=== PATIENT | female | born 1940 | race Caucasian/White ===

== ENCOUNTER → 2024-12-05 | Outpatient (CLI) | payer MEDICARE, OTHER, SELFPAY ==
[2024-12-05 12:41] LABS: Hematocrit 33.8 % (37-47); Hemoglobin 11.4 g/dL (12.0-15.0); Immature Granulocytes Count 0.010 X10^3/uL (0.0-0.0); Mean Corp Hgb Conc 33.7 g/dL (32-36); Mean Corpuscular Volume 90.1 fL (81-99); Mean Platelet Vol. 10.9 fl (6.2-12.0); NRBC Flagged by Analyzer 0 % (0-5); POSITIVE COUNT YES; POSITIVE DIFFERENTIAL YES; RBC Distribution Width CV 14.7 % (11.6-14.6); RBC Distribution Width SD 49.1 fl (35.1-43.9); Red Blood Count 3.75 M/mm3 (4.2-5.4); White Blood Count 2.5 K/mm3 (4.4-11.0)
[2024-12-05 13:31] LABS: Differential Indicated SCAN CRITERIA MET
[2024-12-05 13:45] LABS: Platelet Count 49 K/mm3 (150-450)
[2024-12-05 14:01] LABS: AST(SGOT) 44 U/L (<=31); Alanine Aminotransfer ALT/SGPT 33 U/L (<=34); Albumin, Serum 3.6 g/dL (3.4-4.8); Alkaline Phosphatase 78 U/L (35-104); Chloride 107 mmol/L (98-108); Potassium 4.3 mmol/L (3.3-5.1)
[2024-12-05 15:44] LABS: Anion Gap 12 (5-15); BUN 20 mg/dL (4-19); BUN/Creat Ratio 30.3 RATIO (10-20); Calcium,Total 9.8 mg/dL (7.6-11.0); Carbon Dioxide 19.5 mmol/L (21.0-32.0); Cholesterol 192 mg/dL (<=200); Globulin 3.6 g/dL (2.2-4.2); Glucose 136 mg/dL (70-99); Low Density Lipoprotein Calc. 102 mg/dL; Triglycerides 119 mg/dL; Very Low Density Lipoprotein 24 mg/dL (5-40); cholesterol:hdl ratio screen 2.92
== END | disposition home or self-care (01) ==
LOC: MTLAB 11:16
PROVIDERS: PCP Nurse Practitioner Family; Referring Provider Nurse Practitioner Family; Visit Provider Nurse Practitioner Family
DX: E78.5 Hyperlipidemia, unspecified (principal); I10 Essential (primary) hypertension
CPT/HCPCS: 36415; 80053; 80061; 85025

== ENCOUNTER 2025-01-15 06:36 | Day surgery (SDC) | payer MEDICARE, OTHER, SELFPAY ==
--- NOTE | 2025-01-14 16:22 | PAT.ANESEVAL ---
Pre-Assessment Diagnosis/Proposed Procedure Planned Operative Procedure(s): COLONOSCOPY Anesthesia History Anesthesia History - optimization consultant: Anesthesia History - optimization consultant Hx Hospitalization No 01/14/25 08:29 Any Problems With Anesthesia No 01/14/25 08:29 Cholinesterase deficiency No 01/14/25 08:29 You/Your Family Experience No 01/14/25 08:29 fever (hyperthermia) with Relationship Recent Exposure to Contagious Disease Does patient have nerve No 01/14/25 08:29 stimulator Patient instructed to have device shut off --Does patient have Pacemaker or ICD? When Was Last Pacemaker Check QUESTION #4 FULL TEXT: You/Your Family Experience fever (hyperthermia) with Anesthesia Last Oral Intake Last Oral intake: Last Oral Intake NPO since Meds taken in AM with sips of water? Meds patient instructed to take am of surgery PONV PONV - optimization consultant: PONV - optimization consultant Female Yes 01/14/25 08:29 HX of Motion Sickness No 01/14/25 08:29 HX of N/V After Surgery No 01/14/25 08:29 Non-Smoker Yes 01/14/25 08:29 Duration of Surgery greater No 01/14/25 08:29 than 60 minutes Number of Risk Factors 2 01/14/25 08:29 PONV Score Moderate Risk 01/14/25 08:29 Height & Weight Height & Weight: Anesthesia: Height & Weight Height 5 ft 6 in 01/09/25 09:13 Respiratory Assessment Respiratory Assessment - optimization consultant: Respiratory Tract Infection Hx - optimization consultant Hx Respiratory Tract Infection No 01/14/25 08:29 STOP Sleep Apnea STOP Sleep Apnea - optimization consultant: STOP Sleep Apnea - optimization consultant Hx Hypertension No 01/14/25 08:29 Hx Sleep Apnea No 01/14/25 08:29 CPAP BIPAP Do you snore loudly (louder No 01/14/25 08:29 than talking or can be heard Do you often feel tired/ No 01/14/25 08:29 fatigued/ sleepy during daytime? Has anyone observed you stop No 01/14/25 08:29 breathing during sleep? STOP Results Negative 01/14/25 08:29 QUESTION #5 FULL TEXT : Do you snore loudly (louder than talking or can be heard through closed doors)? 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 Specify any problems Hx of Preganancy in last 3 No 01/14/25 08:29 Months Nurse Filling Out Transfusion VLEHREYDON 01/14/25 08:29 & Questions: Date: 01/14/25 01/14/25 08:29 Time: 08:37 01/14/25 08:29 Patient unable to answer at this time (ie. confused, unrespo /Reproduction History /Reproductive History - optimization consultant: /Reproductive Hx- optimization consultant Hx Now No 01/14/25 08:29 Gestational Age (in weeks): EDC: Hx Hx Para Hx Section SAB No 01/14/25 08:29 Does the father of the baby or his family experience fever w Father of the baby Malignant Hypertension history comment [facility], [facility] Medical History (Updated 01/14/25 @ 08:36 by Kathie Alberto) Wears dentures Wears glasses Post-menopausal Cancer Diabetes Bladder disease Former smoker History of echocardiogram Abdominal pain Positive colorectal cancer screening using Cologuard test Home Medications ?Medication ?Instructions ?Recorded ?Last Taken ?Type cholecalciferol (vitamin D3) 25 25 mcg PO QDAY 01/09/25 Unknown History mcg (1,000 unit) capsule cinnamon bark 500 mg capsule 500 mg PO QDAY 01/09/25 Unknown History (Cinnamon) glipizide 5 mg tablet 5 mg PO QDAY 01/09/25 Unknown History potassium chloride 10 mEq 10 meq PO QDAY 01/09/25 Unknown History capsule,extended release Allergy/AdvReac Type Severity Reaction Status Date / Time metformin Allergy Mild Nausea Verified 01/14/25 08:27 Family History (Updated 01/09/25 @ 09:13 by Deb Wan LPN) Aunt Breast cancer Surgical History (Updated 01/14/25 @ 08:36 by Kathie Alberto) History of bilateral cataract extraction Hx of right mastectomy H/O: hysterectomy Social History (Updated 01/09/25 @ 09:13 by Deb Wan LPN) Smoking Status: Former smoker alcohol intake: never substance use type: does not use Audit: Pertinent Findings Pertinent Findings Additional pertinent findings: December 05, 2024. Platelet count is 49,000. Recommendation Anesthesia Recommendation Anesthesia recommendation: OPTIMIZED for anesthesia (Patient will get a repeat platelet count on day of surgery. Extent of procedure will depend on final results.)
[2025-01-15] VITALS (8 sets, daily range): BP systolic 99–130; BP diastolic 54–92; PULSE 66–88; RESP 16; TEMP 35.9–36.5; O2SAT 98; BMI 30.2
--- OUTSIDE RECORDS SUMMARY | 2025-01-15 06:40 | XMS RPT_ITS | CCD ---
Author Organization [facility] Inform ion Partnership [employer] [facility] Care Team Providers Care It Quality Assurance Analyst Name Role Phone Osiel Tejeda MD Primary Care Provider Murphy ARCHITECTURAL SUPERINTENDENT-C, Nicole Primary Care Physician Murphy ARCHITECTURAL SUPERINTENDENT-C, Nicole Attending Physician Murphy ARCHITECTURAL SUPERINTENDENT-C, Nicole Referring Provider Murphy, Nicole Primary Care Unavailable Murphy, Nicole Referring Unavailable Rome Gibson Attending Unavailable Nicole Arrington Primary Care Unavailable Murpyh, Nicole Attending Unavailable Murphy, Nicole Referring Unavailable Murphy Nicole Primary Care Unavailable Rome Gibson Attending Unavailable Allergies Allergy Classification Reported Allergen(s) Allergy Type Date of Onset Reaction(s) Facility (3 sources) metFORMIN Drug Allergy 10-16-2015 Other: See Comments [facility] Medications Completed/Discontinued Medications Medication Drug Class(es) Dates Sig (Normalized) Sig (Original) [id number] 200 actuat albuterol 0.09 mg/actuat metered dose inhaler (6 sources) beta2-Adrenergic Agonist Start: 05-31-2017 take 2 puff(s) by inhalation every four hours as needed albuterol HFA (PROAIR HFA) 90 mcg/actuation inhaler Inhale 2 Puffs as instructed every 4 hours as needed. 3 Inhaler 1 05/31/2017 Active Start: 10-05-2016 take 2.5 mg by inhal ation every six hours as needed albuterol (PROVENTIL) 2.5 mg /3 mL (0.083 %) nebulizer solution Use 3 mL via nebulizer every 6 hours as needed. Daily as needed 1 Package 1 10/05/2016 Active Comment on above: Use 3 mL via nebuliz er every 6 hours as needed. Daily as needed Inhale 2 Puffs as in structed every 4 hours as needed. Blood-Glucose Meter (FREESTYLE LITE METER) monitoring kit (3 sources) Start: Blood-Glucose Meter (FREESTYLE LITE METER) monitoring kit Patient tests 3 times daily DX E11.65 1 Each 0 01/27/2017 Active Comment on above: Patient tests 3 time s daily DX E11.65 canagliflozin 300 mg oral tablet (3 sources) Sodium-Glucose Cotransporter 2 Inhibitor Start: take 1 tablet by mouth once daily at breakfast canagliflozin (INVOKANA) 300 mg tablet Take 1 tablet by mouth daily with breakfast. 90 tablet 3 06/05/2020 Active Comment on above: Take 1 tablet by bridger th daily with breakfast. glipiZIDE 5 mg oral tablet (3 sources) Sulfonylurea Start: glipiZIDE (GLUCOTROL) 5 mg tablet Indications: Uncontrolled type 2 diabetes mellitus with complication, with long-term current use of insulin TAKE 1 TABLET TWICE A DAY WITH BREAKFAST AND DINNER 180 tablet 0 01/26/2021 Active Comment on above: TAKE 1 TABLET TWICE A DAY WITH BREAKFAST AND DINNER 3 ml insulin glargine 100 unt/ml pen injector (3 sources) Insulin Analog Start: insulin glargine (LANTUS SOLOSTAR U-100 INSULIN) 100 unit/mL (3 mL) INJECT 38 UNITS UNDER THE SKIN EVERY EVENING 15 Pen 3 12/06/2019 Active Comment on above: INJECT 38 UNITS UNDE R THE SKIN EVERY EVENING isopropyl alcohol 0.7 ml/ml medicated pad (3 sources) Start: ALCOHOL PREP PADS Use 3 pads per day 300 Each 3 12/06/2019 Active Comment on above: Use 3 pads per day Miscellaneous Medical Supply (BLOOD PRESSURE CUFF) misc (3 sources) Start: Miscellaneous Medical Supply (BLOOD PRESSURE CUFF) misc Indications: Essential hypertension 1 Units as directed. 1 Each 0 08/04/2017 Active Comment on above: 1 Units as directed. omeprazole 20 mg delayed release oral capsule (3 sources) Proton Pump Inhibitor Start: omeprazole (PRILOSEC) 20 mg capsule TAKE 1 CAPSULE EVERY MORNING 90 capsule 1 12/26/2017 Active Comment on above: TAKE 1 CAPSULE EVERY MORNING PARoxetine hydrochloride 20 mg oral tablet (3 sources) Serotonin Reuptake Inhibitor Start: PARoxetine (PAXIL) 20 mg tablet TAKE 1 TABLET DAILY BEFORE NOON 90 tablet 0 03/16/2021 Active Comment on above: TAKE 1 TABLET DAILY BEFORE NOON rosuvastatin calcium 10 mg oral tablet (3 sources) HMG-CoA Reductase Inhibitor Start: rosuvastatin (CRESTOR) 10 mg tablet TAKE 1 TABLET DAILY 90 tablet 1 11/12/2020 Active Comment on above: TAKE 1 TABLET DAILY sAXagliptin 5 mg oral tablet (3 sources) Dipeptidyl Peptidase 4 Inhibitor Start: take 1 tablet by mouth once daily sAXagliptin (ONGLYZA) 5 mg tab Take 1 tablet by mouth once daily. 90 tablet 3 12/06/2019 Active Comment on above: Take 1 tablet by bridger th once daily. valsartan 40 mg oral tablet (3 sources) Angiotensin 2 Receptor Poornima Start: valsartan (DIOVAN) 40 mg tablet Indications: Essential hypertension TAKE 1 TABLET DAILY 90 tablet 0 03/13/2021 Active Comment on above: TAKE 1 TABLET DAILY zafirlukast 20 mg oral tablet (3 sources) Leukotriene Receptor Antagonist Start: zafirlukast (ACCOLATE) 20 mg tablet TAKE 1 TABLET TWICE A DAY 60 tablet 0 04/28/2021 Active Comment on above: TAKE 1 TABLET TWICE A DAY Problems Active Problems Problem Classification Problem Date Documented Da te Episodic/Chronic Diabetes mellitus with complications (3 sources) Type 2 diabetes mellitus; Translations: [Type 2 diabetes mellitus with diabetic polyneuropathy] Onset: 12-06-2019 12-06-2019 Chronic Disorders of lipid metabolism (4 sources) Mixed hyperlipidemia; Translations: [Mixed hyperlipidemia] Onset: 05-20-2016 05-20-2016 Chronic Essential hypertension (4 sources) Essential hypertension; Translations: [Essential (primary) hypertension] Onset: 02-03-2017 02-03-2017 Chronic Nutritional deficiencies (3 sources) Vitamin D deficiency; Translations: [Vitamin D deficiency, unspecified] Onset: 05-20-2016 05-20-2016 Chronic Other gastrointestinal disorders (1 source) Other fecal abnormalities; Translations: [Other fecal abnormalities] Onset: 01-09-2025 Episodic Other nutritional; endocrine; and metabolic disorders (3 sources) Obese class II; Translations: [Obesity, unspecified] Onset: 08-04-2017 08-04-2017 Chronic Other nutritional; endocrine; and metabolic disorders (3 sources) Severe obesity; Translations: [Morbid (severe) obesity due to excess calories] Onset: 02-05-2019 02-05-2019 Chronic Past or Other Problems Problem Classification Problem Date Documented Da te Episodic/Chronic Other screening for suspected conditions (not mental disorders or infectious disease) (3 sources) Patient encounter status; Translations: [Encounter for screening for malignant neoplasm of colon] Onset: 02-03-2017 02-03-2017 Episodic Results Test Name Value Interpretation Reference Range Facility Surgery Visit Reporton 01-09 Surgery Visit Report [facility] [address] [place] [address] OFFICE VISIT Date of Service: 01/09/25 MR#: [id number] Acct: [id number] Name: ELIZA TOMAS Rep #: [id number] : 1940 Provider: Dr. Rome chatman MD Age/Sex: 84/F Location: [facility] Status: Signed Intake Vital Signs 01/09/25 09:13 Height 5 ft 6 in Weight: 189 lb 4 oz BMI 30.5 BP 143/78 H Blood Pressure Location Lt brachial Position Sitting Respiration 18 Pulse 69 Pulse Source Monitor Temp 97.6 F L Temp Source Temporal Pulse Oximetry (%) 97 Oxygen Delivery Method room air Intake Visit Reasons: POSITIVE COLOGUARD Chief Complaint: positive cologuard Accompanied by: Sister Is patient in pain?: Yes (abdominal cramping) Allergies No Known Allergies Allergy (Unverified 01/09/25 09:14) Medications ???Medication ???Instructions ???Recorded ???Confirmed ???Type cholecalciferol (vitamin D3) 25 25 mcg PO QDAY 01/09/25 01/09/25 H istory mcg (1,000 unit) capsule cinnamon bark 500 mg capsule 500 mg PO QDAY 01/09/25 01/09/25 H istory (Cinnamon) glipizide 5 mg tablet 5 mg PO QDAY 01/09/25 01/09/25 His tory potassium chloride 10 mEq 10 meq PO QDAY 01/09/25 01/09/25 H istory capsule,extended release Have you fallen in the past year?: No PFSH Medical History (Updated 01/09/25 @ 09:12 by Deb Wan LPN) Abdominal pain Positive colorectal cancer screening using Cologuard test Surgical History (Updated 01/09/25 @ 09:12 by Deb Wan LPN) H/O: hysterectomy Family History (Updated 01/09/25 @ 09:13 by Deb Wna LPN) Aunt Breast cancer Social History (Updated 01/09/25 @ 09:13 by Deb Wan LPN) Smoking Status: Never smoker alcohol intake: never substance use type: does not use HPI HPI HPI: The patient is a 84-year-old female who underwent recent Cologuard testing. She was found to be positive. She has never had a colonoscopy previously performed. Her primary care physician has recommended colonoscopy as a follow-up to the positive Cologuard test. Patient denies any significant family history of colon polyps or colon cancer. She denies any significant blood in the stool or black or tarry stools. She does state that she periodically will notice a little bit of blood on toilet tissue after bowel movements. ROS General General: Yes fatigue and breast cancer; No weight change, appetite, colon cancer or weakness HEENT HEENT: Yes difficulty swallowing and eye surgery; No eye injury, swollen glands or hoarseness Endo Endocrine: Yes diabetes mellitus; No thyroid disease, thyroid cancer, Hair loss, heat intolerance or cold intolerance Skin Skin: No rash or changing moles Musc Musculoskeletal: Yes back problems; No arthritis, rheumatoid arthritis, gout or joint pain Cardio Cardiovascular: No murmur, pacemaker, heart disease, atrial fibrillation, high blood pressure, heart attack, heart stent, palpitations, shortness of breath with exertion or chest pain Psych Psychiatric: No depression, anxiety or hearing voices Resp Respiratory: No shortness of breath, No sleep apnea, No cough, No COPD, No asthma, No emphysema and No wheezing Gastro Gastrointestinal: Yes abdominal pain, No nausea or vomiting, No diarrhea, No constipation, No blood in stool, No acid reflux, No hemorrhoids, No ulcers, No gallbladder problem and No black,tarry stools Dsehaun Hematologic: No blood thinners, No blood disorders, No bleeding, No anemia and No blood clots Neuro Neurologic: No numbness, No tingling and No weakness Exam Const General: cooperative, healthy appearing, comfortable and no acute distress HENMT Head: normal to inspection Eyes General: appearance normal, both eyes and all related structures Neck Neck: normal visual inspection Resp Effort Inspection: normal respiratory effort and able to speak in complete sentences GI Inspection: normal to inspection Assessment and Plan Assessment and Plan (1) Positive colorectal cancer screening using Cologuard test: Status: Acute Plan: The patient is a 84-year-old female with a positive Cologuard test recently. I have offered her a colonoscopy. We discussed the details of the planned procedure including the risks benefits and alternatives. She wishes to proceed. This will be scheduled in a timely manner. Coding Level of Care Code Off vis,new,level 3 Diagnoses Positive colorectal cancer screening using Cologuard test R19.5 Clinical Quality Measures Falls Risk Screening/Assistive Devices Have you fallen in the past year?: No 01/09/25 1012 Date Rome Jean Signature: Date (more content not included)... Normal [facility] Absolute lymphocyte countOrd ered By: Nicole Arrington on 12-05-2024 Lymphocytes Auto (Unsp spec) [#/Vol] 0.39 10*3/uL Low 0.83-4.51 [facility] Absolute neutrophil countOrd ered By: Nicole Arrington on 12-05-2024 Neutrophils (Bld) [#/Vol] 1.7 10*3/uL Low 2.0-7.7 [facility] Anion gap in Serum or Plasma Ordered By: Nicole Arrington on 12-05-2024 Anion gap [Moles/Vol] 12 mmol/L 5-15 [facility] Comment on above: Previous reported re sult: 10 Edited by: LYNDA on 12/05/24:1544 AMENDED REPORT 12/05/24 1544 GAP previously reported as: 10 Automated lymphocyte count a s percentage of total leukocytesOrdered By: Nicole Arrington on 12-05-2024 Lymphocytes/100 WBC Auto (Unsp spec) 15.7 % Low 19-41 [facility] BUN/creatinine ratioOrdered By: Nicole Arrington on 12-05-2024 Urea nitrogen/Creatinine [Mass ratio] 30.3 mg/mg High 10-20 [facility] Comment on above: Previous reported re sult: 30.1 RATIOEdited by: AUTOINS on 12/05/24:1544 AMENDED REPORT 12/05/24 1544 BUN/CRE previously reported as: 30.1 H RATIO Basophil percentageOrdered B y: Nicole Arrington on 12-05-2024 Basophils/100 WBC (Bld) 0.8 % 0-1 [facility] Bilirubin, totalOrdered By: Nicole Arrington on 12-05-2024 Bilirubin [Mass/Vol] 0.87 mg/dL 0.00-1.30 [facility] CBC W/Diff, Automatedon 10- Platelets (Bld) [#/Vol] 49 10*3/uL Invalid Interpretation Code 150450 [facility] Comment on above: Result Comment: CRIT ICAL VALUE CALLED TO YONI PANTOJA 12/05/24 1345 Priyanka Miller. RESULTS READ BACK BY REED. AMENDED REPORT 12/05/24 1345 PLT previously reported as: 49 *L K/mm3 Performed By: #### L 500.4100, L100.0100, L500.4050 #### [facility] [address] [place], [place], [id number] Calculated very low density lipoprotein (VLDL) cholesterol measurementOrdered By: Nicole Arrington on 12-05-2024 Calculated very low density lipoprotein (VLDL) cholesterol measurement 24 mg/dL - [facility] Carbon dioxide, total [Moles /volume] in Central venous bloodOrdered By: Nicole Arrington on 12-05-2024 CO2 [Moles/Vol] 19.5 mmol/L Low 21.0-32.0 [facility] Comment on above: Previous reported re sult: 21.4 mmol/LEdited by: AUTOINS on 12/05/24:1544 AMENDED REPORT 12/05/241543 CO2 previously reported as: 21.4 mmol/L Chloride assayOrdered By: Ra sridevi Arrington on 12-05-2024 Chloride [Moles/Vol] 107 mmol/L 98-108 [facility] Comprehensive Metabolic Prof ilon 12-05-2024 Albumin/Globulin [Mass ratio] 1.0 {ratio} Normal 0.9-2.4 [facility] Comment on above: Result Comment: AMENDED REPORT 12/05/241543 A/G previously reported as: 1.1 RATIO Performed By: #### L 500.4100, L100.0100, L500.4050 #### [facility] [address] [place], [address] BUN/CRE 30.3 RATIO High 10-20 [facility] Comment on above: Result Comment: AMENDED REPORT 12/05/241543 BUN/CRE previously reported as: 30.1 H RATIO Performed By: #### L 500.4100, L100.0100, L500.4050 #### [facility] [address] [place], [address] Calcium [Mass/Vol] 9.8 mg/dL Normal 7.6-11.0 [facility] Comment on above: Result Comment: AMENDED REPORT 12/05/241543 CA previously reported as: 9.6 mg/dL Performed By: #### L 500.4100, L100.0100, L500.4050 #### [facility] [address] [place], [address] CO2 [Moles/Vol] 19.5 mmol/L Low 21.0-32.0 [facility] Comment on above: Result Comment: AMENDED REPORT 12/05/241543 CO2 previously reported as: 21.4 mmol/L Performed By: #### L 500.4100, L100.0100, L500.4050 #### [facility] [address] [place], [address] Creatinine [Mass/Vol] 0.67 mg/dL Low 0.70-1.20 [facility] Comment on above: Result Comment: AMENDED REPORT 12/05/24 1544 CREAT,SERUM previously reported as: 0.65 L mg/dL Performed By: #### L 500.4100, L100.0100, L500.4050 #### [facility] [address] [place], [address] GAP 12 Normal 5-15 [facility] Comment on above: Result Comment: AMENDED REPORT 12/05/24 154 GAP previously reported as: 10 Performed By: #### L 500.4100, L100.0100, L500.4050 #### [facility] [address] [place], [address] Globulin (S) [Mass/Vol] 3.6 g/dL Normal 2.2-4.2 [facility] Comment on above: Result Comment: AMENDED REPORT 12/05/24 154 GLOB previously reported as: 3.3 g/dL Performed By: #### L 500.4100, L100.0100, L500.4050 #### [facility] [address] [place], [address] Glucose [Mass/Vol] 136 mg/dL High 70-99 [facility] Comment on above: Result Comment: AMENDED REPORT 12/05/24 154 GLU previously reported as: 133 H mg/dL Performed By: #### L 500.4100, L100.0100, L500.4050 #### [facility] [address] [place], [address] T PROT 7.2 g/dL Normal 5.9-8.4 [facility] Comment on above: Result Comment: AMENDED REPORT 12/05/24 1544 T PROT previously reported as: 7.0 g/dL Performed By: #### L 500.4100, L100.0100, L500.4050 #### [facility] [address] [place], [address] Urea nitrogen [Mass/Vol] 20 mg/dL High 4-19 [facility] Comment on above: Performed By: #### L 500.4100, L100.0100, L500.4050 #### [facility] [address] [place], [address] Eosinophil percentageOrdered By: Nicolechapo Arrington on 12-05-2024 Eosinophils/100 WBC (Bld) 2.4 % 0-5 [facility] Erythrocyte distribution wid th ratioOrdered By: [place] Murphy on 12-05-2024 Erythrocyte distribution width (RBC) [Ratio] 14.7 % High 11.6-14.6 [facility] Erythrocyte distribution wid th standard deviationOrdered By: [place] Murphy on 12-05-2024 Erythrocyte distribution width (RBC) [Ratio] 49.1 fl High 35.1-43.9 [facility] Glomerular filtration rate ( GFR) estimation/1.73 sq m using serum, plasma, or whole bOrdered By: Nicolechapo Arrington on 12-05-2024 GFR/1.73 sq M.predicted among non-blacks MDRD (S/P/Bld) [Vol rate/Area] 88 mL/min/{1.73_m2} >60 [facility] Comment on above: mL/min/1.73m2 CKD-EP I Creatinine Equation (2020) Hematocrit Auto (Bld) [Volum e fraction]Ordered By: Nicole Arrington on 12-05-2024 Hematocrit (Bld) [Volume fraction] 33.8 % Low 37-47 [facility] Hemoglobin measurementOrdere d By: Nicole Arrington on 12-05-2024 Hemoglobin (Bld) [Mass/Vol] 11.4 g/dL Low 12.0-15.0 [facility] Immature granulocytes/100 WB C Auto (Bld)Ordered By: Nicole Arrington on 12-05-2024 Immature granulocytes/100 WBC (Bld) 0.400 % 0.0-0.9 [facility] Comment on above: IG% - Immature Granu locytes (promyelocytes, myelocytes and metamyelocytes) > 1% indicates that a LEFT SHIFT is Present. LDL calc ser/plasOrdered By: Nicole Arrington on 12-05-2024 Cholesterol in LDL [Mass/Vol] 102 mg/dL [facility] Comment on above: Rxhrvllogl=391-877 m g/dL & Higher Fwiw=988 mg/dL or greaterFriedwald Equation for LDL-C Laboratory - Chemistry and C hemistry - challengeOrdered By: Nicole Arrington on 12-05-2024 AST [Catalytic activity/Vol] 44 U/L High <32 [facility] Lipid Profileon 12-05-2024 CHOL:HDL 2.92 Normal [facility] Comment on above: Performed By: #### L 500.4100, L100.0100, L500.4050 #### [facility] [address] [place], [place], [id number] Cholesterol [Mass/Vol] 192 mg/dL Normal <=200 [facility] Comment on above: Result Comment: Chol esterol level, Desirable <200 mg/dL Borderline high cholesterol 200-239 mg/dL High cholesterol >=240 mg/dL Recommendations of the NCEP Adult Treatment Panel for the following risk-cutoff thresholds for the [place] population. Performed By: #### L 500.4100, L100.0100, L500.4050 #### [facility] [address] [place], [place], [address] Cholesterol in HDL [Mass/Vol] 66 mg/dL Normal [facility] Comment on above: Result Comment: Jana onal Cholesterol Education Program (NCEP) guidelines: <40 mg/dL: Low HDL-cholesterol (major risk factor for CHD) >= 60 mg/dL: High HDL-cholesterol (negative risk factor for CHD) HDL-cholesterol is affected by a number of factors, e.g. smoking, exercise, hormones, sex and age. Performed By: #### L 500.4100, L100.0100, L500.4050 #### [facility] [address] [place], [address] Cholesterol in LDL [Mass/Vol] 102 mg/dL Normal [facility] Comment on above: Result Comment: Bord bfjwbw=503-599 mg/dL Higher Ikie=993 mg/dL or greater Friedwald Equation for LDL-C Performed By: #### L 500.4100, L100.0100, L500.4050 #### [facility] [address] [place], [address] Cholesterol in VLDL [Mass/Vol] 24 mg/dL Normal 5-40 [facility] Comment on above: Performed By: #### L 500.4100, L100.0100, L500.4050 #### [facility] [address] [place], [address] Triglyceride [Mass/Vol] 119 mg/dL Normal [facility] Comment on above: Result Comment: The drugs N-Acetylcysteine and Metamizole may falsely depress this assay. Normal range: <150 mg/dL Borderline High: 150-199 mg/dL High: 200-499 mg/dL Very High: >500 mg/dL Performed By: #### L 500.4100, L100.0100, L500.4050 #### [facility] [address] [place], [address] MCV (mean corpuscular volume ) determinationOrdered By: Nicole Arrington on 12-05-2024 MCV (RBC) [Entitic vol] 90.1 fL 81-99 [facility] Mean corpuscular hemoglobin (MCH) determinationOrdered By: Nicole Arrington on 12-05-2024 MCH (RBC) [Entitic mass] 30.4 pg 27.0-32.0 [facility] Mean corpuscular hemoglobin concentration (MCHC) determinationOrdered By: Nicole Arrington on 12-05-2024 MCHC (RBC) [Mass/Vol] 33.7 g/dL 32-36 [facility] Mean platelet volume determi nationOrdered By: Nicole Arrington on 12-05-2024 Platelet mean volume (Bld) [Entitic vol] 10.9 fL 6.2-12.0 [facility] Monocyte percentageOrdered B y: Nicole Arrington on 12-05-2024 Monocytes/100 WBC (Bld) 11.3 % High 0-10 [facility] Neutrophil percentageOrdered By: Nicole Arrington on 12-05-2024 Neutrophils/100 WBC (Bld) 69.4 % 47-70 [facility] Nucleated red blood cell per centageOrdered By: Nicole Arrington on 12-05-2024 Nucleated RBC/100 WBC (Bld) [Ratio] 0 % 0-5 [facility] Platelet countOrdered By: Ra sridevi Arrington on 12-05-2024 Platelets (Bld) [#/Vol] 49 10*3/uL Critically low 150-450 [facility] Comment on above: CRITICAL VALUE PALOMO D TO YONI PANTOJA12/05/24 1345 Priyanka Miller.RESULTS READ BACK BY REED. Previous reported result: 49 K/lb4Ceioie by: DEEPA on 12/05/24:1345 AMENDED REPORT 12/05/24 1345 PLT previously reported as: 49 *L K/mm3 Platelet estimateOrdered By: Nicole Arrington on 12-05-2024 Platelets LM Ql (Bld) MKD DEC ADEQ [facility] Potassium measurement (mass/ volume)Ordered By: Nicole Arrington on 12-05-2024 Potassium (Unsp spec) [Mass/Vol] 4.3 mmol/L 3.3-5.1 [facility] RBC Auto (Bld) [#/Vol]Ordere d By: Nicole Arrington on 12-05-2024 RBC (Bld) [#/Vol] 3.75 10*6/uL Low 4.2-5.4 [facility] Screening total cholesterol/ high density lipoprotein (HDL) cholesterol ratioOrdered By: Nicole Arrington on 12-05-2024 Cholesterol.total/Choles terol in HDL [Mass ratio] 2.92 {ratio} [facility] Serum creatinine measurement (mass/volume)Ordered By: Nicole Arrington on 12-05-2024 Creatinine [Mass/Vol] 0.67 mg/dL Low 0.70-1.20 [facility] Comment on above: Previous reported re sult: 0.65 mg/dLEdited by: LYNDA on 12/05/24:1544 AMENDED REPORT 12/05/24 1544 CREAT,SERUM previously reported as: 0.65 L mg/dL Serum globulin measurementOr dered By: Nicole Arrington on 12-05-2024 Globulin (S) [Mass/Vol] 3.6 g/dL 2.2-4.2 [facility] Comment on above: Previous reported re sult: 3.3 g/dLEdited by: LYNDA on 12/05/24:1544 AMENDED REPORT 12/05/241543 GLOB previously reported as: 3.3 g/dL Serum glucose measurement (m ass/volume)Ordered By: Nicole Arrington on 12-05-2024 Glucose [Mass/Vol] 136 mg/dL High 70-99 [facility] Comment on above: Previous reported re sult: 133 mg/dLEdited by: LYNDA on 12/05/24:1544 AMENDED REPORT 12/05/24 154 GLU previously reported as: 133 H mg/dL Serum or plasma alanine jefferson otransferase (ALT) measurementOrdered By: Nicole Arrington on 12-05-2024 ALT [Catalytic activity/Vol] 33 U/L <35 [facility] Serum or plasma albumin vikki urement (mass/volume)Ordered By: Nicole Arrington on 12-05-2024 Albumin [Mass/Vol] 3.6 g/dL 3.4-4.8 [facility] Serum or plasma albumin/glob ulin mass ratioOrdered By: Nicole Arrington on 12-05-2024 Albumin/Globulin [Mass ratio] 1.0 {ratio} 0.9-2.4 [facility] Comment on above: Previous reported re sult: 1.1 RATIOEdited by: LYNDA on 12/05/24:1544 AMENDED REPORT 12/05/241543 A/G previously reported as: 1.1 RATIO Serum or plasma alkaline sade sphatase measurementOrdered By: Nicole Arrington on 12-05-2024 ALP [Catalytic activity/Vol] 78 U/L 35-104 [facility] Serum or plasma calcium vikki urement (mass/volume)Ordered By: Nicole Arrington on 12-05-2024 Calcium [Mass/Vol] 9.8 mg/dL 7.6-11.0 [facility] Comment on above: Previous reported re sult: 9.6 mg/dLEdited by: AUTOINS on 12/05/24:1544 AMENDED REPORT 12/05/24 1544 CA previously reported as: 9.6 mg/dL Serum or plasma cholesterol in HDL measurement (mass/volume)Ordered By: Nicole Arrington on 12-05-2024 Cholesterol in HDL [Mass/Vol] 66 mg/dL >40 [facility] Comment on above: National Cholesterol Education Program (NCEP) guidelines:<40 mg/dL: Low HDL-cholesterol (major risk factor for CHD)>= 60 mg/dL: High HDL-cholesterol (negative risk factor for CHD)HDL-cholesterol is affected by a number of factors, e.g. smoking, exercise, hormones, sex and age. Serum or plasma cholesterol measurement (mass/volume)Ordered By: Nicole Arrington on 12-05-2024 Cholesterol [Mass/Vol] 192 mg/dL <201 [facility] Comment on above: Cholesterol level, D esirable <200 mg/dLBorderline high cholesterol 200-239 mg/dLHigh cholesterol >=240 mg/dLRecommendations of the NCEP Adult Treatment Panel for the following risk-cutoff thresholds for the [place] population. Serum or plasma urea nitroge n measurement (mass/volume)Ordered By: Nicole Arrington on 12-05-2024 Urea nitrogen [Mass/Vol] 20 mg/dL High 4-19 [facility] Sodium levelOrdered By: Melissa Arrington on 12-05-2024 Sodium [Moles/Vol] 139 mmol/L 133-145 [facility] Total proteinOrdered By: Josh Arrington on 12-05-2024 Protein [Mass/Vol] 7.2 g/dL 5.9-8.4 [facility] Comment on above: Previous reported re sult: 7.0 g/dLEdited by: AUTOINS on 12/05/24:1544 AMENDED REPORT 12/05/24 1544 T PROT previously reported as: 7.0 g/dL Triglycerides measurementOrd ered By: Nicole Arrington on 12-05-2024 Triglyceride [Mass/Vol] 119 mg/dL <199 [facility] Comment on above: The drugs N-Acetylcy steine and Metamizole may falsely depress this assay. Normal range: <150 mg/dLBorderline High: 150-199 mg/dLHigh: 200-499 mg/dLVery High: >500 mg/dL White blood cell (WBC) count Ordered By: Nicole Arrington on 12-05-2024 WBC (Bld) [#/Vol] 2.5 10*3/uL Low 4.4-11.0 [facility] 06-17-2021 ELIS Telephone (AGINTMLW) THOMELIZA I ([id number]) 1940 F Date Time Provider Department 06/17/21 OSIEL TEJEDA AGINTMLW During your visit today, we recorded the following information about you: Keyla Tate LPN 06/17/2021 10:48 AM Signed Attempted to reach pt via telephone to assist with establishment of a new PCP in our office. Also attempting to reach out for an ACO- A1C. Unable to reach patient via telephone, left voicemail requesting patient to call the office for the above. Keyla Tate LPN Allergies As of Date: 06/17/2021 Noted Allergy Reaction METFORMIN 10/16/2015 14 - Other: See Comments Comments: Abdominal pain Date Reviewed: 06/18/2020 Reviewed by: Osiel Tejeda - Fully Assessed Reason for Visit: ACO- A1C outreach [Other] Cmt: First attempt Prescriptions as of 06/17/2021 - zafirlukast (ACCOLATE) 20 mg tablet TAKE 1 TABLET TWICE A DAY - PARoxetine (PAXIL) 20 mg tablet TAKE 1 TABLET DAILY BEFORE NOON - valsartan (DIOVAN) 40 mg tablet TAKE 1 TABLET DAILY - glipiZIDE (GLUCOTROL) 5 mg tablet TAKE 1 TABLET TWICE A DAY WITH BREAKFAST AND DINNER - rosuvastatin (CRESTOR) 10 mg tablet TAKE 1 TABLET DAILY - canagliflozin (INVOKANA) 300 mg tablet Take 1 tablet by mouth daily with breakfast. - ALCOHOL PREP PADS Use 3 pads per day - blood sugar diagnostic (FREESTYLE LITE STRIPS) test strip USE TO TEST THREE TIMES A DAY (E11.8, E11.65, Z79.4); IDDM - Lancing Device (LANCING DEVICE WITH LANCETS) misc Use as instructed; IDDM, E 11.65 - insulin glargine (LANTUS SOLOSTAR U-100 INSULIN) 100 unit/mL (3 mL) INJECT 38 UNITS UNDER THE SKIN EVERY EVENING - sAXagliptin (ONGLYZA) 5 mg tab Take 1 tablet by mouth once daily. - Insulin [place], Disposable, (BD ULTRA-FINE MICRO PEN NEEDLE) 32 gauge x 1/4 USE 1 PEN NEEDLE TO INJECT UNDER THE SKIN ONCE DAILY - EASY COMFORT LANCETS 30 gauge misc 1 Each twice daily. E11.8, E11.65, Z79.4 - omeprazole (PRILOSEC) 20 mg capsule TAKE 1 CAPSULE EVERY MORNING - Miscellaneous Medical Supply (BLOOD PRESSURE CUFF) misc 1 Units as directed. - albuterol HFA (PROAIR HFA) 90 mcg/actuation inhaler Inhale 2 Puffs as instructed every 4 hours as needed. - Blood-Glucose Meter (FREESTYLE LITE METER) monitoring kit Patient tests 3 times daily DX E11.65 - albuterol (PROVENTIL) 2.5 mg /3 mL (0.083 %) nebulizer solution Use 3 mL via nebulizer every 6 hours as needed. 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 She is past due for a follow up with me. If she needs this complete, I need to see her. Otherwise, we have faxed the request to her electric hoist operator and she can call and follow up with them. Thanks. Dr. Nikhil Dale MA 02/12/2021 7:51 AM Signed Both phone VM box are full. REGGIE Bravo MA 02/13/2021 8:47 AM Signed Left message informing patient if she would like Dr. Tejeda to fill out form she will need to call and schedule appointment, also that form has been forwarded to electric hoist operator. REGGIE Melo MA 02/16/2021 5:11 PM Signed Left message informing patient that she needs to schedule appointment with Dr. Tejeda. Her Nuclear Medicine Technologist faxed us saying that she has cancelled appointments, so I told id she would like them to fill it out she would need to schedule with them. Order is placed in my fax folder Letty Dale MA Allergies As of Date: 02/12/2021 Noted Allergy Reaction METFORMIN 10/16/2015 14 - Other: See Comments Comments: Abdominal pain Date Reviewed: 06/18/2020 Reviewed by: Osiel Tejeda - Fully Assessed Reason for Visit: Orders [681] Prescriptions as of 02/16/2021 - glipiZIDE (GLUCOTROL) 5 mg tablet TAKE 1 TABLET TWICE A DAY WITH BREAKFAST AND DINNER - zafirlukast (ACCOLATE) 20 mg tablet TAKE 1 TABLET TWICE A DAY - valsartan (DIOVAN) 40 mg tablet TAKE 1 TABLET DAILY - rosuvastatin (CRESTOR) 10 mg tablet TAKE 1 TABLET DAILY - PARoxetine (PAXIL) 20 mg tablet TAKE 1 TABLET DAILY BEFORE NOON - canagliflozin (INVOKANA) 300 mg tablet Take 1 tablet by mouth daily with breakfast. - ALCOHOL PREP PADS Use 3 pads per day - blood sugar diagnostic (FREESTYLE LITE STRIPS) test strip USE TO TEST THREE TIMES A DAY (E11.8, E11.65, Z79.4); IDDM - Lancing Device (LANCING DEVICE WITH LANCETS) misc Use as instructed; IDDM, E 11.65 - insulin glargine (LANTUS SOLOSTAR U-100 INSULIN) 100 unit/mL (3 mL) INJECT 38 UNITS UNDER THE SKIN EVERY EVENING - sAXagliptin (ONGLYZA) 5 mg tab Take 1 tablet by mouth once daily. - Insulin [place], Disposable, (BD ULTRA-FINE MICRO PEN NEEDLE) 32 gauge x 1/4 USE 1 PEN NEEDLE TO INJECT UNDER THE SKIN ONCE DAILY - EASY COMFORT LANCETS 30 gauge misc 1 Each twice daily. E11.8, E11.65, Z79.4 - omeprazole (PRILOSEC) 20 mg capsule TAKE 1 CAPSULE EVERY MORNING - Miscellaneous Medical Supply (BLOOD PRESSURE CUFF) misc 1 Units as directed. - albuterol HFA (PROAIR HFA) 90 mcg/actuation inhaler Inhale 2 Puffs as instructed every 4 hours as needed. - Blood-Glucose Meter (FREESTYLE LITE METER) monitoring kit Patient tests 3 times daily DX E11.65 - albuterol (PROVENTIL) 2.5 mg /3 mL (0.083 %) nebulizer solution Use 3 mL via nebulizer every 6 hours as needed. Daily as needed Problem List As Of Date 02/12/2021 Noted Resolved Mixed hyperlipidemia [E78.2] 05/20/2016 Vitamin D deficiency [E55.9] 05/20/2016 Essential hypertension [I10] 02/03/2017 Abdominal pain [R10.9] 02/03/2017 08/04/2017 Nausea [R11.0] 02/03/2017 08/04/2017 Encounter for screening colonoscopy [Z12.11] 02/03/2017 Obesity, Class II, BMI 35-39.9 [E66.9] 08/04/2017 Class 2 severe obesity due to excess calories w*02/05/2019 Type 2 diabetes mellitus with diabetic polyneur*12/06/2019 Encounter Status:Closed by ANNETTE XAVIER on 02/13/21 [facility] OBSOLETEon 01-26-2021 OBSOLETE Refill (AGINTMLW) THOMELIZA Radha ([id number]) 1940 F Date Time Provider Department 01/26/21 OSIEL TEJEDA AGINTMLW During your visit today, we recorded the following information about you: Letty Dale MA 01/26/2021 8:44 AM Signed Pharmacy requesting refills as follows: Last Office Visit 06/18/20. Last Refill 07/29/20. Pending Prescriptions Disp Refills ZAFIRLUKAST 20 MG TABLET 180 tablet 3 Sig: TAKE 1 TABLET TWICE A DAY BILL: Yes Please review and advise. REGGIE Bravo MD 01/26/2021 9:48 AM Signed Patient is past due for a follow up. No further refills until seen. Thanks. Letty Dale MA 01/26/2021 2:34 PM Signed VM box was full. REGGIE Bravo MA 01/28/2021 11:02 AM Signed Left message informing her that she is due for follow up appointment. Letty Dale MA Allergies As of Date: 01/26/2021 Noted Allergy Reaction METFORMIN 10/16/2015 14 - Other: See Comments Comments: Abdominal pain Date Reviewed: 06/18/2020 Reviewed by: Osiel Tejeda - Fully Assessed Reason for Visit: Refill Request [94] Order(s):zafirlukast (ACCOLATE) 20 mg tabletTAKE 1 TABLET TWICE A DAYDisp: 180 tabletRfl: 0 Prescriptions as of 01/28/2021 - glipiZIDE (GLUCOTROL) 5 mg tablet TAKE 1 TABLET TWICE A DAY WITH BREAKFAST AND DINNER - zafirlukast (ACCOLATE) 20 mg tablet TAKE 1 TABLET TWICE A DAY - valsartan (DIOVAN) 40 mg tablet TAKE 1 TABLET DAILY - rosuvastatin (CRESTOR) 10 mg tablet TAKE 1 TABLET DAILY - PARoxetine (PAXIL) 20 mg tablet TAKE 1 TABLET DAILY BEFORE NOON - canagliflozin (INVOKANA) 300 mg tablet Take 1 tablet by mouth daily with breakfast. - ALCOHOL PREP PADS Use 3 pads per day - blood sugar diagnostic (FREESTYLE LITE STRIPS) test strip USE TO TEST THREE TIMES A DAY (E11.8, E11.65, Z79.4); IDDM - Lancing Device (LANCING DEVICE WITH LANCETS) misc Use as instructed; IDDM, E 11.65 - insulin glargine (LANTUS SOLOSTAR U-100 INSULIN) 100 unit/mL (3 mL) INJECT 38 UNITS UNDER THE SKIN EVERY EVENING - sAXagliptin (ONGLYZA) 5 mg tab Take 1 tablet by mouth once daily. - Insulin [place], Disposable, (BD ULTRA-FINE MICRO PEN NEEDLE) 32 gauge x 1/4 USE 1 PEN NEEDLE TO INJECT UNDER THE SKIN ONCE DAILY - EASY COMFORT LANCETS 30 gauge misc 1 Each twice daily. E11.8, E11.65, Z79.4 - omeprazole (PRILOSEC) 20 mg capsule TAKE 1 CAPSULE EVERY MORNING - Miscellaneous Medical Supply (BLOOD PRESSURE CUFF) misc 1 Units as directed. - albuterol HFA (PROAIR HFA) 90 mcg/actuation inhaler Inhale 2 Puffs as instructed every 4 hours as needed. - Blood-Glucose Meter (FREESTYLE LITE METER) monitoring kit Patient tests 3 times daily DX E11.65 - albuterol (PROVENTIL) 2.5 mg /3 mL (0.083 %) nebulizer solution Use 3 mL via nebulizer every 6 hours as needed. Daily as needed Problem List As Of Date 01/26/2021 Noted Resolved Mixed hyperlipidemia [E78.2] 05/20/2016 Vitamin D deficiency [E55.9] 05/20/2016 Essential hypertension [I10] 02/03/2017 Abdominal pain [R10.9] 02/03/2017 08/04/2017 Nausea [R11.0] 02/03/2017 08/04/2017 Encounter for screening colonoscopy [Z12.11] 02/03/2017 Obesity, Class II, BMI 35-39.9 [E66.9] 08/04/2017 Class 2 severe obesity due to excess calories w*02/05/2019 Type 2 diabetes mellitus with diabetic polyneur*12/06/2019 Prescriptions ordered this encounter Disp Refills Start End ZAFIRLUKAST 20 MG TABLET 180 * 0 01/26/2021 Sig: TAKE 1 TABLET TWICE A DAY Medications Discontinued During This Encounter Prescriptions - zafirlukast (ACCOLATE) 20 mg tablet (Discontinued) TAKE 1 TABLET TWICE A DAY Encounter Status:Closed by OISEL TEJEDA on 01/26/21 [facility] OBSOLETE Refill (ENDMED) ELIZA TOMAS I ([id number]) 1940 F Date Time Provider Department 01/26/21 CHERELLE ROJAS During your visit today, we recorded the following information about you: Nataly Frost MA 01/26/2021 9:18 AM Signed Requester: Pharmacy Last Visit in Endocrinology: Provider name: Cherelle OlearyTOM crawford , Date 06/05/2020 Next Scheduled Appt in Endo: Visit date not found Last Refill: 02/18/2020 Number of Refills given: 3 Pending Prescriptions Disp Refills GLIPIZIDE 5 MG TABLET 180 tablet 3 Sig: TAKE 1 TABLET TWICE A DAY WITH BREAKFAST AND DINNER BILL: No Please review and advise. Nataly Frost MA Allergies As of Date: 01/26/2021 Noted Allergy Reaction METFORMIN 10/16/2015 14 - Other: See Comments Comments: Abdominal pain Date Reviewed: 06/18/2020 Reviewed by: Osiel Tejeda - Fully Assessed Reason for Visit: Refill Request [94] Visit Diagnosis:Uncontroll ed type 2 diabetes mellitus with complication, with long-term current use of insulin (HCC) [E11.8, E11.65, Z79.4] Order(s):glipiZIDE (GLUCOTROL) 5 mg tabletTAKE 1 TABLET TWICE A DAY WITH BREAKFAST AND DINNERDisp: 180 tabletRfl: 0 Prescriptions as of 01/26/2021 - glipiZIDE (GLUCOTROL) 5 mg tablet TAKE 1 TABLET TWICE A DAY WITH BREAKFAST AND DINNER - zafirlukast (ACCOLATE) 20 mg tablet TAKE 1 TABLET TWICE A DAY - valsartan (DIOVAN) 40 mg tablet TAKE 1 TABLET DAILY - rosuvastatin (CRESTOR) 10 mg tablet TAKE 1 TABLET DAILY - PARoxetine (PAXIL) 20 mg tablet TAKE 1 TABLET DAILY BEFORE NOON - canagliflozin (INVOKANA) 300 mg tablet Take 1 tablet by mouth daily with breakfast. - ALCOHOL PREP PADS Use 3 pads per day - blood sugar diagnostic (FREESTYLE LITE STRIPS) test strip USE TO TEST THREE TIMES A DAY (E11.8, E11.65, Z79.4); IDDM - Lancing Device (LANCING DEVICE WITH LANCETS) [facility] Use as instructed; IDDM, E 11.65 - insulin glargine (LANTUS SOLOSTAR U-100 INSULIN) 100 unit/mL (3 mL) INJECT 38 UNITS UNDER THE SKIN EVERY EVENING - sAXagliptin (ONGLYZA) 5 mg tab Take 1 tablet by mouth once daily. - Insulin [place], Disposable, (BD ULTRA-FINE MICRO PEN NEEDLE) 32 gauge x 1/4 USE 1 PEN NEEDLE TO INJECT UNDER THE SKIN ONCE DAILY - EASY COMFORT LANCETS 30 gauge misc 1 Each twice daily. E11.8, E11.65, Z79.4 - omeprazole (PRILOSEC) 20 mg capsule TAKE 1 CAPSULE EVERY MORNING - Miscellaneous Medical Supply (BLOOD PRESSURE CUFF) misc 1 Units as directed. - albuterol HFA (PROAIR HFA) 90 mcg/actuation inhaler Inhale 2 Puffs as instructed every 4 hours as needed. - Blood-Glucose Meter (FREESTYLE LITE METER) monitoring kit Patient tests 3 times daily DX E11.65 - albuterol (PROVENTIL) 2.5 mg /3 mL (0.083 %) nebulizer solution Use 3 mL via nebulizer every 6 hours as needed. Daily as needed Problem List As Of Date 01/26/2021 Noted Resolved Mixed hyperlipidemia [E78.2] 05/20/2016 Vitamin D deficiency [E55.9] 05/20/2016 Essential hypertension [I10] 02/03/2017 Abdominal pain [R10.9] 02/03/2017 08/04/2017 Nausea [R11.0] 02/03/2017 08/04/2017 Encounter for screening colonoscopy [Z12.11] 02/03/2017 Obesity, Class II, BMI 35-39.9 [E66.9] 08/04/2017 Class 2 severe obesity due to excess calories w*02/05/2019 Type 2 diabetes mellitus with diabetic polyneur*12/06/2019 Prescriptions ordered this encounter Disp Refills Start End GLIPIZIDE 5 MG TABLET 180 * 0 01/26/2021 Sig: TAKE 1 TABLET TWICE A DAY WITH BREAKFAST AND DINNER Medications Discontinued During This Encounter Prescriptions - glipiZIDE (GLUCOTROL) 5 mg tablet (Discontinued) 1 tablet twice daily with breakfast and dinner Encounter Status:Closed by CHERELLE ROJAS on 01/26/21 [facility] CNCOon 12-18-2020 CNCO Letter Text [facility] OBSOLETEon 12-15-2020 OBSOLETE Refill (AGINTMLW) ELIZA TOMAS I ([id number]) 1940 F Date Time Provider Department 12/15/20 OSIEL TEJEDA AGINTMLW During your visit today, we recorded the following information about you: Keyla Tate LPN 12/15/2020 6:45 AM Signed Last Office Visit 06/18/2020. Last Refill 06/18/2020. Last labs 08/19/2020. Pending Prescriptions Disp Refills VALSARTAN 40 MG TABLET 90 tablet 3 Sig: TAKE 1 TABLET DAILY BILL: Yes Please review and advise. Keyla Tate LPN Allergies As of Date: 12/15/2020 Noted Allergy Reaction METFORMIN 10/16/2015 14 - Other: See Comments Comments: Abdominal pain Date Reviewed: 06/18/2020 Reviewed by: Osiel Tejeda - Fully Assessed Reason for Visit: Refill Request [94] Visit Diagnosis:Essential hypertension [I10] Order(s):valsartan (DIOVAN) 40 mg tabletTAKE 1 TABLET DAILYDisp: 90 tabletRfl: 0 Prescriptions as of 12/15/2020 - valsartan (DIOVAN) 40 mg tablet TAKE 1 TABLET DAILY - rosuvastatin (CRESTOR) 10 mg tablet TAKE 1 TABLET DAILY - PARoxetine (PAXIL) 20 mg tablet TAKE 1 TABLET DAILY BEFORE NOON - zafirlukast (ACCOLATE) 20 mg tablet TAKE 1 TABLET TWICE A DAY - canagliflozin (INVOKANA) 300 mg tablet Take 1 tablet by mouth daily with breakfast. - glipiZIDE (GLUCOTROL) 5 mg tablet 1 tablet twice daily with breakfast and dinner - ALCOHOL PREP PADS Use 3 pads per day - blood sugar diagnostic (FREESTYLE LITE STRIPS) test strip USE TO TEST THREE TIMES A DAY (E11.8, E11.65, Z79.4); IDDM - Lancing Device (LANCING DEVICE WITH LANCETS) [facility] Use as instructed; IDDM, E 11.65 - insulin glargine (LANTUS SOLOSTAR U-100 INSULIN) 100 unit/mL (3 mL) INJECT 38 UNITS UNDER THE SKIN EVERY EVENING - sAXagliptin (ONGLYZA) 5 mg tab Take 1 tablet by mouth once daily. - Insulin [place], Disposable, (BD ULTRA-FINE MICRO PEN NEEDLE) 32 gauge x 1/4 USE 1 PEN NEEDLE TO INJECT UNDER THE SKIN ONCE DAILY - EASY COMFORT LANCETS 30 gauge misc 1 Each twice daily. E11.8, E11.65, Z79.4 - omeprazole (PRILOSEC) 20 mg capsule TAKE 1 CAPSULE EVERY MORNING - Miscellaneous Medical Supply (BLOOD PRESSURE CUFF) misc 1 Units as directed. - albuterol HFA (PROAIR HFA) 90 mcg/actuation inhaler Inhale 2 Puffs as instructed every 4 hours as needed. - Blood-Glucose Meter (FREESTYLE LITE METER) monitoring kit Patient tests 3 times daily DX E11.65 - albuterol (PROVENTIL) 2.5 mg /3 mL (0.083 %) nebulizer solution Use 3 mL via nebulizer every 6 hours as needed. Daily as needed Problem List As Of Date 12/15/2020 Noted Resolved Mixed hyperlipidemia [E78.2] 05/20/2016 Vitamin D deficiency [E55.9] 05/20/2016 Essential hypertension [I10] 02/03/2017 Abdominal pain [R10.9] 02/03/2017 08/04/2017 Nausea [R11.0] 02/03/2017 08/04/2017 Encounter for screening colonoscopy [Z12.11] 02/03/2017 Obesity, Class II, BMI 35-39.9 [E66.9] 08/04/2017 Class 2 severe obesity due to excess calories w*02/05/2019 Type 2 diabetes mellitus with diabetic polyneur*12/06/2019 Prescriptions ordered this encounter Disp Refills Start End VALSARTAN 40 MG TABLET 90 t* 0 12/15/2020 Sig: TAKE 1 TABLET DAILY Medications Discontinued During This Encounter Prescriptions - valsartan (DIOVAN) 40 mg tablet (Discontinued) Take 1 tablet by mouth once daily. Encounter Status:Closed by OSIEL TEJEDA on 12/15/20 [facility] OBSOLETEon 12-11-2020 OBSOLETE Refill (ENDMED) ELIZA TOMAS I ([id number]) 1940 F Date Time Provider Department 12/11/20 CHERELLE ROJAS During your visit today, we recorded the following information about you: Dianelys Doran RN 12/11/2020 8:17 AM Signed RX DENIED. FRANCHESKA: 06/05/2020 Francisco Javier BUNCH: None was supposed to follow up in 3 months. Patient needs an appt scheduled then a bridge RX can be sent. Encounter closed. Allergies As of Date: 12/11/2020 Noted Allergy Reaction METFORMIN 10/16/2015 14 - Other: See Comments Comments: Abdominal pain Date Reviewed: 06/18/2020 Reviewed by: Osiel Tejeda - Fully Assessed Reason for Visit: Refill Request [94] Prescriptions as of 12/11/2020 - rosuvastatin (CRESTOR) 10 mg tablet TAKE 1 TABLET DAILY - PARoxetine (PAXIL) 20 mg tablet TAKE 1 TABLET DAILY BEFORE NOON - zafirlukast (ACCOLATE) 20 mg tablet TAKE 1 TABLET TWICE A DAY - valsartan (DIOVAN) 40 mg tablet Take 1 tablet by mouth once daily. - canagliflozin (INVOKANA) 300 mg tablet Take 1 tablet by mouth daily with breakfast. - glipiZIDE (GLUCOTROL) 5 mg tablet 1 tablet twice daily with breakfast and dinner - ALCOHOL PREP PADS Use 3 pads per day - blood sugar diagnostic (FREESTYLE LITE STRIPS) test strip USE TO TEST THREE TIMES A DAY (E11.8, E11.65, Z79.4); IDDM - Lancing Device (LANCING DEVICE WITH LANCETS) [facility] Use as instructed; IDDM, E 11.65 - insulin glargine (LANTUS SOLOSTAR U-100 INSULIN) 100 unit/mL (3 mL) INJECT 38 UNITS UNDER THE SKIN EVERY EVENING - sAXagliptin (ONGLYZA) 5 mg tab Take 1 tablet by mouth once daily. - Insulin [place], Disposable, (BD ULTRA-FINE MICRO PEN NEEDLE) 32 gauge x 1/4 USE 1 PEN NEEDLE TO INJECT UNDER THE SKIN ONCE DAILY - EASY COMFORT LANCETS 30 gauge misc 1 Each twice daily. E11.8, E11.65, Z79.4 - omeprazole (PRILOSEC) 20 mg capsule TAKE 1 CAPSULE EVERY MORNING - Miscellaneous Medical Supply (BLOOD PRESSURE CUFF) misc 1 Units as directed. - albuterol HFA (PROAIR HFA) 90 mcg/actuation inhaler Inhale 2 Puffs as instructed every 4 hours as needed. - Blood-Glucose Meter (FREESTYLE LITE METER) monitoring kit Patient tests 3 times daily DX E11.65 - albuterol (PROVENTIL) 2.5 mg /3 mL (0.083 %) nebulizer solution Use 3 mL via nebulizer every 6 hours as needed. Daily as needed Problem List As Of Date 12/11/2020 Noted Resolved Mixed hyperlipidemia [E78.2] 05/20/2016 Vitamin D deficiency [E55.9] 05/20/2016 Essential hypertension [I10] 02/03/2017 Abdominal pain [R10.9] 02/03/2017 08/04/2017 Nausea [R11.0] 02/03/2017 08/04/2017 Encounter for screening colonoscopy [Z12.11] 02/03/2017 Obesity, Class II, BMI 35-39.9 [E66.9] 08/04/2017 Class 2 severe obesity due to excess calories w*02/05/2019 Type 2 diabetes mellitus with diabetic polyneur*12/06/2019 Encounter Status:Closed by DIANELYS DORAN RN on 12/11/20 [facility] OBSOLETEon 11-12-2020 OBSOLETE Refill (AGINTMLW) ELIZA TOMAS I ([id number]) 1940 F Date Time Provider Department 11/12/20 OSIEL TEJEDA AGINTMLW During your visit today, we recorded the following information about you: Keyla Tate LPN 11/12/2020 7:29 AM Signed Last Office Visit 06/18/2020. Last Refill 08/14/2020. Last labs 08/19/2020. Pending Prescriptions Disp Refills ROSUVASTATIN 10 MG TABLET 90 tablet 3 Sig: TAKE 1 TABLET DAILY BILL: Yes Please review and advise. Keyla Tate LPN Allergies As of Date: 11/12/2020 Noted Allergy Reaction METFORMIN 10/16/2015 14 - Other: See Comments Comments: Abdominal pain Date Reviewed: 06/18/2020 Reviewed by: Osiel Tejeda - Fully Assessed Reason for Visit: Refill Request [94] Order(s):rosuvastati n (CRESTOR) 10 mg tabletTAKE 1 TABLET DAILYDisp: 90 tabletRfl: 1 Prescriptions as of 11/12/2020 - rosuvastatin (CRESTOR) 10 mg tablet TAKE 1 TABLET DAILY - PARoxetine (PAXIL) 20 mg tablet TAKE 1 TABLET DAILY BEFORE NOON - zafirlukast (ACCOLATE) 20 mg tablet TAKE 1 TABLET TWICE A DAY - valsartan (DIOVAN) 40 mg tablet Take 1 tablet by mouth once daily. - canagliflozin (INVOKANA) 300 mg tablet Take 1 tablet by mouth daily with breakfast. - glipiZIDE (GLUCOTROL) 5 mg tablet 1 tablet twice daily with breakfast and dinner - ALCOHOL PREP PADS Use 3 pads per day - blood sugar diagnostic (FREESTYLE LITE STRIPS) test strip USE TO TEST THREE TIMES A DAY (E11.8, E11.65, Z79.4); IDDM - Lancing Device (LANCING DEVICE WITH LANCETS) misc Use as instructed; IDDM, E 11.65 - insulin glargine (LANTUS SOLOSTAR U-100 INSULIN) 100 unit/mL (3 mL) INJECT 38 UNITS UNDER THE SKIN EVERY EVENING - sAXagliptin (ONGLYZA) 5 mg tab Take 1 tablet by mouth once daily. - Insulin [place], Disposable, (BD ULTRA-FINE MICRO PEN NEEDLE) 32 gauge x 1/4 USE 1 PEN NEEDLE TO INJECT UNDER THE SKIN ONCE DAILY - EASY COMFORT LANCETS 30 gauge misc 1 Each twice daily. E11.8, E11.65, Z79.4 - omeprazole (PRILOSEC) 20 mg capsule TAKE 1 CAPSULE EVERY MORNING - Miscellaneous Medical Supply (BLOOD PRESSURE CUFF) misc 1 Units as directed. - albuterol HFA (PROAIR HFA) 90 mcg/actuation inhaler Inhale 2 Puffs as instructed every 4 hours as needed. - Blood-Glucose Meter (FREESTYLE LITE METER) monitoring kit Patient tests 3 times daily DX E11.65 - albuterol (PROVENTIL) 2.5 mg /3 mL (0.083 %) nebulizer solution Use 3 mL via nebulizer every 6 hours as needed. Daily as needed Problem List As Of Date 11/12/2020 Noted Resolved Mixed hyperlipidemia [E78.2] 05/20/2016 Vitamin D deficiency [E55.9] 05/20/2016 Essential hypertension [I10] 02/03/2017 Abdominal pain [R10.9] 02/03/2017 08/04/2017 Nausea [R11.0] 02/03/2017 08/04/2017 Encounter for screening colonoscopy [Z12.11] 02/03/2017 Obesity, Class II, BMI 35-39.9 [E66.9] 08/04/2017 Class 2 severe obesity due to excess calories w*02/05/2019 Type 2 diabetes mellitus with diabetic polyneur*12/06/2019 Prescriptions ordered this encounter Disp Refills Start End ROSUVASTATIN 10 MG TABLET 90 t* 1 11/12/2020 Sig: TAKE 1 TABLET DAILY Medications Discontinued During This Encounter Prescriptions - rosuvastatin (CRESTOR) 10 mg tablet (Discontinued) TAKE 1 TABLET DAILY Encounter Status:Closed by OSIEL TEJEDA on 11/12/20 [facility] OBSOLETE Refill (ENDMED) ELIZA TOMAS I ([id number]) 1940 F Date Time Provider Department 11/12/20 CHERELLE ROJAS During your visit today, we recorded the following information about you: Elina Metz 11/12/2020 8:24 AM Signed Requester: Pharmacy Last Visit in Endocrinology: Provider name: Cherelle Rojas CNP , Date 06/05/2020 Next Scheduled Appt in Endo: Visit date not found Last Refill: 12/06/19 Number of Refills given: 0 Please, change quantity if appropriate. PSS NOTE: Patient needs scheduled appointment , Pending Prescriptions Disp Refills ONGLYZA 5 MG TABLET 30 tablet 0 Sig: TAKE 1 TABLET DAILY BILL: Yes Please review and advise. Elina Metz Elizabeth Lorenzo 11/12/2020 3:37 PM Signed Left message for patient to return call and schedule. Dianelys Doran RN 11/18/2020 8:11 AM Signed Please reach out to patient again. Thanks. Katie Campo 11/18/2020 8:45 AM Signed 2nd voicemail left to schedule follow up. Kayrn Peralta Ma 11/19/2020 10:07 AM Signed Please reach out one more time and then close. Thank you Elizabeth Zazueta Pss 11/19/2020 3:27 PM Signed Left third message for patient. Dianelys Doran RN 11/21/2020 8:08 AM Signed Patient has not responded despite several calls made to her. RX DENIED. Needs appointment. Encounter closed. Allergies As of Date: 11/12/2020 Noted Allergy Reaction METFORMIN 10/16/2015 14 - Other: See Comments Comments: Abdominal pain Date Reviewed: 06/18/2020 Reviewed by: Osiel Tejeda - Fully Assessed Reason for Visit: Refill Request [94] Prescriptions as of 11/21/2020 - rosuvastatin (CRESTOR) 10 mg tablet TAKE 1 TABLET DAILY - PARoxetine (PAXIL) 20 mg tablet TAKE 1 TABLET DAILY BEFORE NOON - zafirlukast (ACCOLATE) 20 mg tablet TAKE 1 TABLET TWICE A DAY - valsartan (DIOVAN) 40 mg tablet Take 1 tablet by mouth once daily. - canagliflozin (INVOKANA) 300 mg tablet Take 1 tablet by mouth daily with breakfast. - glipiZIDE (GLUCOTROL) 5 mg tablet 1 tablet twice daily with breakfast and dinner - ALCOHOL PREP PADS Use 3 pads per day - blood sugar diagnostic (FREESTYLE LITE STRIPS) test strip USE TO TEST THREE TIMES A DAY (E11.8, E11.65, Z79.4); IDDM - Lancing Device (LANCING DEVICE WITH LANCETS) misc Use as instructed; IDDM, E 11.65 - insulin glargine (LANTUS SOLOSTAR U-100 INSULIN) 100 unit/mL (3 mL) INJECT 38 UNITS UNDER THE SKIN EVERY EVENING - sAXagliptin (ONGLYZA) 5 mg tab Take 1 tablet by mouth once daily. - Insulin [place], Disposable, (BD ULTRA-FINE MICRO PEN NEEDLE) 32 gauge x 1/4 USE 1 PEN NEEDLE TO INJECT UNDER THE SKIN ONCE DAILY - EASY COMFORT LANCETS 30 gauge misc 1 Each twice daily. E11.8, E11.65, Z79.4 - omeprazole (PRILOSEC) 20 mg capsule TAKE 1 CAPSULE EVERY MORNING - Miscellaneous Medical Supply (BLOOD PRESSURE CUFF) misc 1 Units as directed. - albuterol HFA (PROAIR HFA) 90 mcg/actuation inhaler Inhale 2 Puffs as instructed every 4 hours as needed. - Blood-Glucose Meter (FREESTYLE LITE METER) monitoring kit Patient tests 3 times daily DX E11.65 - albuterol (PROVENTIL) 2.5 mg /3 mL (0.083 %) nebulizer solution Use 3 mL via nebulizer every 6 hours as needed. 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 Last Refill 03/24/2020. Last labs 08/19/2020. Pending Prescriptions Disp Refills PAROXETINE 20 MG TABLET 90 tablet 3 Sig: TAKE 1 TABLET DAILY BEFORE NOON BILL: Yes Please review and advise. Keyla Tate LPN Allergies As of Date: 09/17/2020 Noted Allergy Reaction METFORMIN 10/16/2015 14 - Other: See Comments Comments: Abdominal pain Date Reviewed: 06/18/2020 Reviewed by: Osiel Tejeda - Fully Assessed Reason for Visit: Refill Request [94] Order(s):PARoxetine (PAXIL) 20 mg tabletTAKE 1 TABLET DAILY BEFORE NOONDisp: 90 tabletRfl: 1 Prescriptions as of 09/17/2020 - PARoxetine (PAXIL) 20 mg tablet TAKE 1 TABLET DAILY BEFORE NOON - rosuvastatin (CRESTOR) 10 mg tablet TAKE 1 TABLET DAILY - zafirlukast (ACCOLATE) 20 mg tablet TAKE 1 TABLET TWICE A DAY - valsartan (DIOVAN) 40 mg tablet Take 1 tablet by mouth once daily. - canagliflozin (INVOKANA) 300 mg tablet Take 1 tablet by mouth daily with breakfast. - glipiZIDE (GLUCOTROL) 5 mg tablet 1 tablet twice daily with breakfast and dinner - ALCOHOL PREP PADS Use 3 pads per day - blood sugar diagnostic (FREESTYLE LITE STRIPS) test strip USE TO TEST THREE TIMES A DAY (E11.8, E11.65, Z79.4); IDDM - Lancing Device (LANCING DEVICE WITH LANCETS) [facility] Use as instructed; IDDM, E 11.65 - insulin glargine (LANTUS SOLOSTAR U-100 INSULIN) 100 unit/mL (3 mL) INJECT 38 UNITS UNDER THE SKIN EVERY EVENING - sAXagliptin (ONGLYZA) 5 mg tab Take 1 tablet by mouth once daily. - Insulin [place], Disposable, (BD ULTRA-FINE MICRO PEN NEEDLE) 32 gauge x 1/4 USE 1 PEN NEEDLE TO INJECT UNDER THE SKIN ONCE DAILY - EASY COMFORT LANCETS 30 gauge misc 1 Each twice daily. E11.8, E11.65, Z79.4 - omeprazole (PRILOSEC) 20 mg capsule TAKE 1 CAPSULE EVERY MORNING - Miscellaneous Medical Supply (BLOOD PRESSURE CUFF) misc 1 Units as directed. - albuterol HFA (PROAIR HFA) 90 mcg/actuation inhaler Inhale 2 Puffs as instructed every 4 hours as needed. - Blood-Glucose Meter (FREESTYLE LITE METER) monitoring kit Patient tests 3 times daily DX E11.65 - albuterol (PROVENTIL) 2.5 mg /3 mL (0.083 %) nebulizer solution Use 3 mL via nebulizer every 6 hours as needed. 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 Prescriptions ordered this encounter Disp Refills Start End PAROXETINE 20 MG TABLET 90 t* 1 09/17/2020 Sig: TAKE 1 TABLET DAILY BEFORE NOON Medications Discontinued During This Encounter Prescriptions - PARoxetine (PAXIL) 20 mg tablet (Discontinued) TAKE 1 TABLET DAILY BEFORE NOON Encounter Status:Closed by OSIEL TEJEDA on 09/17/20 [facility] Rula 08-20-2020 CNPN Telephone (AGINTMLW) ELIZA TOMAS I ([id number]) 1940 F Date Time Provider Department 08/20/20 OSIEL TEJEDA AGINTMLW During your visit today, we recorded the following information about you: Kelya Tate LPN 08/20/2020 2:01 PM Signed ----- Message from Osiel Tejeda MD sent at 08/20/2020 1:34 PM EDT ----- Negative hepatitis c screen Keyla Tate LPN 08/20/2020 2:03 PM Signed Unable to leave message. SUSANA Hollingsworth MA 08/25/2020 12:01 PM Signed Patient notified hepatitis c screen negative. Maribel Valverde MA Allergies As of Date: 08/20/2020 Noted Allergy Reaction METFORMIN 10/16/2015 14 - Other: See Comments Comments: Abdominal pain Date Reviewed: 06/18/2020 Reviewed by: Osiel Tejeda - Fully Assessed Reason for Visit: Results [95] Prescriptions as of 08/20/2020 Sig: ROSUVASTATIN 10 MG TABLET TAKE 1 TABLET DAILY ZAFIRLUKAST 20 MG TABLET TAKE 1 TABLET TWICE A DAY VALSARTAN 40 MG TABLET Take 1 tablet by mouth once d* CANAGLIFLOZIN 300 MG TABLET Take 1 tablet by mouth daily * PAROXETINE 20 MG TABLET TAKE 1 TABLET DAILY BEFORE NO* GLIPIZIDE 5 MG TABLET 1 tablet twice daily with duran* ALCOHOL PREP PADS Use 3 pads per day FREESTYLE LITE STRIPS USE TO TEST THREE TIMES A DAY* LANCING DEVICE Use as instructed; IDDM, E 11* LANTUS SOLOSTAR U-100 INSULIN* INJECT 38 UNITS UNDER THE SKI* SAXAGLIPTIN 5 MG TABLET Take 1 tablet by mouth once d* PEN NEEDLE, DIABETIC 32 GAUGE* USE 1 PEN NEEDLE TO INJECT UN* EASY COMFORT LANCETS 30 GAUGE 1 Each twice daily. E11.8, E* OMEPRAZOLE 20 MG CAPSULE,FLY* TAKE 1 CAPSULE EVERY MORNING MISCELLANEOUS MEDICAL SUPPLY * 1 Units as directed. ALBUTEROL SULFATE HFA 90 MCG/* Inhale 2 Puffs as instructed * BLOOD-GLUCOSE METER KIT Patient tests 3 times daily D* ALBUTEROL SULFATE 2.5 MG/3 ML* Use 3 mL via nebulizer every * Problem List As Of Date 08/20/2020 Noted Resolved Mixed hyperlipidemia [E78.2] 05/20/2016 Vitamin D deficiency [E55.9] 05/20/2016 Essential hypertension [I10] 02/03/2017 Abdominal pain [R10.9] 02/03/2017 08/04/2017 Nausea [R11.0] 02/03/2017 08/04/2017 Encounter for screening colonoscopy [Z12.11] 02/03/2017 Obesity, Class II, BMI 35-39.9 [E66.9] 08/04/2017 Class 2 severe obesity due to excess calories w*02/05/2019 Type 2 diabetes mellitus with diabetic polyneur*12/06/2019 Encounter Status:Closed by KEYLA TATE on 08/20/20 Normal [facility] ALBUMIN/CREAT RATIO RND URon 08-19-2020 Albumin Unsp time DL <= 20 mg/L (U) [Mass/Time] <12.0 Normal [facility] Comment on above: Order Comment: Speci men Type: URINE SPECIMEN Performed By: #### U ACR #### [facility] CLIA [id number] [address] [place] [address] Albumin/Creatinine (U) [Mass ratio] <15 Normal <30 [facility] Comment on above: Order Comment: Speci men Type: URINE SPECIMEN Performed By: #### U ACR #### [facility] CLIA [id number] [address] [place] [address] Creatinine (U) [Mass/Vol] 80.8 mg/dL Normal 42.2-237.9 [facility] Comment on above: Order Comment: Speci men Type: URINE SPECIMEN Performed By: #### U ACR #### [facility] CLIA [id number] [address] [place] [address] Comprehensive metabolic 2000 panelon 08-19-2020 Albumin [Mass/Vol] 4.3 g/dL Normal 3.9-4.9 [facility] Comment on above: Order Comment: Speci men Type: BLOOD SPECIMEN Performed By: #### L IPB, 37835-2, 6-3 #### [facility] CLIA [id number] [address] [place] [address] [place] ALP [Catalytic activity/Vol] 60 U/L Normal 34-123 [facility] Comment on above: Order Comment: Speci men Type: BLOOD SPECIMEN Performed By: #### L IPB, 50296-9, 6-3 #### [facility] CLIA [id number] [address] [place] [address] [place] [facility] ALT With P-5'-P [Catalytic activity/Vol] 50 U/L High 7-38 [facility] Comment on above: Order Comment: Speci men Type: BLOOD SPECIMEN Performed By: #### L IPB, 46432-4, 6-3 #### [facility] CLIA [id number] [address] [place] [address] [place] Anion gap [Moles/Vol] 11 mmol/L Normal 9-18 [facility] Comment on above: Order Comment: Speci men Type: BLOOD SPECIMEN Performed By: #### L IPB, 53347-1, 6-3 #### [facility] CLIA [id number] [address] [place] [address] [place] AST With P-5'-P [Catalytic activity/Vol] 36 U/L High 13-35 [facility] Comment on above: Order Comment: Speci men Type: BLOOD SPECIMEN Performed By: #### L IPB, 53267-1, 6-3 #### [facility] CLIA [id number] [address] [place] [address] [place] Bilirubin [Mass/Vol] 0.5 mg/dL Normal 0.2-1.3 [facility] Comment on above: Order Comment: Speci men Type: BLOOD SPECIMEN Performed By: #### L IPB, 59760-1, 6-3 #### [facility] CLIA [id number] [address] [place] [address] [place] Calcium [Mass/Vol] 10.3 mg/dL High 8.5-10.2 [facility] Comment on above: Order Comment: Speci men Type: BLOOD SPECIMEN Performed By: #### L IPB, , 3 #### [facility] CLIA [id number] [address] [place] [address] [place] Chloride [Moles/Vol] 103 mmol/L Normal 97-105 [facility] Comment on above: Order Comment: Speci men Type: BLOOD SPECIMEN Performed By: #### L IPB, , 3 #### [facility] CLIA [id number] [address] [place] [address] [place] CO2 [Moles/Vol] 25 mmol/L Normal 22-30 [facility] Comment on above: Order Comment: Speci men Type: BLOOD SPECIMEN Performed By: #### L IPB, , 63 #### [facility] CLIA [id number] [address] [place] [address] [place] Creatinine [Mass/Vol] 0.78 mg/dL Normal 0.58-0.96 [facility] Comment on above: Order Comment: Speci men Type: BLOOD SPECIMEN Performed By: #### L IPB, , 63 #### [facility] CLIA [id number] [address] [place] [address] [place] GFR/1.73 sq M.predicted among blacks MDRD (S/P/Bld) [Vol rate/Area] mL/min/{1.73_m2} Normal [facility] Comment on above: Order Comment: Speci men Type: BLOOD SPECIMEN Performed By: #### L ROCKYB, , 3015-3 #### [facility] CLIA [id number] [address] [place] [address] [place] GFR/1.73 sq M.predicted among non-blacks MDRD (S/P/Bld) [Vol rate/Area] mL/min/{1.73_m2} Normal [facility] Comment on above: Order Comment: Speci men Type: BLOOD SPECIMEN Result Comment: eGFR (Estimated GFR) Units of measure: mL/min/1.73 meters squared eGFR is derived from the reexpressed MDRD Study equation using the following parameters: serum creatinine, age, gender and race. The creatinine assay has been calibrated to be traceable to IDMS. An eGFR <60 mL/min/1.73m2 for >3 months is consistent with chronic kidney disease. Refer to KDOQI guidelines for clinical interpretation. In patients with unstable renal function, e.g. those with acute kidney injury, the eGFR may not accurately reflect actual GFR. Performed By: #### L IPB, 57044-3, 3015-3 #### [facility] CLIA [id number] [address] [place] [address] [place] Glucose [Mass/Vol] 185 mg/dL High 74-99 [facility] Comment on above: Order Comment: Speci men Type: BLOOD SPECIMEN Result Comment: The [place] Diabetes Association (ADA) provides guidance for cutoff values for fasting glucose and random glucose. The ADA defines fasting as no caloric intake for at least 8 hours. Fasting plasma glucose results between 100 to 125 mg/dL indicate increased risk for diabetes (prediabetes). Fasting plasma glucose results greater than or equal to 126 mg/dL meet the criteria for diagnosis of diabetes. In the absence of unequivocal hyperglycemia, results should be confirmed by repeat testing. In a patient with classic symptoms of hyperglycemia or hyperglycemic crisis, random plasma glucose results greater than or equal to 200 mg/dL meet the criteria for diagnosis of diabetes. Reference: Standards of Medical Care in Diabetes 2016, [place] Diabetes Association. Diabetes Care. 2016.39(Suppl 1). Performed By: #### L IPB, 80419-3, 6-3 #### [facility] CLIA [id number] [address] [place] [address] [place] Potassium [Moles/Vol] 4.5 mmol/L Normal 3.7-5.1 [facility] Comment on above: Order Comment: Speci men Type: BLOOD SPECIMEN Performed By: #### L IPB, 41040-7, 3016-3 #### [facility] CLIA [id number] [address] [place] [address] [place] Protein [Mass/Vol] 7.1 g/dL Normal 6.3-8.0 [facility] Comment on above: Order Comment: Speci men Type: BLOOD SPECIMEN Performed By: #### L IPB, 38256-0, 3016-3 #### [facility] CLIA [id number] [address] [place] [address] [place] Sodium [Moles/Vol] 139 mmol/L Normal 136-144 [facility] Comment on above: Order Comment: Speci men Type: BLOOD SPECIMEN Performed By: #### L IPB, 87240-2, 3016-3 #### [facility] CLIA [id number] [address] [place] [address] [place] Urea nitrogen [Mass/Vol] 16 mg/dL Normal 7-21 [facility] Comment on above: Order Comment: Speci men Type: BLOOD SPECIMEN Performed By: #### L IPB, 00229-9, 3016-3 #### [facility] CLIA [id number] [address] [place] [address] [place] HCV Ab Ser Qlon 08-19-2020 HCV Ab Ql (S) Negative Normal Negative [facility] Comment on above: Order Comment: Speci men Type: BLOOD SPECIMEN Performed By: #### 1 6128-1 #### [facility] CLIA [id number] [address] [place] [address] LIPID PANEL BASICon 08-20-19 21 Cholesterol [Mass/Vol] 177 mg/dL Normal <200 [facility] Comment on above: Order Comment: Speci men Type: BLOOD SPECIMEN Result Comment: <200 mg/dL, Desirable 200-239 mg/dL, Borderline high >239 mg/dL, High Performed By: #### L SARITA, 00448-0, 3015-3 #### [facility] CLIA [id number] [address] [place] [address] [facility] Cholesterol in HDL [Mass/Vol] 47 mg/dL Normal >39 [facility] Comment on above: Order Comment: Speci men Type: BLOOD SPECIMEN Result Comment: 40-5 9 mg/dL, Acceptable >59 mg/dL, High: Negative risk factor for coronary heart disease <40 mg/dL, Low: Positive risk factor for coronary heart disease Performed By: #### L SARITA, 75123-5, 3 #### [facility] CLIA [id number] [address] [place] [address] [facility] Cholesterol in LDL [Mass/Vol] 92 mg/dL Normal <100 [facility] Comment on above: Order Comment: Speci men Type: BLOOD SPECIMEN Result Comment: <100 mg/dL, Optimal 100-129 mg/dL, Near optimal/above optimal 130-159 mg/dL, Borderline high 160-189 mg/dL, High >189 mg/dL, Very high Secondary prevention optimal LDL Cholesterol levels are recommended to be < 70 mg/dL Performed By: #### L SARITA, 82697-9, 3 #### [facility] CLIA [id number] [address] [place] [address] [facility] Cholesterol in LDL/Cholesterol in HDL [Mass ratio] 1.96 {ratio} Normal <2.54 [facility] Comment on above: Order Comment: Speci men Type: BLOOD SPECIMEN Result Comment: Refe rence: 1. National Cholesterol Education Program ATP III Guideline At-A-Glance Quick Desk Reference: National Heart, Lung, and Blood [place]. National Institutes of Health. 2001: NIH Publication No. 01-3305. 2. An International Atherosclerosis Society position paper: global recommendations for the management of dyslipidemia: executive summary, Atherosclerosis. 2014: 232(2):410-413. Performed By: #### L SARITA, 68956-2, 3016-3 #### [facility] CLIA [id number] [address] [place] [address] [facility] [place] Cholesterol in VLDL [Mass/Vol] 38 mg/dL High <30 [facility] Comment on above: Order Comment: Speci men Type: BLOOD SPECIMEN Performed By: #### L IPB, 08027-3, 3016-3 #### [facility] CLIA [id number] [address] [place] [address] [place] Cholesterol non HDL [Mass/Vol] 130 mg/dL High <130 [facility] Comment on above: Order Comment: Speci men Type: BLOOD SPECIMEN Result Comment: <130 mg/dL, Optimal 130-159 mg/dL, Near optimal/above optimal 160-189 mg/dL, Borderline high 190-219 mg/dL, High >219 mg/dL, Very high Secondary prevention optimal non HDL Cholesterol levels are recommended to be <100 mg/dL Performed By: #### L IPB, 42475-0, 3015-3 #### [facility] CLIA [id number] [address] [place] [address] [facility] Cholesterol.total/Choles terol in HDL [Mass ratio] 3.77 {ratio} Normal <5.10 [facility] Comment on above: Order Comment: Speci men Type: BLOOD SPECIMEN Performed By: #### L ROCKYB, 35395-1, 6-3 #### [facility] CLIA [id number] [address] [place] [address] [facility] FASTING TIME 12 hrs Normal [facility] Comment on above: Order Comment: Speci men Type: BLOOD SPECIMEN Performed By: #### L IPB, 06293-2, 6-3 #### [facility] CLIA [id number] [address] [place] [address] [facility] Triglyceride [Mass/Vol] 190 mg/dL High <150 [facility] Comment on above: Order Comment: Speci men Type: BLOOD SPECIMEN Result Comment: <150 mg/dL, Normal 150-199 mg/dL, Borderline high 200-499 mg/dL, High >499 mg/dL, Very high Performed By: #### L IPB, 93801-4, 3016-3 #### [facility] CLIA [id number] [address] [place] [address] [facility] TSH SerPl-aCncon 08-19-2020 TSH Qn 1.740 m[IU]/L Normal 0.270-4.200 [facility] Comment on above: Order Comment: Speci men Type: BLOOD SPECIMEN Performed By: #### L IPB, 90714-1, 3016-3 #### [facility] CLIA [id number] [address] [place] [address] [facility] OBSOLETEon 08-14-2020 OBSOLETE Refill (AGINTMLW) ELIZA TOMAS I ([id number]) 1940 F Date Time Provider Department 08/14/20 LORI SIMMONS AGINTMLW During your visit today, we recorded the following information about you: Annette Xavier MA 08/14/2020 7:17 AM Signed pharmacy electronically requesting refills as follows: Last seen 06/18/20 . Last refill 05/16/20 . Pending Prescriptions Disp Refills ROSUVASTATIN 10 MG TABLET 90 tablet 1 Sig: TAKE 1 TABLET DAILY BILL: Yes Please review and advise. REGGIE Melo MD 08/14/2020 7:46 AM Signed Please remind patient that she needs to complete her blood work. Thanks. Keyla Tate LPN 08/14/2020 3:38 PM Signed Both vm boxes are full, unable to leave message. SUSANA Hollingsworth LPN 08/18/2020 12:35 PM Signed Pt aware of lab work, states she will be in on 08/19/2020 for fasting blood work. Keyla Tate LPN Allergies As of Date: 08/14/2020 Noted Allergy Reaction METFORMIN 10/16/2015 14 - Other: See Comments Comments: Abdominal pain Date Reviewed: 06/18/2020 Reviewed by: Osiel Tejeda - Fully Assessed Reason for Visit: Orders [681] Order(s):rosuvastati n (CRESTOR) 10 mg tabletTAKE 1 TABLET DAILYDisp: 90 tabletRfl: 0 Prescriptions as of 08/14/2020 Sig: ROSUVASTATIN 10 MG TABLET TAKE 1 TABLET DAILY ZAFIRLUKAST 20 MG TABLET TAKE 1 TABLET TWICE A DAY VALSARTAN 40 MG TABLET Take 1 tablet by mouth once d* CANAGLIFLOZIN 300 MG TABLET Take 1 tablet by mouth daily * PAROXETINE 20 MG TABLET TAKE 1 TABLET DAILY BEFORE NO* GLIPIZIDE 5 MG TABLET 1 tablet twice daily with duran* ALCOHOL PREP PADS Use 3 pads per day FREESTYLE LITE STRIPS USE TO TEST THREE TIMES A DAY* LANCING DEVICE Use as instructed; IDDM, E 11* LANTUS SOLOSTAR U-100 INSULIN* INJECT 38 UNITS UNDER THE SKI* SAXAGLIPTIN 5 MG TABLET Take 1 tablet by mouth once d* PEN NEEDLE, DIABETIC 32 GAUGE* USE 1 PEN NEEDLE TO INJECT UN* EASY COMFORT LANCETS 30 GAUGE 1 Each twice daily. E11.8, E* OMEPRAZOLE 20 MG CAPSULE,FLY* TAKE 1 CAPSULE EVERY MORNING MISCELLANEOUS MEDICAL SUPPLY * 1 Units as directed. ALBUTEROL SULFATE HFA 90 MCG/* Inhale 2 Puffs as instructed * BLOOD-GLUCOSE METER KIT Patient tests 3 times daily D* ALBUTEROL SULFATE 2.5 MG/3 ML* Use 3 mL via nebulizer every * Problem List As Of Date 08/14/2020 Noted Resolved Mixed hyperlipidemia [E78.2] 05/20/2016 Vitamin D deficiency [E55.9] 05/20/2016 Essential hypertension [I10] 02/03/2017 Abdominal pain [R10.9] 02/03/2017 08/04/2017 Nausea [R11.0] 02/03/2017 08/04/2017 Encounter for screening colonoscopy [Z12.11] 02/03/2017 Obesity, Class II, BMI 35-39.9 [E66.9] 08/04/2017 Class 2 severe obesity due to excess calories w*02/05/2019 Type 2 diabetes mellitus with diabetic polyneur*12/06/2019 Prescriptions ordered this encounter Disp Refills Start End ROSUVASTATIN 10 MG TABLET 90 t* 0 08/14/2020 Cmt: YOUR PATIENT HAS REQUESTED A REFILL OF THIS MEDICATION, PREVIOUSLY AUTHORIZED BY ANOTHER PRESCRIBER. Sig: TAKE 1 TABLET DAILY Medications Discontinued During This Encounter Prescriptions - rosuvastatin (CRESTOR) 10 mg tablet (Discontinued) TAKE 1 TABLET DAILY Encounter Status:Closed by OSIEL TEJEDA on 08/14/20 [facility] OBSOLETEon 07-28-2020 OBSOLETE Refill (AGINTMLW) ELIZA TOMAS I ([id number]) 1940 F Date Time Provider Department 07/28/20 OSIEL TEJEDA AGINTMLW During your visit today, we recorded the following information about you: Graciela Metcalf MA 07/29/2020 8:10 AM Signed Last OV 06/18/20 Apt 12/18/20 Labs 12/06/19 Pharmacy calls in requesting the following refill(s): Pending Prescriptions Disp Refills ZAFIRLUKAST 20 MG TABLET 180 tablet 1 Sig: TAKE 1 TABLET TWICE A DAY BILL: Yes Graciela Metcalf MA Allergies As of Date: 07/28/2020 Noted Allergy Reaction METFORMIN 10/16/2015 14 - Other: See Comments Comments: Abdominal pain Date Reviewed: 06/18/2020 Reviewed by: Osiel Tejeda - Fully Assessed Reason for Visit: Refill Request [94] Order(s):zafirlukast (ACCOLATE) 20 mg tabletTAKE 1 TABLET TWICE A DAYDisp: 180 tabletRfl: 1 Prescriptions as of 07/28/2020 Sig: ZAFIRLUKAST 20 MG TABLET TAKE 1 TABLET TWICE A DAY VALSARTAN 40 MG TABLET Take 1 tablet by mouth once d* CANAGLIFLOZIN 300 MG TABLET Take 1 tablet by mouth daily * ROSUVASTATIN 10 MG TABLET TAKE 1 TABLET DAILY PAROXETINE 20 MG TABLET TAKE 1 TABLET DAILY BEFORE NO* GLIPIZIDE 5 MG TABLET 1 tablet twice daily with duran* ALCOHOL PREP PADS Use 3 pads per day FREESTYLE LITE STRIPS USE TO TEST THREE TIMES A DAY* LANCING DEVICE Use as instructed; IDDM, E 11* LANTUS SOLOSTAR U-100 INSULIN* INJECT 38 UNITS UNDER THE SKI* SAXAGLIPTIN 5 MG TABLET Take 1 tablet by mouth once d* PEN NEEDLE, DIABETIC 32 GAUGE* USE 1 PEN NEEDLE TO INJECT UN* EASY COMFORT LANCETS 30 GAUGE 1 Each twice daily. E11.8, E* OMEPRAZOLE 20 MG CAPSULE,FLY* TAKE 1 CAPSULE EVERY MORNING MISCELLANEOUS MEDICAL SUPPLY * 1 Units as directed. 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/2019 Prescriptions ordered this encounter Disp Refills Start End ZAFIRLUKAST 20 MG TABLET 180 * 1 07/29/2020 Sig: TAKE 1 TABLET TWICE A DAY Medications Discontinued During This Encounter Prescriptions - zafirlukast (ACCOLATE) 20 mg tablet (Discontinued) TAKE 1 TABLET TWICE A DAY Encounter Status:Closed by OSIEL TEJEDA on 07/29/20 Normal [facility] Microalb/Larisa Almanza Albumin DL <= 20 mg/L (U) [Mass/Vol] mg/dL Normal [facility] Comment on above: Performed By: #### M ALCR #### [facility] [address] [place] [address] Creatinine, Urine 69.1 mg/dL Normal 42.2-237.9 [facility] Comment on above: Performed By: #### M ALCR #### [place] [address] MA/Creat Ratio see below Normal 0.0-29.9 [facility] Comment on above: Result Comment: M A/Creat ratio not calculated Adult male and female nephrotic criteria: <30 mg/g is considered normal to mildly increased 30-300 mg/g is considered moderately increased >300 mg/g is considered severely increased Reference: KDIGO. (2013). KDIGO 2012 Clinical Practice Guideline for Evaluation and Management of Chronic Kidney Disease. Official Journal of the International Society of Nephrology, 3 (1), 1-150). Performed By: #### M ALCR #### [place] [address] Hgb A1con 06-26-2019 HbA1c (Bld) [Mass fraction] 223 mg/dL Normal [facility] Comment on above: Performed By: #### H A1C #### [place] [address] HbA1c (Bld) [Mass fraction] 9.4 % High 4.0-5.6 [facility] Comment on above: Result Comment: Amer [place] Diabetes Association guidelines indicate that the patients with HgA1c in the range 5.7 ? 6.4% are at increased risk for development of diabetes, and intervention by lifestyle modification may be beneficial. HgA1c greater or equal to 6.5% is considered diagnostic of diabetes. Performed By: #### H A1C #### [place] [address] Comprehensive Panelon 2019 Albumin [Mass/Vol] 4.4 g/dL Normal 3.9-4.9 [facility] Comment on above: Performed By: #### L LP14 #### [address] [address] ALP [Catalytic activity/Vol] 56 U/L Normal 34-123 [facility] Comment on above: Performed By: #### L LP14 #### [facility] [address] [place] [address] ALT-SGPT Blood 39 U/L High 7-38 [facility] Comment on above: Performed By: #### L LP14 #### [facility] [address] [place] [address] Anion gap [Moles/Vol] 13 mmol/L Normal 9-18 [facility] Comment on above: Performed By: #### L LP14 #### [facility] [address] [place] [address] AST-SGOT Blood 29 U/L Normal 13-35 [facility] Comment on above: Performed By: #### L LP14 #### [place] [address] Bilirubin Ql (U) 0.5 mg/dL Normal 0.2-1.3 [facility] Comment on above: Performed By: #### L LP14 #### [facility] [address] [place] [address] Calcium [Mass/Vol] 10.1 mg/dL Normal 8.5-10.2 [facility] Comment on above: Performed By: #### L LP14 #### [facility] [address] [place] [address] Chloride [Moles/Vol] 103 mmol/L Normal 97-105 [facility] Comment on above: Performed By: #### L LP14 #### [facility] [address] [place] [address] CO2 Blood 23 mmol/L Normal 22-30 [facility] Comment on above: Performed By: #### L LP14 #### [facility] [address] [place] [address] Creatinine [Mass/Vol] 0.77 mg/dL Normal 0.58-0.96 [facility] Comment on above: Performed By: #### L LP14 #### [place] [address] Glucose [Mass/Vol] 162 mg/dL High 74-99 [facility] Comment on above: Result Comment: The [place] Diabetes Association (ADA) provides guidance for cutoff values for fasting glucose and random glucose. The ADA defines fasting as no caloric intake for at least 8 hours.Fasting plasma glucose results between 100 to 125 mg/dL indicate increased risk for diabetes (prediabetes). Fasting plasma glucose results greater than or equal to 126 mg/dL meet the criteria for diagnosis of diabetes. In the absence of unequivocal hyperglycemia, results should be confirmed by repeat testing. In a patient with classic symptoms of hyperglycemia or hyperglycemic crisis, random plasma glucose results greater than or equal to 200 mg/dL meet the criteria for diagnosis of diabetes. Reference: Standards of Medical Care in Diabetes 2016; [place] Diabetes Association. Diabetes Care. 2016;39(Suppl 1). Performed By: #### L LP14 #### [facility] [address] [place], [place] [address] Potassium [Moles/Vol] 4.4 mmol/L Normal 3.7-5.1 [facility] Comment on above: Performed By: #### L LP14 #### [facility] [address] [place], [place] [address] Protein [Mass/Vol] 7.5 g/dL Normal 6.3-8.0 [facility] Comment on above: Performed By: #### L LP14 #### [facility] [address] [place], [place] [address] Sodium [Moles/Vol] 139 mmol/L Normal 136-144 [facility] Comment on above: Performed By: #### L LP14 #### [facility] [address] [place], [place] [address] Urea nitrogen [Mass/Vol] 15 mg/dL Normal 7-21 [facility] Comment on above: Performed By: #### L LP14 #### [facility] [address] [place], [place] [address] Albumin [Mass/Vol] 4.4 g/dL Normal 3.9-4.9 [facility] Comment on above: Performed By: #### L LP14 #### [facility] [address] [place], [place] [address] ALP [Catalytic activity/Vol] 56 U/L Normal 34-123 [facility] Comment on above: Performed By: #### L LP14 #### [facility] [address] [place], [place] [address] ALT-SGPT Blood 38 U/L Normal 7-38 [facility] Comment on above: Performed By: #### L LP14 #### [facility] [address] [place], [place] [address] Anion gap [Moles/Vol] 11 mmol/L Normal 9-18 [facility] Comment on above: Performed By: #### L LP14 #### [facility] [address] [place], [place] [address] AST-SGOT Blood 30 U/L Normal 13-35 [facility] Comment on above: Performed By: #### L LP14 #### [facility] [address] [place] [address] Bilirubin Ql (U) 0.5 mg/dL Normal 0.2-1.3 [facility] Comment on above: Performed By: #### L LP14 #### [facility] [address] [place], [place] [address] Calcium [Mass/Vol] 10.1 mg/dL Normal 8.5-10.2 [facility] Comment on above: Performed By: #### L LP14 #### [facility] [address] [place], [place] [address] Chloride [Moles/Vol] 101 mmol/L Normal 97-105 [facility] Comment on above: Performed By: #### L LP14 #### [facility] [address] [place], [place] [address] CO2 Blood 24 mmol/L Normal 22-30 [facility] Comment on above: Performed By: #### L LP14 #### [facility] [address] [place], [place] [address] Creatinine [Mass/Vol] 0.77 mg/dL Normal 0.58-0.96 [facility] Comment on above: Performed By: #### L LP14 #### [facility] [address] [place] [address] Glucose [Mass/Vol] 162 mg/dL High 74-99 [facility] Comment on above: Result Comment: The [place] Diabetes Association (ADA) provides guidance for cutoff values for fasting glucose and random glucose. The ADA defines fasting as no caloric intake for at least 8 hours.Fasting plasma glucose results between 100 to 125 mg/dL indicate increased risk for diabetes (prediabetes). Fasting plasma glucose results greater than or equal to 126 mg/dL meet the criteria for diagnosis of diabetes. In the absence of unequivocal hyperglycemia, results should be confirmed by repeat testing. In a patient with classic symptoms of hyperglycemia or hyperglycemic crisis, random plasma glucose results greater than or equal to 200 mg/dL meet the criteria for diagnosis of diabetes. Reference: Standards of Medical Care in Diabetes 2016; [place] Diabetes Association. Diabetes Care. 2016;39(Suppl 1). Performed By: #### L LP14 #### [place] [address] Potassium [Moles/Vol] 4.4 mmol/L Normal 3.7-5.1 [facility] Comment on above: Performed By: #### L LP14 #### [place] [address] Protein [Mass/Vol] 7.6 g/dL Normal 6.3-8.0 [facility] Comment on above: Performed By: #### L LP14 #### [place] [address] Sodium [Moles/Vol] 136 mmol/L Normal 136-144 [facility] Comment on above: Performed By: #### L LP14 #### [place] [address] Urea nitrogen [Mass/Vol] 15 mg/dL Normal 7-21 [facility] Comment on above: Performed By: #### L LP14 #### [place] [address] Hemogram/Diffon 06-25-2019 Abs. Baso 0.02 thou/cmm Normal 0.00-0.08 [facility] Comment on above: Performed By: #### L CBCD #### [place] [address] Abs. Woodruff 0.39 thou/cmm Normal 0.20-1.00 [facility] Comment on above: Performed By: #### L CBCD #### [facility] [address] [place], [place] [address] Abs. Neut (ANC) 1.90 thou/cmm Low 3.00-5.67 [facility] Comment on above: Performed By: #### L CBCD #### [address] [address] Basophils/100 WBC (Bld) 0.6 % Normal [facility] Comment on above: Performed By: #### L CBCD #### [address] [address] Eosinophils (Bld) [#/Vol] 0.08 thou/cmm Normal 0.00-0.41 [facility] Comment on above: Performed By: #### L CBCD #### [address] [address] Eosinophils/100 WBC (Bld) 2.5 % Normal [facility] Comment on above: Performed By: #### L CBCD #### [address] [address] Erythrocyte distribution width (RBC) [Ratio] 13.6 % Normal 11.5-15.9 [facility] Comment on above: Performed By: #### L CBCD #### [address] [address] Hematocrit (Bld) [Volume fraction] 42.5 % Normal 37.0-47.0 [facility] Comment on above: Performed By: #### L CBCD #### [address] [address] Hemoglobin (Bld) [Mass/Vol] 14.0 g/dL Normal 12.0-16.0 [facility] Comment on above: Performed By: #### L CBCD #### [address] [address] Lymphocytes (Bld) [#/Vol] 0.81 thou/cmm Low 1.50-3.65 [facility] Comment on above: Performed By: #### L CBCD #### [facility] [address] [place], [place] [address] Lymphocytes/100 WBC (Bld) 25.3 % Normal [facility] Comment on above: Performed By: #### L CBCD #### [facility] [address] [place], [place] [address] MCH (RBC) [Entitic mass] 29.6 pg Normal 27.0-31.0 [facility] Comment on above: Performed By: #### L CBCD #### [facility] [address] [place], [place] [address] MCHC (RBC) [Mass/Vol] 32.9 % Normal 32.0-36.0 [facility] Comment on above: Performed By: #### L CBCD #### [facility] [address] [place], [place] [address] MCV (RBC) [Entitic vol] 89.9 fL Normal 81.0-99.0 [facility] Comment on above: Performed By: #### L CBCD #### [facility] [address] [place], [place] [address] Monocytes/100 WBC (Bld) 12.3 % Normal [facility] Comment on above: Performed By: #### L CBCD #### [facility] [address] [place] [address] Platelet mean volume (Bld) [Entitic vol] 11.6 fL High 7.1-10.5 [facility] Comment on above: Performed By: #### L CBCD #### [facility] [address] [place], [place] [address] Platelets (Bld) [#/Vol] 81 thou/cmm Low 150-400 [facility] Comment on above: Performed By: #### L CBCD #### [facility] [address] [place], [place] [address] RBC (Bld) [#/Vol] 4.73 mil/cmm Normal 4.20-5.40 [facility] Comment on above: Performed By: #### L CBCD #### [facility] [address] [place] [address] Seg Neutrophil 59.3 % Normal [facility] Comment on above: Performed By: #### L CBCD #### [facility] [address] [place] [address] WBC (Bld) [#/Vol] 3.2 thou/cmm Low 4.8-10.5 [facility] Comment on above: Performed By: #### L CBCD #### [facility] [address] [place] [address] [facility] Normal [facility] Comment on above: Performed By: #### L LPF #### [facility] [address] [place] [address] Cholesterol [Mass/Vol] 148 mg/dL Normal 0-199 [facility] Comment on above: Result Comment: Tota l Cholesterol < 200 mg/dL, Desirable Total Cholesterol 200 to 239 mg/dL, Borderline high Total Cholesterol > 239 mg/dL, High Performed By: #### L LPF #### [facility] [address] [place] [address] Cholesterol in HDL [Mass/Vol] 50 mg/dL Normal [facility] Comment on above: Result Comment: Refe rence Range: HDL Cholesterol 40- 59 mg/dL, Acceptable HDL Cholesterol >59 mg/dL, High; Negative risk factor for coronary heart disease HDL Cholesterol <40 mg/dL, Low; Positive risk factor for coronary heart disease Performed By: #### L LPF #### [facility] [address] [place] [address] Cholesterol in LDL [Mass/Vol] 58 mg/dL Normal 0-99 [facility] Comment on above: Result Comment: LDL Cholesterol < 100 mg/dL, Optimal LDL Cholesterol 100 to 129 mg/dL, Near optimal/above optimal LDL Cholesterol 130 to 159 mg/dL, Borderline high LDL Cholesterol 160 to 189 mg/dL, High LDL Cholesterol > 189 mg/dL, Very high Secondary prevention optimal LDL Cholesterol levels are recommended to be < 70 mg/dL Performed By: #### L LPF #### [place] [address] Cholesterol in LDL/Cholesterol in HDL [Mass ratio] 1.16 Normal 0.00-2.53 [facility] Comment on above: Performed By: #### L LPF #### [place] [address] Cholesterol.total/Choles terol in HDL [Mass ratio] 2.96 {ratio} Normal 0.00-5.09 [facility] Comment on above: Performed By: #### L LPF #### [place] [address] Non-HDL Cholesterol 98 mg/dL Normal 0-129 [facility] Comment on above: Result Comment: Non HDL Cholesterol < 130 mg/dL, Optimal Non HDL Cholesterol 130 to 159 mg/dL, Near optimal/above optimal Non HDL Cholesterol 160 to 189 mg/dL, Borderline high Non HDL Cholesterol 190 to 219 mg/dL, High Non HDL Cholesterol > 219 mg/dL, Very high Secondary prevention optimal non HDL Cholesterol levels are recommended to be < 100 mg/dL Performed By: #### L LPF #### [place] [address] Triglyceride Blood 198 mg/dL High 0-149 [facility] Comment on above: Result Comment: Trig lycerides < 150 mg/dL, Normal Triglycerides 150 to 199 mg/dL, Borderline high Triglycerides 200 to 499 mg/dL, High Triglycerides > 499 mg/dL, Very high Performed By: #### L LPF #### [place] [address] VLDL Cholesterol 40 mg/dL High 0-29 [facility] Comment on above: Performed By: #### L LPF #### [place] [address] MDRD eGFRon 06-25-2019 GFR/1.73 sq M predicted among non-blacks MDRD (S/P/Bld) [Vol rate/Area] mL/min/{1.73_m2} Normal >60mL/min/1. 73m2 [facility] Comment on above: Result Comment: If t he patient is , multiply the result by 1.210. Performed By: #### L GFR #### [place] [address] GFR/1.73 sq M predicted among non-blacks MDRD (S/P/Bld) [Vol rate/Area] mL/min/{1.73_m2} Normal >60mL/min/1. 73m2 [facility] Comment on above: Result Comment: If t he patient is , multiply the result by 1.210. Performed By: #### L GFR #### [facility] [address] [place], [place] [address] Encounters Encounter Date Encounter Type Care Provider Facility Start: 01-15-2025 ambulatory [facility] Facility:[facility] Start: 01-09-2025 End: 01-09-2025 ambulatory [facility] Facility:[facility] Start: 12-05-2024 End: 12-05-2024 ambulatory [facility] ARCHITECTURAL SUPERINTENDENT-C Work Phone: -[facility] Start: 12-05-2024 End: 12-05-2024 Patient encounter procedure Nicole Murphy ARCHITECTURAL SUPERINTENDENT-C [facility] [place] Work Phone: Start: 12-05-2024 End: 12-05-2024 ambulatory [facility] Facility:[facility] Start: 06-17-2021 Telephone encounter Osiel beal MD Work Phone: [facility] Comment on above: ACO- A1C outreach (F irst attempt) Start: 06-15-2021 Refill Osiel wetzel MD Work Phone: [facility] Comment on above: Refill Request Start: 06-11-2021 Refill Osiel wetzel MD Work Phone: [facility] Comment on above: Refill Request Procedures Date Procedure Procedure Detail Performing Clinician Start: 06-18-2020 Adult depression screening assessment Osiel Tejeda MD Work Phone: Plan of Treatment Date Care Activity Detail Author Start: 08-05-2027 Urine microalbumin profile DTA P,TDAP,TD (2 - Td or Tdap) [facility] Start: 10-29-2021 Influenza vaccination INFLUENZA (Sea son Ended) [facility] Start: 08-19-2021 Hepatitis B screening URINE AL BUMIN:CREATININE RATIO [facility] Start: 08-19-2021 Hepatitis B surface antibody level LDL CHOLESTEROL [facility] Start: 06-18-2021 Adult depression scr eening assessment DEPRESSION SCREENING [facility] Start: 06-18-2021 ANNUAL PCP TEAM EXPLOSIVE ORDNANCE SPECIALIST [place] DISEASE VISIT ANNUAL PCP TEAM CHRONIC DISEASE VISIT [facility] Start: 06-18-2021 BP CONTROLLED (<130/80) BP CONTROLLE D (<130/80) [facility] Start: 06-18-2021 SHINGRIX VACCINE (2 of 3) TAVARES GRIX VACCINE (2 of 3) [facility] Comment on above: Postponed from 05/15 (Declined at this time) Start: 06-18-2021 SPIROMETRY SPIROMETRY [facility] Comment on above: Postponed from 05/26 (Declined at this time) Start: 02-28-2021 ADVANCE DIRECTIVE DISCUSSION ADVANCE DIRECTIVE DISCUSSION [facility] Start: 09-04-2020 Hemoglobin A1c/Hemoglobin.total in Blood HBA1C [facility] Start: 08-06-2020 3 comp foot exam completed DIABETIC FOOT EXAM [facility] Start: 08-17-2018 FECAL OCCULT BLOOD FECAL OCCULT BLOO D [facility] Start: 08-16-2018 Hepatitis C antibody , confirmatory test DILATED RETINAL EXAM [facility] Start: 05-27-1945 COVID-19 VACCINE (1) COVID-19 VACCIN E (1) [facility] Immunizations Immunization Date Immunization Notes Care Provider Fa sunita 08-04-2017 pneumococcal conjuga te vaccine, 13 valent Osiel Tejeda MD Work Phone: [facility] 03-20-2013 zoster vaccine, live Osiel Tejeda MD Work Phone: [facility] 02-29-2008 pneumococcal polysaccharide vaccine, 23 valent Osiel Tejeda MD Work Phone: [facility] Payers Date Payer Category Payer Medicare [id number] 2024 Self-pay 2024 Unknown [id number] 2018 Medicare MEDICARE MEDICAR E A AND B [id number] 2018-Present [phone] [place] [address] Medicare [id number] 2018 Unknown [employer]AL OOS [id number] 2018-Present [phone] [id number] [place] [address] Indemnity [id number] Unknown [id number] Unknown [id number] Unknown [id number] Social History Date Type Detail Facility [facility] End: 02-28-1993 History of tobacco use Current smoker [facility] Start: 06-18-2020 Alcohol intake Current non-dr ring striker of alcohol (finding) [facility] Start: 1940 Sex Assigned At Not on file [facility] Tobacco smoking stat [facility] Unknown if ever smoked [facility] Work Phone: Sex Female [facility] Start: 1940 Sex Assigned At Female W [facility] Medical Equipment Procedure Code Equipment Code Equipment Origin al Text Equipment Identifier Dates Start: 03-14-2019 Comment on above: USE TO TEST THREE TI MES A DAY (E11.8, E11.65, Z79.4); IDDM 1 Each twice daily. E11.8, E11.65, Z79.4 USE 1 PEN NEEDLE TO INJECT UNDER THE SKIN ONCE DAILY Use as instructed; I DDM, E 11.65 Note 06-18-2021 Telephone Encounter - Letty Dale MA - 06/18/2021 8:59 AM EDT Note Date & Type Note Facility 06-18-2021 Miscellaneous Notes Patient is due for appointment. Letty Dale MA documented in this encounter [facility] Note 06-17-2021 Telephone Encounter - Keyla Tate LPN - 06/17/2021 10:38 AM EDT Note Date & Type Note Facility 06-17-2021 Miscellaneous Notes Attempted to reach pt via telephone to assist with establishment of a new PCP in our office. Also attempting to reach out for an ACO- A1C. Unable to reach patient via telephone, left voicemail requesting patient to call the office for the above. Keyla Tate LPN documented in this encounter [facility] Note 06-17-2021 Telephone Encounter - Graciela Metcalf MA - 06/17/2021 8:17 AM EDTTelephone Encounter - Graciela Metcalf MA - 06/16/2021 8:45 AM EDTTelephone Encounter - Letty Dale MA - 06/11/2021 8:15 AM EDT Note Date & Type Note Facility 06-17-2021 Miscellaneous Notes Called pt left for her to contact the office with who she decides to choice as a provider. I did send pt a letter for her to contact the office Graciela Metcalf MA Called pt left for her to contact the office regarding her refill Graciela Metcalf MA Patient needs to contact office to schedule has been informed multiple times. Letty Dale MA documented in this encounter [facility] History of Past illness Narrative 02-03-2017 Note Date & Type Note Facility 02-03-2017 History of Past i llness Narrative Problem Noted Date Resolved Date Abdominal pain 02/03/2017 08/04/2017 Nausea 02/03/2017 08/04/2017 documented as of this encounter (statuses as of 06/17/2021) [facility] History of Past illness Narrative 02-03-2017 Note Date & Type Note Facility 02-03-2017 History of Past i llness Narrative Problem Noted Date Resolved Date Abdominal pain 02/03/2017 08/04/2017 Nausea 02/03/2017 08/04/2017 documented as of this encounter (statuses as of 06/18/2021) [facility] History of Past illness Narrative 02-03-2017 Note Date & Type Note Facility 02-03-2017 History of Past i llness Narrative Problem Noted Date Resolved Date Abdominal pain 02/03/2017 08/04/2017 Nausea 02/03/2017 08/04/2017 documented as of this encounter (statuses as of 06/18/2021) [facility] Evaluation note Note Date & Type Note Facility Evaluation note Diagnosis Essential hypertension Unspecified essential hypertension documented in this encounter [facility] Evaluation note Note Date & Type Note Facility Evaluation note No assessment information availa ble [facility] Work Phone: Reason for referral (narrative) Note Date & Type Note Facility Reason for referral (narrative) No reason for referral information available [facility] Work Phone: Summary Purpose Family History No Family History Records FoundNo Family History Records FoundNo Family History Records FoundNo Family History Records Found Advance Directives No Advanced Directives Records FoundNo Advanced Directives Records FoundNo Advanced Directives Records FoundNo Advanced Directives Records Found Additional Source Comments INFORMATION SOURCE (unrecogn ized section and content) DATE CREATED AUTHOR 08/07/2019 [facility] DATE CREATED AUTHOR AUTHOR'S ORGANIZ ATION 08/24/2020 [facility] DATE CREATED AUTHOR AUTHOR'S ORGANIZ ATION 06/18/2021 [facility] DATE CREATED AUTHOR AUTHOR'S ORGANIZ ATION 01/10/2025 [facility] Source Comments (unrecognize d section and content) In the event this informatio n is protected by the Federal Confidentiality of Alcohol and Drug Abuse Patient Records regulations: The Federal rules restrict any use of the information to criminally investigate or prosecute any alcohol or drug abuse patient.[facility] the event this information is protected by the Federal Confidentiality of Alcohol and Drug Abuse Patient Records regulations: The Federal rules restrict any use of the information to criminally investigate or prosecute any alcohol or drug abuse patient.[facility] the event this information is protected by the Federal Confidentiality of Alcohol and Drug Abuse Patient Records regulations: The Federal rules restrict any use of the information to criminally investigate or prosecute any alcohol or drug abuse patient.[facility] Reason for Visit (unrecogniz ed section and content) Reason Comments ACO- A1C outreach First attempt Reason Comments Refill Request Care Teams (unrecognized sec tion and content) It Quality Assurance Analyst Relationship Specialty Start Date End Date Osiel Tejeda MD [address] [place], [place] [phone] PCP - General Internal Medicine 04/12/17 It Quality Assurance Analyst Relationship Specialty Start Date End Date Osiel Tejeda MD [address] [place], [place] [phone] PCP - General Internal Medicine 04/12/17 Team Status: Active Member Role/Relationship Status Dates RAJAN Gerard Primary care physician Active Team Status: Inactive Member Role/Relationship Status Dates RAJAN Gerard Primary care physician Active Start: December 05, 2024 End: December 05, 2024 RAJAN Gerard Attending physician Active S tart: December 05, 2024 End: December 05, 2024 RAJAN Gerard Referring Provider Active St art: December 05, 2024 End: December 05, 2024 Goals (unrecognized section and content) Goals may be documented in a n alternate section FOR RECORDS PERTAINING TO PATIENTS WHO ARE OR HAVE BEEN ENROLLED IN A CHEMICAL DEPENDENCY/SUBSTANCEABUSE PROGRAM, SOME INFORMATION MAY BE OMITTED. This clinical summary was aggregated from multiple sources. Caution should be exercised in using it in the provision of clinical care. This summary normalizes information from multiple sources, and as a consequence, information in this document may materially change the coding, format and clinical context of patient data. In addition, data may be omitted in some cases. CLINICAL DECISIONS SHOULD BE BASED ON THE PRIMARY CLINICAL RECORDS. [facility] [employer] provides no warranty or guarantee of the accuracy or completeness of information in this document.
[2025-01-15] MEDS: Lactated Ringers 1,000 ML 15 ML IV (07:14)
[2025-01-15 07:23] LABS: Hematocrit 35.0 % (37-47); Hemoglobin 11.8 g/dL (12.0-15.0); Mean Corp Hgb Conc 33.7 g/dL (32-36); Mean Corpuscular Volume 90.2 fL (81-99); Mean Platelet Vol. 10.8 fl (6.2-12.0); POSITIVE COUNT YES; Platelet Count 55 K/mm3 (150-450); RBC Distribution Width CV 13.9 % (11.6-14.6); RBC Distribution Width SD 45.0 fl (35.1-43.9); Red Blood Count 3.88 M/mm3 (4.2-5.4); White Blood Count 2.6 K/mm3 (4.4-11.0)
--- NOTE | 2025-01-15 07:28 | PCM.HP.STD ---
HPI - General General Date of Admission: 01/15/25 Date of Service: 01/15/25 Chief Complaint: Positive Cologuard test HPI Narrative ELIZA TOMAS, is a 84 F who presents for colonoscopy as a result of a positive Cologuard test. She also has low platelets. We discussed risks and benefits of proceeding and she wishes to proceed. [facility] Medical History (Updated 01/14/25 @ 08:36 by Kathie Alberto) Wears dentures Wears glasses Post-menopausal Cancer Diabetes Bladder disease Former smoker History of echocardiogram Abdominal pain Positive colorectal cancer screening using Cologuard test Home Medications ?Medication ?Instructions ?Recorded ?Last Taken ?Type cholecalciferol (vitamin D3) 25 25 mcg PO QDAY 01/09/25 Unknown History mcg (1,000 unit) capsule cinnamon bark 500 mg capsule 500 mg PO QDAY 01/09/25 Unknown History (Cinnamon) glipizide 5 mg tablet 5 mg PO QDAY 01/09/25 Unknown History potassium chloride 10 mEq 10 meq PO QDAY 01/09/25 Unknown History capsule,extended release Allergy/AdvReac Type Severity Reaction Status Date / Time metformin Allergy Mild Nausea Verified 01/15/25 07:09 Family History (Updated 01/09/25 @ 09:13 by Deb Wan LPN) Aunt Breast cancer Surgical History (Updated 01/14/25 @ 08:36 by Kathie Alberto) History of bilateral cataract extraction Hx of right mastectomy H/O: hysterectomy Social History (Updated 01/09/25 @ 09:13 by Deb Wan LPN) Smoking Status: Former smoker alcohol intake: never substance use type: does not use Vital Signs Vital Signs Vital Signs: 01/15/25 07:11 01/15/25 07:12 Temperature 97.7 F L Temperature Source Temporal Pulse Rate 88 Respiratory Rate 16 Respiratory Pattern Normal Blood Pressure 130/65 H Blood Pressure Mean 86 Blood Pressure Source Monitor Blood Pressure Position Semi-Fowlers Blood Pressure Location Left Arm Pulse Ox 98 Oxygen Delivery Method Room Air Weight Weight: 187 lb 6.287 oz Body Mass Index (BMI) 30.2 Results Lab / Micro Data 01/15/25 07:10 Labs: Laboratory Results - last 24 hr 01/15/25 07:10: WBC 2.6 L, RBC 3.88 L, Hgb 11.8 L, Hct 35.0 L, MCV 90.2, MCH 30.4, MCHC 33.7, RDW Std Deviation 45.0 H, RDW Coeff of Tiara 13.9, Plt Count 55 L, MPV 10.8 Assessment & Plan Assessment/Plan (1) Positive colorectal cancer screening using Cologuard test: PLAN: Plan Colonoscopy planned for today
--- NOTE | 2025-01-15 07:30 | COLBX_PTH ---
PATIENT: ELIZA TOMAS I LOC: [facility] U#:[id number] AGE/SX: 84/F ROOM: RE01/15/[address]: Dr. Rome Gibson MD : 1940 BED: DIS: 01/15/2025 SPEC #: [id number] RECD: 01/15/25 09:59 STATUS: JAZZY REIrais #: [id number] DEMARCUS: 01/15/25 07:[address]: Rome Gibson DEPT: SURGICAL PATHOLOGY RECD BY: Lew Dunbar ENTERED: 01/15/25 11:49 SP TYPE: COLON BX OTHR DR: Nicole Arrington, VISCOSITY WORKER-C Tissues: A - Ascending colon B - Sigmoid colon biopsy C - Rectum, NOS Procedures: Surgery Specimen Level IV HEADER OPERATION: Colonoscopy with polypectomy PRE-OP DIAGNOSIS: Positive colorectal cancer screening using Cologuard test TISSUE SUBMITTED: A- Ascending colon polyp, B- Sigmoid colon polyp x2, C- Rectal polyp x2 MICROSCOPIC DIAGNOSIS A. Ascending colon, polyp, biopsy: * Colonic mucosa with dilated crypts and features of inflammatory polyp B. Sigmoid colon, polyp, biopsy: * Tubular adenoma C . Rectum, polyp, biopsy: * Hyperplastic polyp MICROSCOPIC DESCRIPTION Slides are reviewed. GROSS DESCRIPTION A. Received in fixative is one container labeled with the patient's name and designated Ascending colon polyp. The specimen consists of one irregular fragment of vargas tissue that measures 0.4 cm. The specimen is totally submitted in one cassette. B. Received in fixative is one container labeled with the patient's name and designated Sigmoid colon polyp x2. The specimen consists of two irregular fragments of vargas tissue, each measuring 0.3 cm. The specimen is totally submitted in one cassette. C. Received in fixative is one container labeled with the patient's name and designated Rectal polyp x2. The specimen consists of two irregular fragments of vargas tissue, each measuring 0.3 cm. The specimen is totally submitted in one cassette. LA 01/15/2025 CPT:67584t5
--- NOTE | 2025-01-15 07:40 | PCM.PRE.AN2 ---
ASA Classification* ASA Classification ASA Classification: 3 Assessment & Plan Anesthesia* Anesthesia Assessment Anesthesia Assessment: Discussed sedation and/or anesthesia options, risks, benefits, and alternatives with patient/parents/legal guardian/POA. Questions invited. The patient/parents/legal guardian/POA seems to understand and agrees to proceed with anesthesia plan. Reviewed the physical assessment, medical history, allergy history and patient home medications list prior to surgery/procedure/anesthetic and documented any changes. Performed airway and anesthesia risk assessments. Anesthesia Type Anesthesia Type: MAC History Source History Obtained from:: Patient and Chart Anesthesia Focused Assessment* Temperature: 97.7 F Pulse Rate: 88 Blood Pressure: 130/65 Respiratory Rate: 16 Pulse Ox: 98 Oxygen Delivery Method: Room Air Airway Assessment Mouth opens: >3 cm Mallampati Score: II Teeth Condition: Dentures (Edentulous) Neck Range of motion (ROM): Limited ROM Comment: Platelets 55,000 today Labs Anesthesia Preop lab: CBC WBC, (4.4-11.0) 2.6 K/mm3 L Today, 07:10 RBC, (4.2-5.4) 3.88 M/mm3 L Today, 07:10 Hgb, (12.0-15.0) 11.8 g/dL L Today, 07:10 Hct, (37-47) 35.0 % L Today, 07:10 Plt Count, (150-450) 55 K/mm3 L Today, 07:10 CHEMISTRY Potassium, (3.3-5.1) 4.3 mmol/L 12/05/24, 11:19 Sodium, (133-145) 139 mmol/L 12/05/24, 11:19 BUN, (4-19) 20 mg/dL H 12/05/24, 11:19 Creatinine, (0.70-1.20) 0.67 mg/dL L 12/05/24, 11:19 Glucose, (70-99) 136 mg/dL H 12/05/24, 11:19 POC Glucose, (74-106) 108 mg/dL H Today, 07:18 COAG Pre-Assessment Diagnosis/Proposed Procedure Planned Operative Procedure(s): COLONOSCOPY Anesthesia History 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 When Was Last Pacemaker Check QUESTION #4 FULL TEXT: You/Your Family Experience fever (hyperthermia) with Anesthesia Last Oral Intake Last Oral intake: Last Oral Intake NPO since 00:00 01/15/25 07:11 Meds taken in AM with sips of No 01/15/25 07:11 water? Meds patient instructed to take am of surgery PONV PONV - alum plant supervisor: PONV - alum plant supervisor Female Yes 01/14/25 08:29 HX of Motion Sickness No 01/14/25 08:29 HX of N/V After Surgery No 01/14/25 08:29 Non-Smoker Yes 01/14/25 08:29 Duration of Surgery greater No 01/14/25 08:29 than 60 minutes Number of Risk Factors 2 01/14/25 08:29 PONV Score Moderate Risk 01/14/25 08:29 Height & Weight Height & Weight: Anesthesia: Height & Weight Height 5 ft 6 in 01/15/25 07:11 Weight: 85 kg 01/15/25 07:11 Body Mass Index (BMI) 30.2 01/15/25 07:11 Respiratory Assessment Respiratory Assessment - alum plant supervisor: Respiratory Tract Infection Hx - alum plant supervisor Hx Respiratory Tract Infection No 01/14/25 08:29 STOP Sleep Apnea STOP Sleep Apnea - alum plant supervisor: STOP Sleep Apnea - alum plant supervisor Hx Hypertension No 01/14/25 08:29 Hx Sleep Apnea No 01/14/25 08:29 CPAP BIPAP Do you snore loudly (louder No 01/14/25 08:29 than talking or can be heard Do you often feel tired/ No 01/14/25 08:29 fatigued/ sleepy during daytime? Has anyone observed you stop No 01/14/25 08:29 breathing during sleep? STOP Results Negative 01/14/25 08:29 QUESTION #5 FULL TEXT : Do you snore loudly (louder than talking or can be heard through closed doors)? 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 Specify any problems Hx of Preganancy in last 3 No 01/14/25 08:29 Months Nurse Filling Out Transfusion [facility] 01/14/25 08:29 & Questions: Date: 01/14/25 01/14/25 08:29 Time: 08:37 01/14/25 08:29 Patient unable to answer at this time (ie. confused, unrespo /Reproduction History /Reproductive History - alum plant supervisor: /Reproductive Hx- alum plant supervisor Hx Now No 01/14/25 08:29 Gestational Age (in weeks): EDC: Hx Hx Para Hx Section SAB No 01/14/25 08:29 Does the father of the baby or his family experience fever w Father of the baby Malignant Hypertension history comment Active Medications Active Medications: Current Medications Generic Name Dose Route Start Last Admin Trade Name Freq PRN Reason Stop Dose Admin Lactated Ringer's 1,000 mls @ 15 mls/hr 01/15/25 06:45 01/15/25 07:14 IV 15 mls/hr .Q48H ROGERIO Administration PFSH Medical History Wears dentures Wears glasses Post-menopausal Cancer Diabetes Bladder disease Former smoker History of echocardiogram Abdominal pain Positive colorectal cancer screening using Cologuard test Home Medications ?Medication ?Instructions ?Recorded ?Last Taken ?Type cholecalciferol (vitamin D3) 25 25 mcg PO QDAY 01/09/25 Unknown History mcg (1,000 unit) capsule cinnamon bark 500 mg capsule 500 mg PO QDAY 01/09/25 Unknown History (Cinnamon) glipizide 5 mg tablet 5 mg PO QDAY 01/09/25 Unknown History potassium chloride 10 mEq 10 meq PO QDAY 01/09/25 Unknown History capsule,extended release Allergy/AdvReac Type Severity Reaction Status Date / Time metformin Allergy Mild Nausea Verified 01/15/25 07:09 Family History Aunt Breast cancer Surgical History History of bilateral cataract extraction Hx of right mastectomy H/O: hysterectomy Social History Smoking Status: Former smoker alcohol intake: never substance use type: does not use Review of Systems (Anesthesia) ROS Narrative System reviewed and no additional complaints, except as documented.
--- NOTE | 2025-01-15 08:36 | OP.COLON_ITS ---
Patient Name: Melinda Amezquita Procedure Date: 01/15/2025 7:48 AM Date of : 1940 Age: 84 Procedure: Colonoscopy Indications: Positive Cologuard test Providers: Rome Gibson MD Referring MD: Raffy Gerard Medicines: Monitored Anesthesia Care Patient Profile: Refer to note in patient chart for documentation of history and physical. Last Colonoscopy: none. The patient's first colonoscopy is today. Complications: No immediate complications. Estimated blood loss: Minimal. Procedure: Pre-Anesthesia Assessment: - Prior to the procedure, a History and Physical was performed, and patient medications and allergies were reviewed. The patient's tolerance of previous anesthesia was also reviewed. The risks and benefits of the procedure and the sedation options and risks were discussed with the patient. All questions were answered, and informed consent was obtained. Prior Anticoagulants: The patient has taken no anticoagulant or antiplatelet agents. ASA Grade Assessment: III - A patient with severe systemic disease. After reviewing the risks and benefits, the patient was deemed in satisfactory condition to undergo the procedure. After I obtained informed consent, the scope was passed under direct vision. Throughout the procedure, the patient's blood pressure, pulse, and oxygen saturations were monitored continuously. The colonoscope was introduced through the anus and advanced to the cecum, identified by appendiceal orifice and ileocecal valve. The ileocecal valve, appendiceal orifice, and rectum were photographed. The entire colon was well visualized. The colonoscopy was performed without difficulty. The patient tolerated the procedure well. The quality of the bowel preparation was adequate. Moderate Sedation: See the other procedure note for documentation of moderate sedation with intraservice time. Scope In: 7:57:24 AM Scope Withdrawal Time 0 hours 21 minutes 57 seconds Scope Out: 8:28:50 AM Total Procedure Duration Time 0 hours 31 minutes 26 seconds Findings: The perianal and digital rectal examinations were normal. Non-bleeding internal hemorrhoids were found during endoscopy. The hemorrhoids were severe and large. A 4 mm polyp was found in the ascending colon. The polyp was semi-sessile. The polyp was removed with a hot snare. Resection and retrieval were complete. Verification of patient identification for the specimen was done by the nurse using the patient's name, date and medical record number. Estimated blood loss was minimal. Two semi-sessile polyps were found in the sigmoid colon. The polyps were 4 to 5 mm in size. These polyps were removed with a hot snare. Resection and retrieval were complete. Verification of patient identification for the specimen was done by the nurse using the patient's name, date and medical record number. Estimated blood loss was minimal. Two semi-sessile polyps were found in the rectum. The polyps were 4 to 5 mm in size. These polyps were removed with a hot snare. Resection and retrieval were complete. Verification of patient identification for the specimen was done by the nurse using the patient's name, date and medical record number. Estimated blood loss was minimal. The exam was otherwise without abnormality. Impression: - Non-bleeding internal hemorrhoids. - One 4 mm polyp in the ascending colon, removed with a hot snare. Resected and retrieved. - Two 4 to 5 mm polyps in the sigmoid colon, removed with a hot snare. Resected and retrieved. - Two 4 to 5 mm polyps in the rectum, removed with a hot snare. Resected and retrieved. - The examination was otherwise normal. Recommendation: - Discharge patient to home (ambulatory). - High fiber diet. - Await pathology results. - Repeat colonoscopy in 5 years for surveillance. - Return to my office PRN. - Continue present medications. Procedure Code(s): --- Professional --- 07786, Colonoscopy, flexible; with removal of tumor(s), polyp(s), or other lesion(s) by snare technique Diagnosis Code(s): --- Professional --- K64.8, Other hemorrhoids D12.2, Benign neoplasm of ascending colon D12.5, Benign neoplasm of sigmoid colon R19.5, Other fecal abnormalities D12.8, Benign neoplasm of rectum CPT copyright 2021 [employer]. All rights reserved. The codes documented in this report are preliminary and upon geology teacher review may be revised to meet current compliance requirements. Rome Gibson MD 01/15/2025 8:36:06 AM This report has been signed electronically. Number of Addenda: 0 Note Initiated On: 01/15/2025 7:48 AM
--- NOTE | 2025-01-15 08:36 | OP.PROVAT_ITS ---
01/15/2025 Raffy Gerard Re : Colonoscopy procedure for Melinda Woodardr Murphy This procedure was performed on Wednesday, January 15, 2025. My impressions and recommendations are as follows: Impressions : - Non-bleeding internal hemorrhoids. - One 4 mm polyp in the ascending colon, removed with a hot snare. Resected and retrieved. - Two 4 to 5 mm polyps in the sigmoid colon, removed with a hot snare. Resected and retrieved. - Two 4 to 5 mm polyps in the rectum, removed with a hot snare. Resected and retrieved. - The examination was otherwise normal. Recommendations : - Discharge patient to home (ambulatory). - High fiber diet. - Await pathology results. - Repeat colonoscopy in 5 years for surveillance. - Return to my office PRN. - Continue present medications. My findings are described in the full procedure note, which is enclosed. If I can be of further assistance, please feel free to contact me at . Sincerely, Rome Gibson MD 01/15/2025 8:36:06 AM This report has been signed electronically.
--- NOTE | 2025-01-15 08:43 | PCM.POST.ANE ---
Anesthesia: Postop Eval I Current Vital Signs Temperature: 97 F Pulse Rate: 77 Blood Pressure: 106/92 Respiratory Rate: 16 Pulse Ox: 98 Oxygen Delivery Method: Room Air Assessment Airway patent: Yes Spontaneous unlabored respirations: Yes Mental status: Awake and Calm nausea: No Vomiting: No Anesthesia Complication: No Fluid Hydration Crystalloid volume administer (ml): 400 Total IV fluid infused: 400 Progress Note Anesthesia document: Postop Eval 1 completed: Yes
--- NOTE | 2025-01-15 16:20 | PCM.POSTANE2 ---
Anesthesia Postop Eval I Sum Postop Eval Completion status Anesthesia document: Postop Eval 1 completed: Yes Anesthesia Postop Eval I Summary Anesthesia Postop Eval I Summary: Anesthesia Postop Eval I: Assessment Summary Airway patent Yes 01/15/25 08:43 [email or web address] Spontaneous unlabored Yes 01/15/25 08:43 [email or web address] respirations Mental status Awake,Calm 01/15/25 08:43 [email or web address] nausea No 01/15/25 08:43 [email or web address] Vomiting No 01/15/25 08:43 [email or web address] Anesthesia Postop Eval I: Fluid Summary Crystalloid volume administer 400 01/15/25 08:43 [email or web address] (ml) Colloids volume administered ( ml) Blood Product volume administered (ml) Total IV fluid infused 400 01/15/25 08:43 [email or web address] Anesthesia Postop Eval I: Summary Notes Anesthesia Complication No 01/15/25 08:43 [email or web address] Anesthesia Complication Comment: Post-operative progress note Anesthesia: Postop Eval II Evaluation Mental status: Awake and Calm Pain Level: 1 nausea: No Vomiting: No Complications Anesthesia Complication: No
== END 2025-01-15 09:35 | disposition home or self-care (01) ==
LOC: EN 06:37 → AC 06:38
PROVIDERS: Anesthesiology; PCP Nurse Practitioner Family; Referring Provider Nurse Practitioner Family; Visit Provider Surgery
PROC: 0DJD8ZZ Inspection of Lower Intestinal Tract, Via Natural or Artificial Opening Endoscopic (ICD-10-PCS; CPT 45378; principal; 2025-01-15 07:25)
DX: R19.5 Other fecal abnormalities (principal); E11.9 Type 2 diabetes mellitus without complications; K64.8 Other hemorrhoids; Z90.710 Acquired absence of both cervix and uterus; Z79.84 Long term (current) use of oral hypoglycemic drugs; Z87.891 Personal history of nicotine dependence; Z98.41 Cataract extraction status, right eye; Z98.42 Cataract extraction status, left eye; Z90.11 Acquired absence of right breast and nipple; K63.5 Polyp of colon; K62.1 Rectal polyp
CPT/HCPCS: 45385; 82962; 85027; 88305; J2405

== ENCOUNTER → 2025-01-17 | Outpatient (CLI) | payer MEDICARE, OTHER, SELFPAY ==
[2025-01-17 12:20] LABS: Hematocrit 33.5 % (37-47); Hemoglobin 11.3 g/dL (12.0-15.0); Immature Granulocytes Count 0.010 X10^3/uL (0.0-0.0); Mean Corp Hgb Conc 33.7 g/dL (32-36); Mean Corpuscular Volume 89.8 fL (81-99); Mean Platelet Vol. 11.3 fl (6.2-12.0); NRBC Flagged by Analyzer 0 % (0-5); POSITIVE COUNT YES; POSITIVE DIFFERENTIAL YES; Platelet Count 45 K/mm3 (150-450); RBC Distribution Width CV 13.7 % (11.6-14.6); RBC Distribution Width SD 44.7 fl (35.1-43.9); Red Blood Count 3.73 M/mm3 (4.2-5.4); White Blood Count 2.0 K/mm3 (4.4-11.0)
[2025-01-17 13:01] LABS: AST(SGOT) 58 U/L (<=31); Alanine Aminotransfer ALT/SGPT 54 U/L (<=34); Albumin, Serum 3.6 g/dL (3.4-4.8); Alkaline Phosphatase 86 U/L (35-104); Bilirubin, Direct 0.31 mg/dL (0.00-0.30); Globulin 3.3 g/dL (2.2-4.2); Hepatitis C Antibody Nonreactive (Nonreactive); Vitamin B12 588 pg/mL (180-914)
[2025-01-19 10:34] LABS: HIV Nonreactive (Nonreactive)
== END | disposition home or self-care (01) ==
PROVIDERS: Surgery; PCP Nurse Practitioner Family; Referring Provider Nurse Practitioner Family; Visit Provider Nurse Practitioner Family
DX: D69.6 Thrombocytopenia, unspecified (principal); R19.5 Other fecal abnormalities
CPT/HCPCS: 36415; 80076; 82607; 85025; 86703; 86803

== ENCOUNTER 2025-01-20 14:06 | Emergency (ER) | payer MEDICARE, OTHER, SELFPAY ==
[2025-01-20 14:08] VITALS: BP 141/58; PULSE 88; RESP 18; TEMP 35.9; O2SAT 98
[2025-01-20 14:19] VITALS: BMI 31.1
--- NOTE | 2025-01-20 14:45 | CT_ITS ---
PROCEDURE: BRAIN/HEAD WITHOUT CONTRAST 01/20/2025 REASON FOR EXAM: NEAR SYNCOPE TECHNIQUE: Procedure Code: CTBR Modality: CT Procedure: BRAIN/HEAD WITHOUT CONTRAST Coronal and Sagittal reconstruction series were provided. One or more dose reduction techniques were used (e.g., Automated exposure control, adjustment of the mA and/or kV according to patient size, use of iterative reconstruction technique. RADIATION DOSE SUMMARY: CTDlvol: 44.99 mGy DLP: 745.49 mGycm COMPARISON: None. FINDINGS: Brain: No acute territorial infarction. No acute intracranial hemorrhage. No mass-effect or midline shift. Diffuse white matter hypodensities which are nonspecific but likely due to chronic small-vessel ischemia. Parenchymal volume loss consistent with brain atrophy. No ventriculomegaly. The orbits are unremarkable. The craniocervical junction is unremarkable. CSF Spaces: Mild generalized cerebral atrophy Sinuses/Mastoids: Clear. Bones: No acute bony abnormalities. CT/Brain/Head without Contrast IMPRESSION: No acute intracranial abnormalities. Reading Location: [id number]
--- NOTE | 2025-01-20 14:45 | EKG12_ITS ---
Test Reason : general Blood Pressure : */* mmHG Vent. Rate : 79 BPM Atrial Rate : 79 BPM P-R Int : 166 ms QRS Dur : 80 ms QT Int : 352 ms P-R-T Axes : -9 43 37 degrees QTcB Int : 403 ms Normal sinus rhythm Nonspecific ST abnormality Abnormal ECG Confirmed by BHANU BRIAN, DIANNE ([id number]), continuity editor MIRNA DE LA FUENTE ([id number]) on 01/21/2025 1:06:25 PM Referred By: Confirmed By: DIANNE DRUMMOND MD
--- NOTE | 2025-01-20 14:57 | EX.ED.DYSGE1 ---
HPI History of Present Illness Chief Complaint: General Illness Narrative Narrative: Chief complaint and HPI: 84-year-old female with past medical history of diabetes, new thrombocytopenia presents for evaluation of near syncope. Patient states over the past several weeks she has been having intermittent near syncope. States she was at [employer] today standing up when she developed the same symptoms. States she felt unsteady/weak, blurred vision, nausea, lightheadedness while standing at [employer]. States she had to sit down and symptoms resolved. Triage note states that she had abdominal pain however she denies this to me. States it is nausea. No emesis. Currently scheduled to see hematology for new diagnosis of thrombocytopenia. She denies any fever, chills, shortness of breath, chest pain, dysuria, weakness, focal deficit. Review of systems: See HPI Medications: As listed on the chart Allergies: As listed on the chart PFSH: Per chart Vital signs: As listed on the chart. Reviewed. Physical exam: Gen: A&O x3, NAD Head: Normocephalic, atraumatic Eyes: No sclera icterus, conjunctiva clear, PERRL, EOMI ENT: Moist mucous membranes, No facial asymmetry Neck: Trachea midline, full range of motion CV: RRR, no murmurs, no peripheral edema Resp: Lungs CTA BL, no w/r/c GI: Abd soft, non-distended, non-tender, no r/r/g Musc: Full ROM, no deformity, strength +5/5 in all extremities, no pronator drift, no ataxia Skin: Warm, dry, no petechia Neuro: Alert, oriented, grossly intact, sensation intact, no focal deficits Psych: Cooperative, appropriate mood and affect [facility] Medical History Wears dentures Wears glasses Post-menopausal Cancer Diabetes Bladder disease Former smoker History of echocardiogram Abdominal pain Positive colorectal cancer screening using Cologuard test Home Medications ?Medication ?Instructions ?Recorded ?Last Taken ?Type cholecalciferol (vitamin D3) 25 25 mcg PO QDAY 01/09/25 Unknown History mcg (1,000 unit) capsule cinnamon bark 500 mg capsule 500 mg PO QDAY 01/09/25 Unknown History (Cinnamon) glipizide 5 mg tablet 5 mg PO QDAY 01/09/25 Unknown History potassium chloride 10 mEq 10 meq PO QDAY 01/09/25 Unknown History capsule,extended release Allergy/AdvReac Type Severity Reaction Status Date / Time metformin Allergy Mild Nausea Verified 01/20/25 14:08 Family History Aunt Breast cancer Surgical History History of bilateral cataract extraction Hx of right mastectomy H/O: hysterectomy Social History Smoking Status: Former smoker alcohol intake: never substance use type: does not use EXAM Physical Exam Const Vital Signs: 01/20/25 14:08 01/20/25 14:20 01/20/25 16:07 Temperature 96.6 F L Temperature Source Temporal Pulse Rate 88 86 Pulse Rate [Lying] Pulse Rate [Sitting (for 1 minute prior to obtaining)] Pulse Rate [Standing (for 1 minute prior to obtaining)] Respiratory Rate 18 19 H Respiratory Effort Normal Blood Pressure 141/58 H 119/49 L Blood Pressure [Lying] Blood Pressure [Sitting (for 1 minute prior to obtaining)] Blood Pressure [Standing (for 1 minute prior to obtaining)] Blood Pressure Mean 85 72 Blood Pressure Mean [Lying] Blood Pressure Mean [Sitting (for 1 minute prior to obtaining)] Blood Pressure Mean [Standing (for 1 minute prior to obtaining)] Pulse Ox 98 93 Oxygen Delivery Method Room Air Room Air 01/20/25 16:53 Temperature Temperature Source Pulse Rate Pulse Rate [Lying] 68 Pulse Rate [Sitting (for 1 minute prior to obtaining)] 73 Pulse Rate [Standing (for 1 minute prior to obtaining)] 88 Respiratory Rate Respiratory Effort Blood Pressure Blood Pressure [Lying] 111/48 L Blood Pressure [Sitting (for 1 minute prior to obtaining)] 120/55 L Blood Pressure [Standing (for 1 minute prior to obtaining)] 129/71 H Blood Pressure Mean Blood Pressure Mean [Lying] 69 Blood Pressure Mean [Sitting (for 1 minute prior to obtaining)] 76 Blood Pressure Mean [Standing (for 1 minute prior to obtaining)] 90 Pulse Ox Oxygen Delivery Method MDM MDM MDM Narrative Medical decision making narrative: 84-year-old female with past medical history of diabetes, new thrombocytopenia presents for evaluation of near syncope. Patient states over the past several weeks she has been having intermittent near syncope. States she was at [employer] today standing up when she developed the same symptoms. States she felt unsteady/weak, blurred vision, nausea, lightheadedness while standing at [employer]. States she had to sit down and symptoms resolved. Triage note states that she had abdominal pain however she denies this to me. States it is nausea. Currently at baseline. Differential diagnosis includes but is not limited to orthostatic hypotension, vasovagal near syncope, electrolyte abnormality, dehydration, arrhythmia, intracranial abnormality, UTI, suspect less likely ACS. Exam is not consistent with CVA. NS bolus ordered. Laboratory workup ordered. CBC with pancytopenia. Leukocytosis of 2, anemia of 10, platelets of 49. This is similar to previous labs. Patient is scheduled to follow-up with hematology. CMP unremarkable except for hyperglycemia and transaminitis with an AST of 49 and ALT of 44. Patient has a history of transaminitis. Appears to be her baseline. First troponin unremarkable. Will obtain delta. Chest x-ray shows increased lung markings without consolidation, effusion, pneumothorax, cardiomegaly. Radiology in agreement. States about vascular indistinctness lung bases which may represent infection or edema. Patient not endorsing any pneumonia type symptoms. Will add on BNP. Patient not fluid overloaded on exam. CT of the head shows no acute intracranial abnormalities. Orthostatic vital signs negative. At this point in time, no clear etiology to explain patient's near syncope. Awaiting delta troponin and BNP. Patient signed out to oncoming physician Dr. Hernandes. If delta troponin and BNP unremarkable, patient will be discharged home with plan to follow-up with primary care physician for her near syncope as well as hematology for her pancytopenia. EKG: Interpreted by me/EM physician: EKG shows normal sinus rhythm with nonspecific ST changes. Heart rate 79 Diagnostic: Interpreted by me/EM physician: Chest x-ray no pneumonia, effusion, cardiomegaly, pneumothorax. Radiology in agreement. Impression: 1. Near syncope 2. Pancytopenia Lab Data Labs: Laboratory Results - last 24 hr 01/20/25 15:00 WBC 2.0 L RBC 3.29 L Hgb 10.0 L Hct 29.1 L MCV 88.4 MCH 30.4 MCHC 34.4 RDW Std Deviation 44.6 H RDW Coeff of Tiara 13.8 Plt Count 49 L* MPV 11.2 Immature Gran % (Auto) 0.000 Neut % (Auto) 59.9 Lymph % (Auto) 23.4 Blaine % (Auto) 13.2 H Eos % (Auto) 3.0 Baso % (Auto) 0.5 Absolute Neuts (auto) 1.2 L Absolute Lymphs (auto) 0.46 L Nucleated RBC % 0 Platelet Estimate MKD DEC Sodium 136 Potassium 4.3 Chloride 106 Carbon Dioxide 21.8 Anion Gap 9 BUN 19 Creatinine 0.83 Estim Creat Clear Calc 58.23 Est GFR (MDRD) Non-Af 71 BUN/Creatinine Ratio 23.1 H Glucose 239 H Calcium 9.3 Total Bilirubin 0.59 AST 49 H ALT 44 H Alkaline Phosphatase 87 Troponin T High Sens 12 Total Protein 6.4 Albumin 3.4 Globulin 3.0 Albumin/Globulin Ratio 1.1 Radiography Diagnostic Testing: Clinical Impression(s) from Imaging Studies Brain CT 01/20/25 14:45 IMPRESSION: No acute intracranial abnormalities. Reading Location: [facility] Chest X-Ray 01/20/25 15:50 IMPRESSION: Pulmonary findings as above. Reading Location: [address] Discharge Plan Triage Chief Complaint: General Illness ED Provider: Vickey Bowman Dx/Rx/DC Orders Prescriptions: No Action potassium chloride 10 mEq capsule, extended release 10 meq PO QDAY glipizide 5 mg tablet 5 mg PO QDAY cholecalciferol (vitamin D3) 25 mcg (1,000 unit) capsule 25 mcg PO QDAY cinnamon bark [Cinnamon] 500 mg capsule 500 mg PO QDAY Primary Care Provider: Nicole Arrington Referrals: Nicole Arrington, [employer] MACHINE [employer]ATOR[facility] [Primary Care Provider, Family Practice] Print Language: Latvian
--- OUTSIDE RECORDS SUMMARY | 2025-01-20 15:02 | XMS RPT_ITS | CCD ---
Author Organization [facility] Inform ion Partnership [facility] Care Team Providers Care Probate Lawyer Name Role Phone Osiel Tejeda MD Primary Care Provider Murphy MANAGER PIPELINE-C, Nicole Primary Care Physician Murphy MANAGER PIPELINE-C, Nicole Attending Physician [phone] Murphy MANAGER PIPELINE-C, Nicole Referring Provider Murphy, Nicole Primary Care Unavailable Murphy, Nicole Referring Unavailable Rome Gibson Attending Unavailable Nicole Arrington Primary Care Unavailable Murphy, Nicole Attending Unavailable Murphy, Nicole Referring Unavailable Murphy Nicole Primary Care Unavailable Rome Gibson Attending Unavailable Allergies Allergy Classification Reported Allergen(s) Allergy Type Date of Onset Reaction(s) Facility (3 sources) metFORMIN Drug Allergy 10-16-2015 Other: See Comments [facility] Medications Completed/Discontinued Medications Medication Drug Class(es) Dates Sig (Normalized) Sig (Original) [id number] 200 actuat albuterol 0.09 mg/actuat metered dose [...] Surgery Visit Reporton 01-09 Surgery Visit Report [facility] [address] [place] [address] OFFICE VISIT Date of Service: 01/09/25 MR#: [id number] Acct: [id number] Name: ELIZA TOMAS Rep #: [id number] : 1940 Provider: Dr. Rome chatman MD Age/Sex: 84/F Location: [facility] Status: Signed Intake Vital Signs 01/09/25 09:13 [...] 01/09/25 @ 09:13 by Deb Wan LPN) Aunt Breast cancer Social History (Updated [...] No gallbladder problem and No black,tarry stools Deshaun Hematologic: No blood thinners, No blood disorders, [...] Signature: Date (more content not included)... Normal [facility] Absolute lymphocyte countOrd ered By: Nicole Arrington on 12-05-2024 Lymphocytes Auto (Unsp spec) [#/Vol] 0.39 10*3/uL Low 0.83-4.51 [facility] Absolute neutrophil countOrd ered By: Nicole Arrington on 12-05-2024 Neutrophils (Bld) [#/Vol] 1.7 10*3/uL Low 2.0-7.7 [facility] Anion gap in Serum or Plasma Ordered By: Nicole Arrington on 12-05-2024 Anion gap [Moles/Vol] 12 mmol/L 5-15 [facility] Comment on above: Previous reported re sult: 10 Edited by: LYNDA on 12/05/24:1544 AMENDED REPORT 12/05/24 1544 GAP previously reported as: 10 Automated lymphocyte count a s percentage of total leukocytesOrdered By: Nicole Arrington on 12-05-2024 Lymphocytes/100 WBC Auto (Unsp spec) 15.7 % Low 19-41 [facility] BUN/creatinine ratioOrdered By: Nicole Arrington on 12-05-2024 Urea nitrogen/Creatinine [Mass ratio] 30.3 mg/mg High 10-20 [facility] Comment on above: Previous reported re sult: 30.1 RATIOEdited by: AUTOINS on 12/05/24:1544 AMENDED REPORT 12/05/24 1544 BUN/CRE previously reported as: 30.1 H RATIO Basophil percentageOrdered B y: Nicole Arrington on 12-05-2024 Basophils/100 WBC (Bld) 0.8 % 0-1 [facility] Bilirubin, totalOrdered By: Nicole Arrington on 12-05-2024 Bilirubin [Mass/Vol] 0.87 mg/dL 0.00-1.30 [facility] CBC W/Diff, Automatedon 10- Platelets (Bld) [#/Vol] 49 10*3/uL Invalid Interpretation Code 150450 [facility] Comment on above: Result Comment: CRIT ICAL VALUE CALLED TO YONI PANTOJA 12/05/24 1345 Priyanka Miller. RESULTS READ BACK BY REED. AMENDED REPORT 12/05/24 1345 PLT previously reported as: 49 *L K/mm3 Performed By: #### L 500.4100, L100.0100, L500.4050 #### [facility] [address] [place], [place], [id number] Calculated very low density lipoprotein (VLDL) cholesterol measurementOrdered By: Nicole Arrington on 12-05-2024 Calculated very low density lipoprotein (VLDL) cholesterol measurement 24 mg/dL - [facility] Carbon dioxide, total [Moles /volume] in Central venous bloodOrdered By: Nicole Arrington on 12-05-2024 CO2 [Moles/Vol] 19.5 mmol/L Low 21.0-32.0 [facility] Comment on above: Previous reported re sult: 21.4 mmol/LEdited by: AUTOINS on 12/05/24:1544 AMENDED REPORT 12/05/241543 CO2 previously reported as: 21.4 mmol/L Chloride assayOrdered By: Ra sridevi Arrington on 12-05-2024 Chloride [Moles/Vol] 107 mmol/L 98-108 [facility] Comprehensive Metabolic Prof ilon 12-05-2024 Albumin/Globulin [Mass ratio] 1.0 {ratio} Normal 0.9-2.4 [facility] Comment on above: Result Comment: AMENDED REPORT 12/05/241543 A/G previously reported as: 1.1 RATIO Performed By: #### L 500.4100, L100.0100, L500.4050 #### [facility] [address] [place], [address] BUN/CRE 30.3 RATIO High 10-20 [facility] Comment on above: Result Comment: AMENDED REPORT 12/05/241543 BUN/CRE previously reported as: 30.1 H RATIO Performed By: #### L 500.4100, L100.0100, L500.4050 #### [facility] [address] [place], [address] Calcium [Mass/Vol] 9.8 mg/dL Normal 7.6-11.0 [facility] Comment on above: Result Comment: AMENDED REPORT 12/05/241543 CA previously reported as: 9.6 mg/dL Performed By: #### L 500.4100, L100.0100, L500.4050 #### [facility] [address] [place], [address] CO2 [Moles/Vol] 19.5 mmol/L Low 21.0-32.0 [facility] Comment on above: Result Comment: AMENDED REPORT 12/05/241543 CO2 previously reported as: 21.4 mmol/L Performed By: #### L 500.4100, L100.0100, L500.4050 #### [facility] [address] [place], [address] Creatinine [Mass/Vol] 0.67 mg/dL Low 0.70-1.20 [facility] Comment on above: Result Comment: AMENDED REPORT 12/05/24 1544 CREAT,SERUM previously reported as: 0.65 L mg/dL Performed By: #### L 500.4100, L100.0100, L500.4050 #### [facility] [address] [place], [address] GAP 12 Normal 5-15 [facility] Comment on above: Result Comment: AMENDED REPORT 12/05/24 154 GAP previously reported as: 10 Performed By: #### L 500.4100, L100.0100, L500.4050 #### [facility] [address] [place], [address] Globulin (S) [Mass/Vol] 3.6 g/dL Normal 2.2-4.2 [facility] Comment on above: Result Comment: AMENDED REPORT 12/05/24 154 GLOB previously reported as: 3.3 g/dL Performed By: #### L 500.4100, L100.0100, L500.4050 #### [facility] [address] [place], [address] Glucose [Mass/Vol] 136 mg/dL High 70-99 [facility] Comment on above: Result Comment: AMENDED REPORT 12/05/24 154 GLU previously reported as: 133 H mg/dL Performed By: #### L 500.4100, L100.0100, L500.4050 #### [facility] [address] [place], [address] T PROT 7.2 g/dL Normal 5.9-8.4 [facility] Comment on above: Result Comment: AMENDED REPORT 12/05/24 1544 T PROT previously reported as: 7.0 g/dL Performed By: #### L 500.4100, L100.0100, L500.4050 #### [facility] [address] [place], [address] Urea nitrogen [Mass/Vol] 20 mg/dL High 4-19 [facility] Comment on above: Performed By: #### L 500.4100, L100.0100, L500.4050 #### [facility] [address] [place], [address] Eosinophil percentageOrdered By: Nicolechapo Arrington on 12-05-2024 Eosinophils/100 WBC (Bld) 2.4 % 0-5 [facility] Erythrocyte distribution wid th ratioOrdered By: Kandiyohi Murphy on 12-05-2024 Erythrocyte distribution width (RBC) [Ratio] 14.7 % High 11.6-14.6 [facility] Erythrocyte distribution wid th standard deviationOrdered By: Kandiyohi Murphy on 12-05-2024 Erythrocyte distribution width (RBC) [Ratio] 49.1 fl High 35.1-43.9 [facility] Glomerular filtration rate ( GFR) estimation/1.73 sq m using serum, plasma, or whole bOrdered By: Nicolechapo Arrington on 12-05-2024 GFR/1.73 sq M.predicted among non-blacks MDRD (S/P/Bld) [Vol rate/Area] 88 mL/min/{1.73_m2} >60 [facility] Comment on above: mL/min/1.73m2 CKD-EP I Creatinine Equation (2020) Hematocrit Auto (Bld) [Volum e fraction]Ordered By: Nicole Arrington on 12-05-2024 Hematocrit (Bld) [Volume fraction] 33.8 % Low 37-47 [facility] Hemoglobin measurementOrdere d By: Nicole Arrington on 12-05-2024 Hemoglobin (Bld) [Mass/Vol] 11.4 g/dL Low 12.0-15.0 [facility] Immature granulocytes/100 WB C Auto (Bld)Ordered By: Nicole Arrington on 12-05-2024 Immature granulocytes/100 WBC (Bld) 0.400 % 0.0-0.9 [facility] Comment on above: IG% - Immature Granu locytes (promyelocytes, myelocytes and metamyelocytes) > 1% indicates that a LEFT SHIFT is Present. LDL calc ser/plasOrdered By: Nicole Arrington on 12-05-2024 Cholesterol in LDL [Mass/Vol] 102 mg/dL [facility] Comment on above: Erbtjtdyog=379-633 m g/dL & Higher Ctto=491 mg/dL or greaterFriedwald Equation for LDL-C Laboratory - Chemistry and C hemistry - challengeOrdered By: Nicole Arrington on 12-05-2024 AST [Catalytic activity/Vol] 44 U/L High <32 [facility] Lipid Profileon 12-05-2024 CHOL:HDL 2.92 Normal [facility] Comment on above: Performed By: #### L 500.4100, L100.0100, L500.4050 #### [facility] [address] [place], [place], [address] Cholesterol [Mass/Vol] 192 mg/dL Normal <=200 [facility] Comment on above: Result Comment: Chol esterol level, Desirable <200 mg/dL Borderline high cholesterol 200-239 mg/dL High cholesterol >=240 mg/dL Recommendations of the NCEP Adult Treatment Panel for the following risk-cutoff thresholds for the [place] population. Performed By: #### L 500.4100, L100.0100, L500.4050 #### [facility] [address] [place], [place], [address] Cholesterol in HDL [Mass/Vol] 66 mg/dL Normal [facility] Comment on above: Result Comment: Jana onal Cholesterol Education Program (NCEP) guidelines: <40 mg/dL: Low HDL-cholesterol (major risk factor for CHD) >= 60 mg/dL: High HDL-cholesterol (negative risk factor for CHD) HDL-cholesterol is affected by a number of factors, e.g. smoking, exercise, hormones, sex and age. Performed By: #### L 500.4100, L100.0100, L500.4050 #### [facility] [address] [place], [address] Cholesterol in LDL [Mass/Vol] 102 mg/dL Normal [facility] Comment on above: Result Comment: Bord bdkvef=835-735 mg/dL Higher Vjtk=869 mg/dL or greater Friedwald Equation for LDL-C Performed By: #### L 500.4100, L100.0100, L500.4050 #### [facility] [address] [place], [address] Cholesterol in VLDL [Mass/Vol] 24 mg/dL Normal 5-40 [facility] Comment on above: Performed By: #### L 500.4100, L100.0100, L500.4050 #### [facility] [address] [place], [address] Triglyceride [Mass/Vol] 119 mg/dL Normal [facility] Comment on above: Result Comment: The drugs N-Acetylcysteine and Metamizole may falsely depress this assay. Normal range: <150 mg/dL Borderline High: 150-199 mg/dL High: 200-499 mg/dL Very High: >500 mg/dL Performed By: #### L 500.4100, L100.0100, L500.4050 #### [facility] [address] [place], [address] MCV (mean corpuscular volume ) determinationOrdered By: Nicole Arrington on 12-05-2024 MCV (RBC) [Entitic vol] 90.1 fL 81-99 [facility] Mean corpuscular hemoglobin (MCH) determinationOrdered By: Nicole Arrington on 12-05-2024 MCH (RBC) [Entitic mass] 30.4 pg 27.0-32.0 [facility] Mean corpuscular hemoglobin concentration (MCHC) determinationOrdered By: Nicole Arrington on 12-05-2024 MCHC (RBC) [Mass/Vol] 33.7 g/dL 32-36 [facility] Mean platelet volume determi nationOrdered By: Nicole Arrington on 12-05-2024 Platelet mean volume (Bld) [Entitic vol] 10.9 fL 6.2-12.0 [facility] Monocyte percentageOrdered B y: Nicole Arrington on 12-05-2024 Monocytes/100 WBC (Bld) 11.3 % High 0-10 [facility] Neutrophil percentageOrdered By: Nicole Arrington on 12-05-2024 Neutrophils/100 WBC (Bld) 69.4 % 47-70 [facility] Nucleated red blood cell per centageOrdered By: Nicole Arrington on 12-05-2024 Nucleated RBC/100 WBC (Bld) [Ratio] 0 % 0-5 [facility] Platelet countOrdered By: Ra sridevi Arrington on 12-05-2024 Platelets (Bld) [#/Vol] 49 10*3/uL Critically low 150-450 [facility] Comment on above: CRITICAL VALUE PALOMO D TO YONI PANTOJA12/05/24 1345 Priyanka Miller.RESULTS READ BACK BY REED. Previous reported result: 49 [id number] by: DEEPA on 12/05/24:1345 AMENDED REPORT 12/05/24 1345 PLT previously reported as: 49 *L K/mm3 Platelet estimateOrdered By: Nicole Arrington on 12-05-2024 Platelets LM Ql (Bld) MKD DEC ADEQ [facility] Potassium measurement (mass/ volume)Ordered By: Nicole Arrington on 12-05-2024 Potassium (Unsp spec) [Mass/Vol] 4.3 mmol/L 3.3-5.1 [facility] RBC Auto (Bld) [#/Vol]Ordere d By: Nicole Arrington on 12-05-2024 RBC (Bld) [#/Vol] 3.75 10*6/uL Low 4.2-5.4 [facility] Screening total cholesterol/ high density lipoprotein (HDL) cholesterol ratioOrdered By: Nicole Arrington on 12-05-2024 Cholesterol.total/Choles terol in HDL [Mass ratio] 2.92 {ratio} [facility] Serum creatinine measurement (mass/volume)Ordered By: Nicole Arrington on 12-05-2024 Creatinine [Mass/Vol] 0.67 mg/dL Low 0.70-1.20 [facility] Comment on above: Previous reported re sult: 0.65 mg/dLEdited by: LYNDA on 12/05/24:1544 AMENDED REPORT 12/05/24 1544 CREAT,SERUM previously reported as: 0.65 L mg/dL Serum globulin measurementOr dered By: Nicole Arrington on 12-05-2024 Globulin (S) [Mass/Vol] 3.6 g/dL 2.2-4.2 [facility] Comment on above: Previous reported re sult: 3.3 g/dLEdited by: LYNDA on 12/05/24:1544 AMENDED REPORT 12/05/241543 GLOB previously reported as: 3.3 g/dL Serum glucose measurement (m ass/volume)Ordered By: Nicole Arrington on 12-05-2024 Glucose [Mass/Vol] 136 mg/dL High 70-99 [facility] Comment on above: Previous reported re sult: 133 mg/dLEdited by: LYNDA on 12/05/24:1544 AMENDED REPORT 12/05/24 154 GLU previously reported as: 133 H mg/dL Serum or plasma alanine jefferson otransferase (ALT) measurementOrdered By: Nicole Arrington on 12-05-2024 ALT [Catalytic activity/Vol] 33 U/L <35 [facility] Serum or plasma albumin vikki urement (mass/volume)Ordered By: Nicole Arrington on 12-05-2024 Albumin [Mass/Vol] 3.6 g/dL 3.4-4.8 [facility] Serum or plasma albumin/glob ulin mass ratioOrdered By: Nicole Arrington on 12-05-2024 Albumin/Globulin [Mass ratio] 1.0 {ratio} 0.9-2.4 [facility] Comment on above: Previous reported re sult: 1.1 RATIOEdited by: LYNDA on 12/05/24:1544 AMENDED REPORT 12/05/241543 A/G previously reported as: 1.1 RATIO Serum or plasma alkaline sade sphatase measurementOrdered By: Nicole Arrington on 12-05-2024 ALP [Catalytic activity/Vol] 78 U/L 35-104 [facility] Serum or plasma calcium vikki urement (mass/volume)Ordered By: Nicole Arrington on 12-05-2024 Calcium [Mass/Vol] 9.8 mg/dL 7.6-11.0 [facility] Comment on above: Previous reported re sult: 9.6 mg/dLEdited by: AUTOINS on 12/05/24:1544 AMENDED REPORT 12/05/24 1544 CA previously reported as: 9.6 mg/dL Serum or plasma cholesterol in HDL measurement (mass/volume)Ordered By: Nicole Arrington on 12-05-2024 Cholesterol in HDL [Mass/Vol] 66 mg/dL >40 [facility] Comment on above: National Cholesterol Education Program (NCEP) guidelines:<40 mg/dL: Low HDL-cholesterol (major risk factor for CHD)>= 60 mg/dL: High HDL-cholesterol (negative risk factor for CHD)HDL-cholesterol is affected by a number of factors, e.g. smoking, exercise, hormones, sex and age. Serum or plasma cholesterol measurement (mass/volume)Ordered By: Nicole Arrington on 12-05-2024 Cholesterol [Mass/Vol] 192 mg/dL <201 [facility] Comment on above: Cholesterol level, D esirable <200 mg/dLBorderline high cholesterol 200-239 mg/dLHigh cholesterol >=240 mg/dLRecommendations of the NCEP Adult Treatment Panel for the following risk-cutoff thresholds for the [place] population. Serum or plasma urea nitroge n measurement (mass/volume)Ordered By: Nicole Arrington on 12-05-2024 Urea nitrogen [Mass/Vol] 20 mg/dL High 4-19 [facility] Sodium levelOrdered By: Melissa Arrington on 12-05-2024 Sodium [Moles/Vol] 139 mmol/L 133-145 [facility] Total proteinOrdered By: Josh Arrington on 12-05-2024 Protein [Mass/Vol] 7.2 g/dL 5.9-8.4 [facility] Comment on above: Previous reported re sult: 7.0 g/dLEdited by: AUTOINS on 12/05/24:1544 AMENDED REPORT 12/05/24 1544 T PROT previously reported as: 7.0 g/dL Triglycerides measurementOrd ered By: Nicole Arrington on 12-05-2024 Triglyceride [Mass/Vol] 119 mg/dL <199 [facility] Comment on above: The drugs N-Acetylcy steine and Metamizole may falsely depress this assay. Normal range: <150 mg/dLBorderline High: 150-199 mg/dLHigh: 200-499 mg/dLVery High: >500 mg/dL White blood cell (WBC) count Ordered By: Nicole Arrington on 12-05-2024 WBC (Bld) [#/Vol] 2.5 10*3/uL Low 4.4-11.0 [facility] 06-17-2021 ELIS Telephone (AGINTMLW) THOMELIZA I ([id number]) 1940 F Date Time Provider Department 06/17/21 [...] tablet by mouth once daily. - Insulin Bruni, Disposable, (BD ULTRA-FINE MICRO PEN NEEDLE) 32 [...] Encounter Status:[facility] KEYLA TATE [facility] (AGINTMLW) THOMELIZA Radha ([id number]) 1940 F Date Time Provider Department 02/12/21 [...] we have faxed the request to her marine resource economist and she can call and follow up with them. Thanks. Dr. Nikhil Dale MA 02/12/2021 7:51 AM Signed Both phone VM box are full. REGGIE Bravo MA 02/13/2021 8:47 AM Signed Left message informing patient if she would like Dr. Tejeda to fill out form she will need to call and schedule appointment, also that form has been forwarded to marine resource economist. REGGIE Melo MA 02/16/2021 5:11 PM Signed Left message informing patient that she needs to schedule appointment with Dr. Tejeda. Her Tool Repairer faxed us saying that she has cancelled [...] tablet by mouth once daily. - Insulin Bruni, Disposable, (BD ULTRA-FINE MICRO PEN NEEDLE) 32 [...] Encounter Status:Closed by ANNETTE XAVIER on 02/13/21 [facility] OBSOLETEon 01-26-2021 OBSOLETE Refill (AGINTMLW) THOMELIZA Radha ([id number]) 1940 F Date Time Provider Department 01/26/21 [...] tablet by mouth once daily. - Insulin Bruni, Disposable, (BD ULTRA-FINE MICRO PEN NEEDLE) 32 [...] DAY Encounter Status:Closed by OSIEL TEJEDA on 01/26/21 [facility] OBSOLETE Refill (ENDMED) ELIZA TOMAS I ([id number]) 1940 F Date Time Provider Department 01/26/21 [...] - Lancing Device (LANCING DEVICE WITH LANCETS) [facility] Use as instructed; IDDM, E 11.65 - insulin glargine (LANTUS SOLOSTAR U-100 INSULIN) 100 unit/mL (3 mL) INJECT 38 UNITS UNDER THE SKIN EVERY EVENING - sAXagliptin (ONGLYZA) 5 mg tab Take 1 tablet by mouth once daily. - Insulin Bruni, Disposable, (BD ULTRA-FINE MICRO PEN NEEDLE) 32 [...] Encounter Status:Closed by CHERELLE ROJAS on 01/26/21 [facility] CNCOon 12-18-2020 CNCO Letter Text [facility] OBSOLETEon 12-15-2020 OBSOLETE Refill (AGINTMLW) ELIZA TOMAS I ([id number]) 1940 F Date Time Provider Department 12/15/20 [...] - Lancing Device (LANCING DEVICE WITH LANCETS) [facility] Use as instructed; IDDM, E 11.65 - insulin glargine (LANTUS SOLOSTAR U-100 INSULIN) 100 unit/mL (3 mL) INJECT 38 UNITS UNDER THE SKIN EVERY EVENING - sAXagliptin (ONGLYZA) 5 mg tab Take 1 tablet by mouth once daily. - Insulin Bruni, Disposable, (BD ULTRA-FINE MICRO PEN NEEDLE) 32 [...] Encounter Status:Closed by OSIEL TEJEDA on 12/15/20 [facility] OBSOLETEon 12-11-2020 OBSOLETE Refill (ENDMED) ELIZA TOMAS I ([id number]) 1940 F Date Time Provider Department 12/11/20 [...] - Lancing Device (LANCING DEVICE WITH LANCETS) [facility] Use as instructed; IDDM, E 11.65 - insulin glargine (LANTUS SOLOSTAR U-100 INSULIN) 100 unit/mL (3 mL) INJECT 38 UNITS UNDER THE SKIN EVERY EVENING - sAXagliptin (ONGLYZA) 5 mg tab Take 1 tablet by mouth once daily. - Insulin Bruni, Disposable, (BD ULTRA-FINE MICRO PEN NEEDLE) 32 [...] Status:Closed by DIANELYS DORAN RN on 12/11/20 [facility] OBSOLETEon 11-12-2020 OBSOLETE Refill (AGINTMLW) ELIZA TOMAS I ([id number]) 1940 F Date Time Provider Department 11/12/20 [...] tablet by mouth once daily. - Insulin Bruni, Disposable, (BD ULTRA-FINE MICRO PEN NEEDLE) 32 [...] Encounter Status:Closed by OSIEL TEJEDA on 11/12/20 [facility] OBSOLETE Refill (ENDMED) ELIZA TOMAS I ([id number]) 1940 F Date Time Provider Department 11/12/20 [...] 2nd voicemail left to schedule follow up. Karyn Peralta Ma 11/19/2020 10:07 AM Signed Please [...] tablet by mouth once daily. - Insulin Bruni, Disposable, (BD ULTRA-FINE MICRO PEN NEEDLE) 32 [...] Status:Closed by DIANELYS DORAN RN on 11/21/20 [facility] OBSOLETEon 09-17-2020 OBSOLETE Refill (AGINTMLW) ELIZA TOMAS I ([id number]) 1940 F Date Time Provider Department 09/17/20 [...] - Lancing Device (LANCING DEVICE WITH LANCETS) [facility] Use as instructed; IDDM, E 11.65 - insulin glargine (LANTUS SOLOSTAR U-100 INSULIN) 100 unit/mL (3 mL) INJECT 38 UNITS UNDER THE SKIN EVERY EVENING - sAXagliptin (ONGLYZA) 5 mg tab Take 1 tablet by mouth once daily. - Insulin Bruni, Disposable, (BD ULTRA-FINE MICRO PEN NEEDLE) 32 [...] Encounter Status:Closed by OSIEL TEJEDA on 09/17/20 [facility] Rula 08-20-2020 [facility] Telephone (AGINTMLW) ELIZA TOMAS I ([id number]) 1940 F Date Time Provider Department 08/20/20 OSIEL TEJEDA AGINTMLW During your visit today, we recorded the following information about you: Keyla Tate LPN 08/20/2020 2:01 PM Signed ----- [...] Status:Closed by KEYLA TATE on 08/20/20 Normal [facility] ALBUMIN/CREAT RATIO RND URon 08-19-2020 Albumin Unsp time DL <= 20 mg/L (U) [Mass/Time] <12.0 Normal [facility] Comment on above: Order Comment: Speci men Type: URINE SPECIMEN Performed By: #### U ACR #### [facility] CLIA [id number] [address] [place] [address] Albumin/Creatinine (U) [Mass ratio] <15 Normal <30 [facility] Comment on above: Order Comment: Speci men Type: URINE SPECIMEN Performed By: #### U ACR #### [facility] CLIA [id number] [address] [place] [address] Creatinine (U) [Mass/Vol] 80.8 mg/dL Normal 42.2-237.9 [facility] Comment on above: Order Comment: Speci men Type: URINE SPECIMEN Performed By: #### U ACR #### [facility] CLIA [id number] [address] [place] [address] Comprehensive metabolic 2000 panelon 08-19-2020 Albumin [Mass/Vol] 4.3 g/dL Normal 3.9-4.9 [facility] Care Comment on above: Order Comment: Speci men Type: BLOOD SPECIMEN Performed By: #### L IPB, 64160-2, 6-3 #### [facility] CLIA [id number] [address] [place] [address] [place] ALP [Catalytic activity/Vol] 60 U/L Normal 34-123 [facility] Comment on above: Order Comment: Speci men Type: BLOOD SPECIMEN Performed By: #### L IPB, 16402-0, 6-3 #### [facility] CLIA [id number] [address] [place] [address] [place] [facility] ALT With P-5'-P [Catalytic activity/Vol] 50 U/L High 7-38 [facility] Comment on above: Order Comment: Speci men Type: BLOOD SPECIMEN Performed By: #### L IPB, 96954-8, 6-3 #### [facility] CLIA [id number] [address] [place] [address] [place] Anion gap [Moles/Vol] 11 mmol/L Normal 9-18 [facility] Comment on above: Order Comment: Speci men Type: BLOOD SPECIMEN Performed By: #### L IPB, 87456-3, 6-3 #### [facility] CLIA [id number] [address] [place] [address] [place] AST With P-5'-P [Catalytic activity/Vol] 36 U/L High 13-35 [facility] Comment on above: Order Comment: Speci men Type: BLOOD SPECIMEN Performed By: #### L IPB, 57527-3, 6-3 #### [facility] CLIA [id number] [address] [place] [address] [place] Bilirubin [Mass/Vol] 0.5 mg/dL Normal 0.2-1.3 [facility] Comment on above: Order Comment: Speci men Type: BLOOD SPECIMEN Performed By: #### L IPB, 79304-9, 6-3 #### [facility] CLIA [id number] [address] [facility] [place] [address] [place] Calcium [Mass/Vol] 10.3 mg/dL High 8.5-10.2 [facility] Comment on above: Order Comment: Speci men Type: BLOOD SPECIMEN Performed By: #### L IPB, , 3 #### [facility] CLIA [id number] [address] [facility] [place] [address] [place] Chloride [Moles/Vol] 103 mmol/L Normal 97-105 [facility] Comment on above: Order Comment: Speci men Type: BLOOD SPECIMEN Performed By: #### L IPB, , 3 #### [facility] CLIA [id number] [address] [facility] [place] [address] [place] CO2 [Moles/Vol] 25 mmol/L Normal 22-30 [facility] Comment on above: Order Comment: Speci men Type: BLOOD SPECIMEN Performed By: #### L IPB, , 63 #### [facility] CLIA [id number] [address] [facility] [place] [address] [place] Creatinine [Mass/Vol] 0.78 mg/dL Normal 0.58-0.96 [facility] Comment on above: Order Comment: Speci men Type: BLOOD SPECIMEN Performed By: #### L IPB, , 63 #### [facility] CLIA [id number] [address] [place] [address] [place] GFR/1.73 sq M.predicted among blacks MDRD (S/P/Bld) [Vol rate/Area] mL/min/{1.73_m2} Normal [facility] Comment on above: Order Comment: Speci men Type: BLOOD SPECIMEN Performed By: #### L ROCKYB, , 3015-3 #### [facility] CLIA [id number] [address] [place] [address] [place] GFR/1.73 sq M.predicted among non-blacks MDRD (S/P/Bld) [Vol rate/Area] mL/min/{1.73_m2} Normal [facility] Comment on above: [...] actual GFR. Performed By: #### L IPB, 65292-7, 3015-3 #### [facility] CLIA [id number] [address] [place] [address] [place] Glucose [Mass/Vol] 185 mg/dL High 74-99 [facility] Comment on above: Order Comment: Speci men Type: BLOOD SPECIMEN Result Comment: The [place] Diabetes Association (ADA) provides guidance for cutoff [...] Standards of Medical Care in Diabetes 2016, [place] Diabetes Association. Diabetes Care. 2016.39(Suppl 1). Performed By: #### L IPB, 01645-4, 6-3 #### [facility] CLIA [id number] [address] [facility] [place] [address] [place] Potassium [Moles/Vol] 4.5 mmol/L Normal 3.7-5.1 [facility] Comment on above: Order Comment: Speci men Type: BLOOD SPECIMEN Performed By: #### L IPB, 06907-0, 3016-3 #### [facility] CLIA [id number] [address] [place] [address] [place] Protein [Mass/Vol] 7.1 g/dL Normal 6.3-8.0 [facility] Comment on above: Order Comment: Speci men Type: BLOOD SPECIMEN Performed By: #### L IPB, 27508-1, 3016-3 #### [facility] CLIA [id number] [address] [place] [address] [place] Sodium [Moles/Vol] 139 mmol/L Normal 136-144 [facility] Comment on above: Order Comment: Speci men Type: BLOOD SPECIMEN Performed By: #### L IPB, 54444-5, 3016-3 #### [facility] CLIA [id number] [address] [place] [address] [place] Urea nitrogen [Mass/Vol] 16 mg/dL Normal 7-21 [facility] Comment on above: Order Comment: Speci men Type: BLOOD SPECIMEN Performed By: #### L IPB, 18672-4, 3016-3 #### [facility] CLIA [id number] [address] [place] [address] [place] HCV Ab Ser Qlon 08-19-2020 HCV Ab Ql (S) Negative Normal Negative [facility] Comment on above: Order Comment: Speci men Type: BLOOD SPECIMEN Performed By: #### 1 6128-1 #### [facility] CLIA [id number] [address] [place] [address] LIPID PANEL BASICon 08-20-19 21 Cholesterol [Mass/Vol] 177 mg/dL Normal <200 [facility] Comment on above: Order Comment: Speci men Type: BLOOD SPECIMEN Result Comment: <200 mg/dL, Desirable 200-239 mg/dL, Borderline high >239 mg/dL, High Performed By: #### L SARITA, 14948-1, 3015-3 #### [facility] CLIA [id number] [address] [place] [address] [facility] Cholesterol in HDL [Mass/Vol] 47 mg/dL Normal >39 [facility] Comment on above: Order Comment: Speci men Type: BLOOD SPECIMEN Result Comment: 40-5 9 mg/dL, Acceptable >59 mg/dL, High: Negative risk factor for coronary heart disease <40 mg/dL, Low: Positive risk factor for coronary heart disease Performed By: #### L SARITA, 42432-1, 3 #### [facility] CLIA [id number] [address] [place] [address] [facility] Cholesterol in LDL [Mass/Vol] 92 mg/dL Normal <100 [facility] Comment on above: Order Comment: Speci men Type: BLOOD SPECIMEN Result Comment: <100 mg/dL, Optimal 100-129 mg/dL, Near optimal/above optimal 130-159 mg/dL, Borderline high 160-189 mg/dL, High >189 mg/dL, Very high Secondary prevention optimal LDL Cholesterol levels are recommended to be < 70 mg/dL Performed By: #### L SARITA, 87002-2, 3 #### [facility] CLIA [id number] [address] [place] [address] [facility] Cholesterol in LDL/Cholesterol in HDL [Mass ratio] 1.96 {ratio} Normal <2.54 [facility] Comment on above: Order Comment: Speci men Type: BLOOD SPECIMEN Result Comment: Refe rence: 1. National Cholesterol Education Program ATP III Guideline At-A-Glance Quick Desk Reference: National Heart, Lung, and Blood [place]. National Institutes of Health. 2001: NIH Publication No. 01-3305. 2. An International Atherosclerosis Society position paper: global recommendations for the management of dyslipidemia: executive summary, Atherosclerosis. 2014: 232(2):410-413. Performed By: #### L SARITA, 73086-2, 3016-3 #### [facility] CLIA [id number] [address] [facility] [place] [address] [facility] [place] Cholesterol in VLDL [Mass/Vol] 38 mg/dL High <30 [facility] Comment on above: Order Comment: Speci men Type: BLOOD SPECIMEN Performed By: #### L IPB, 27466-5, 3016-3 #### [facility] CLIA [id number] [address] [place] [address] [place] Cholesterol non HDL [Mass/Vol] 130 mg/dL High <130 [facility] Comment on above: Order Comment: Speci men Type: BLOOD SPECIMEN Result Comment: <130 mg/dL, Optimal 130-159 mg/dL, Near optimal/above optimal 160-189 mg/dL, Borderline high 190-219 mg/dL, High >219 mg/dL, Very high Secondary prevention optimal non HDL Cholesterol levels are recommended to be <100 mg/dL Performed By: #### L IPB, 24511-5, 3015-3 #### [facility] CLIA [id number] [address] [place] [address] [facility] Cholesterol.total/Choles terol in HDL [Mass ratio] 3.77 {ratio} Normal <5.10 [facility] Comment on above: Order Comment: Speci men Type: BLOOD SPECIMEN Performed By: #### L ROCKYB, 14452-4, 6-3 #### [facility] CLIA [id number] [address] [place] [address] [facility] FASTING TIME 12 hrs Normal [facility] Comment on above: Order Comment: Speci men Type: BLOOD SPECIMEN Performed By: #### L IPB, 21970-9, 6-3 #### [facility] CLIA [id number] [address] [place] [address] [facility] Triglyceride [Mass/Vol] 190 mg/dL High <150 [facility] Comment on above: Order Comment: Speci men Type: BLOOD SPECIMEN Result Comment: <150 mg/dL, Normal 150-199 mg/dL, Borderline high 200-499 mg/dL, High >499 mg/dL, Very high Performed By: #### L IPB, 24142-1, 3016-3 #### [facility] CLIA [id number] [address] [place] [address] [facility] TSH SerPl-aCncon 08-19-2020 TSH Qn 1.740 m[IU]/L Normal 0.270-4.200 [facility] Comment on above: Order Comment: Speci men Type: BLOOD SPECIMEN Performed By: #### L IPB, 68889-1, 3016-3 #### [facility] CLIA [id number] [address] [place] [address] [facility] OBSOLETEon 08-14-2020 OBSOLETE Refill (AGINTMLW) ELIZA TOMAS I ([id number]) 1940 F Date Time Provider Department 08/14/20 [...] Encounter Status:Closed by OSIEL TEJEDA on 08/14/20 [facility] OBSOLETEon 07-28-2020 OBSOLETE Refill (AGINTMLW) ELIZA TOMAS I ([id number]) 1940 F Date Time Provider Department 07/28/20 [...] Status:Closed by OSIEL TEJEDA on 07/29/20 Normal [facility] Microalb/Larisa Almanza Albumin DL <= 20 mg/L (U) [Mass/Vol] mg/dL Normal [facility] Comment on above: Performed By: #### M ALCR #### [facility] [address] [place] [address] Creatinine, Urine 69.1 mg/dL Normal 42.2-237.9 [facility] Comment on above: Performed By: #### M ALCR #### [place] [address] MA/Creat Ratio see below Normal 0.0-29.9 [facility] Comment on above: Result Comment: M A/Creat [...] 1-150). Performed By: #### M ALCR #### [place] [address] Hgb A1con 06-26-2019 HbA1c (Bld) [Mass fraction] 223 mg/dL Normal [facility] Comment on above: Performed By: #### H A1C #### [place] [address] HbA1c (Bld) [Mass fraction] 9.4 % High 4.0-5.6 [facility] Comment on above: Result Comment: Amer [place] Diabetes Association guidelines indicate that the patients with HgA1c in the range 5.7 ? 6.4% are at increased risk for development of diabetes, and intervention by lifestyle modification may be beneficial. HgA1c greater or equal to 6.5% is considered diagnostic of diabetes. Performed By: #### H A1C #### [place] [address] Comprehensive Panelon 2019 Albumin [Mass/Vol] 4.4 g/dL Normal 3.9-4.9 [facility] Comment on above: Performed By: #### L LP14 #### [address] [address] ALP [Catalytic activity/Vol] 56 U/L Normal 34-123 [facility] Comment on above: Performed By: #### L LP14 #### [facility] [address] [place] [address] ALT-SGPT Blood 39 U/L High 7-38 [facility] Comment on above: Performed By: #### L LP14 #### [facility] [address] [place] [address] Anion gap [Moles/Vol] 13 mmol/L Normal 9-18 [facility] Comment on above: Performed By: #### L LP14 #### [facility] [address] [place] [address] AST-SGOT Blood 29 U/L Normal 13-35 [facility] Comment on above: Performed By: #### L LP14 #### [place] [address] Bilirubin Ql (U) 0.5 mg/dL Normal 0.2-1.3 [facility] Comment on above: Performed By: #### L LP14 #### [facility] [address] [place] [address] Calcium [Mass/Vol] 10.1 mg/dL Normal 8.5-10.2 [facility] Comment on above: Performed By: #### L LP14 #### [facility] [address] [place] [address] Chloride [Moles/Vol] 103 mmol/L Normal 97-105 [facility] Comment on above: Performed By: #### L LP14 #### [facility] [address] [place] [address] CO2 Blood 23 mmol/L Normal 22-30 [facility] Comment on above: Performed By: #### L LP14 #### [facility] [address] [place] [address] Creatinine [Mass/Vol] 0.77 mg/dL Normal 0.58-0.96 [facility] Comment on above: Performed By: #### L LP14 #### [place] [address] Glucose [Mass/Vol] 162 mg/dL High 74-99 [facility] Comment on above: Result Comment: The [place] Diabetes Association (ADA) provides guidance for cutoff [...] Standards of Medical Care in Diabetes 2016; [place] Diabetes Association. Diabetes Care. 2016;39(Suppl 1). Performed By: #### L LP14 #### [facility] [address] [place], [place] [address] Potassium [Moles/Vol] 4.4 mmol/L Normal 3.7-5.1 [facility] Comment on above: Performed By: #### L LP14 #### [facility] [address] [place], [place] [address] Protein [Mass/Vol] 7.5 g/dL Normal 6.3-8.0 [facility] Comment on above: Performed By: #### L LP14 #### [facility] [address] [place], [place] [address] Sodium [Moles/Vol] 139 mmol/L Normal 136-144 [facility] Comment on above: Performed By: #### L LP14 #### [facility] [address] [place], [place] [address] Urea nitrogen [Mass/Vol] 15 mg/dL Normal 7-21 [facility] Comment on above: Performed By: #### L LP14 #### [facility] [address] [place], [place] [address] Albumin [Mass/Vol] 4.4 g/dL Normal 3.9-4.9 [facility] Comment on above: Performed By: #### L LP14 #### [facility] [address] [place], [place] [address] ALP [Catalytic activity/Vol] 56 U/L Normal 34-123 [facility] Comment on above: Performed By: #### L LP14 #### [facility] [address] [place], [place] [address] ALT-SGPT Blood 38 U/L Normal 7-38 [facility] Comment on above: Performed By: #### L LP14 #### [facility] [address] [place], [place] [address] Anion gap [Moles/Vol] 11 mmol/L Normal 9-18 [facility] Comment on above: Performed By: #### L LP14 #### [facility] [address] [place], [place] [address] AST-SGOT Blood 30 U/L Normal 13-35 [facility] Comment on above: Performed By: #### L LP14 #### [facility] [address] [place] [address] Bilirubin Ql (U) 0.5 mg/dL Normal 0.2-1.3 [facility] Comment on above: Performed By: #### L LP14 #### [facility] [address] [place], [place] [address] Calcium [Mass/Vol] 10.1 mg/dL Normal 8.5-10.2 [facility] Comment on above: Performed By: #### L LP14 #### [facility] [address] [place], [place] [address] Chloride [Moles/Vol] 101 mmol/L Normal 97-105 [facility] Comment on above: Performed By: #### L LP14 #### [facility] [address] [place], [place] [address] CO2 Blood 24 mmol/L Normal 22-30 [facility] Comment on above: Performed By: #### L LP14 #### [facility] [address] [place], [place] [address] Creatinine [Mass/Vol] 0.77 mg/dL Normal 0.58-0.96 [facility] Comment on above: Performed By: #### L LP14 #### [facility] [address] [place] [address] Glucose [Mass/Vol] 162 mg/dL High 74-99 [facility] Comment on above: Result Comment: The [place] Diabetes Association (ADA) provides guidance for cutoff [...] Standards of Medical Care in Diabetes 2016; [place] Diabetes Association. Diabetes Care. 2016;39(Suppl 1). Performed By: #### L LP14 #### [place] [address] Potassium [Moles/Vol] 4.4 mmol/L Normal 3.7-5.1 [facility] Comment on above: Performed By: #### L LP14 #### [place] [address] Protein [Mass/Vol] 7.6 g/dL Normal 6.3-8.0 [facility] Comment on above: Performed By: #### L LP14 #### [place] [address] Sodium [Moles/Vol] 136 mmol/L Normal 136-144 [facility] Comment on above: Performed By: #### L LP14 #### [place] [address] Urea nitrogen [Mass/Vol] 15 mg/dL Normal 7-21 [facility] Comment on above: Performed By: #### L LP14 #### [place] [address] Hemogram/Diffon 06-25-2019 Abs. Baso 0.02 thou/cmm Normal 0.00-0.08 [facility] Comment on above: Performed By: #### L CBCD #### [place] [address] Abs. [place] 0.39 thou/cmm Normal 0.20-1.00 [facility] Comment on above: Performed By: #### L CBCD #### [facility] [address] [place], [place] [address] Abs. Neut (ANC) 1.90 thou/cmm Low 3.00-5.67 [facility] Comment on above: Performed By: #### L CBCD #### [address] [address] Basophils/100 WBC (Bld) 0.6 % Normal [facility] Comment on above: Performed By: #### L CBCD #### [address] [address] Eosinophils (Bld) [#/Vol] 0.08 thou/cmm Normal 0.00-0.41 [facility] Comment on above: Performed By: #### L CBCD #### [address] [address] Eosinophils/100 WBC (Bld) 2.5 % Normal [facility] Comment on above: Performed By: #### L CBCD #### [address] [address] Erythrocyte distribution width (RBC) [Ratio] 13.6 % Normal 11.5-15.9 [facility] Comment on above: Performed By: #### L CBCD #### [address] [address] Hematocrit (Bld) [Volume fraction] 42.5 % Normal 37.0-47.0 [facility] Comment on above: Performed By: #### L CBCD #### [address] [address] Hemoglobin (Bld) [Mass/Vol] 14.0 g/dL Normal 12.0-16.0 [facility] Comment on above: Performed By: #### L CBCD #### [address] [address] Lymphocytes (Bld) [#/Vol] 0.81 thou/cmm Low 1.50-3.65 [facility] Comment on above: Performed By: #### L CBCD #### [facility] [address] [place], [place] [address] Lymphocytes/100 WBC (Bld) 25.3 % Normal [facility] Comment on above: Performed By: #### L CBCD #### [facility] [address] [place], [place] [address] MCH (RBC) [Entitic mass] 29.6 pg Normal 27.0-31.0 [facility] Comment on above: Performed By: #### L CBCD #### [facility] [address] [place], [place] [address] MCHC (RBC) [Mass/Vol] 32.9 % Normal 32.0-36.0 [facility] Comment on above: Performed By: #### L CBCD #### [facility] [address] [place], [place] [address] MCV (RBC) [Entitic vol] 89.9 fL Normal 81.0-99.0 [facility] Comment on above: Performed By: #### L CBCD #### [facility] [address] [place], [place] [address] Monocytes/100 WBC (Bld) 12.3 % Normal [facility] Comment on above: Performed By: #### L CBCD #### [facility] [address] [place] [address] Platelet mean volume (Bld) [Entitic vol] 11.6 fL High 7.1-10.5 [facility] Comment on above: Performed By: #### L CBCD #### [facility] [address] [place], [place] [address] Platelets (Bld) [#/Vol] 81 thou/cmm Low 150-400 [facility] Comment on above: Performed By: #### L CBCD #### [facility] [address] [place], [place] [address] RBC (Bld) [#/Vol] 4.73 mil/cmm Normal 4.20-5.40 [facility] Comment on above: Performed By: #### L CBCD #### [facility] [address] [place] [address] Seg Neutrophil 59.3 % Normal [facility] Comment on above: Performed By: #### L CBCD #### [facility] [address] [place] [address] WBC (Bld) [#/Vol] 3.2 thou/cmm Low 4.8-10.5 [facility] Comment on above: Performed By: #### L CBCD #### [facility] [address] [place] [address] [facility] H[facility] Normal [facility] Comment on above: Performed By: #### L LPF #### [facility] [address] [place] [address] Cholesterol [Mass/Vol] 148 mg/dL Normal 0-199 [facility] Comment on above: Result Comment: Tota l Cholesterol < 200 mg/dL, Desirable Total Cholesterol 200 to 239 mg/dL, Borderline high Total Cholesterol > 239 mg/dL, High Performed By: #### L LPF #### [facility] [address] [place] [address] Cholesterol in HDL [Mass/Vol] 50 mg/dL Normal [facility] Comment on above: Result Comment: Refe rence Range: HDL Cholesterol 40- 59 mg/dL, Acceptable HDL Cholesterol >59 mg/dL, High; Negative risk factor for coronary heart disease HDL Cholesterol <40 mg/dL, Low; Positive risk factor for coronary heart disease Performed By: #### L LPF #### [facility] [address] [place] [address] Cholesterol in LDL [Mass/Vol] 58 mg/dL Normal 0-99 [facility] Comment on above: Result Comment: LDL Cholesterol < 100 mg/dL, Optimal LDL Cholesterol 100 to 129 mg/dL, Near optimal/above optimal LDL Cholesterol 130 to 159 mg/dL, Borderline high LDL Cholesterol 160 to 189 mg/dL, High LDL Cholesterol > 189 mg/dL, Very high Secondary prevention optimal LDL Cholesterol levels are recommended to be < 70 mg/dL Performed By: #### L LPF #### [place] [address] Cholesterol in LDL/Cholesterol in HDL [Mass ratio] 1.16 Normal 0.00-2.53 [facility] Comment on above: Performed By: #### L LPF #### [place] [address] Cholesterol.total/Choles terol in HDL [Mass ratio] 2.96 {ratio} Normal 0.00-5.09 [facility] Comment on above: Performed By: #### L LPF #### [place] [address] Non-HDL Cholesterol 98 mg/dL Normal 0-129 [facility] Comment on above: Result Comment: Non HDL [...] mg/dL Performed By: #### L LPF #### [place] [address] Triglyceride Blood 198 mg/dL High 0-149 [facility] Comment on above: Result Comment: Trig lycerides < 150 mg/dL, Normal Triglycerides 150 to 199 mg/dL, Borderline high Triglycerides 200 to 499 mg/dL, High Triglycerides > 499 mg/dL, Very high Performed By: #### L LPF #### [place] [address] VLDL Cholesterol 40 mg/dL High 0-29 [facility] Comment on above: Performed By: #### L LPF #### [place] [address] MDRD eGFRon 06-25-2019 GFR/1.73 sq M predicted among non-blacks MDRD (S/P/Bld) [Vol rate/Area] mL/min/{1.73_m2} Normal >60mL/min/1. 73m2 [facility] Comment on above: Result Comment: If t he patient is , multiply the result by 1.210. Performed By: #### L GFR #### [place] [address] GFR/1.73 sq M predicted among non-blacks MDRD (S/P/Bld) [Vol rate/Area] mL/min/{1.73_m2} Normal >60mL/min/1. 73m2 [facility] Comment on above: Result Comment: If t he patient is , multiply the result by 1.210. Performed By: #### L GFR #### [facility] [address] [place], [place] [address] Encounters Encounter Date Encounter Type Care Provider Facility Start: 01-15-2025 ambulatory [facility] Facility:[facility] Start: 01-09-2025 End: 01-09-2025 ambulatory [facility] [place] Start: 12-05-2024 End: 12-05-2024 ambulatory [facility] MANAGER [employer] Work Phone: -[facility] [employer] Start: 12-05-2024 End: 12-05-2024 Patient encounter procedure Nicole Murphy MANAGER [facility] -[facility] [place] Work Phone: Start: 12-05-2024 End: 12-05-2024 ambulatory [facility] Facility:[facility] Start: 06-17-2021 Telephone encounter Osiel beal MD Work Phone: [facility] Comment on above: ACO- A1C outreach (F irst attempt) Start: 06-15-2021 Refill Osiel wetzel MD Work Phone: [facility] Comment on above: Refill Request Start: 06-11-2021 Refill Osiel wetzel MD Work Phone: [facility] Comment on above: Refill Request Procedures Date Procedure Procedure Detail Performing Clinician Start: 06-18-2020 Adult depression screening assessment Osiel Tejeda MD Work Phone: Plan of Treatment Date Care Activity Detail Author Start: 08-05-2027 Urine microalbumin profile DTA P,TDAP,TD (2 - Td or Tdap) [facility] Start: 10-29-2021 Influenza vaccination INFLUENZA (Sea son Ended) [facility] Start: 08-19-2021 Hepatitis B screening URINE AL BUMIN:CREATININE RATIO [facility] Start: 08-19-2021 Hepatitis B surface antibody level LDL CHOLESTEROL [facility] Start: 06-18-2021 Adult depression scr eening assessment DEPRESSION SCREENING [facility] Start: 06-18-2021 ANNUAL PCP TEAM TRAINING COORDINATOR [place] DISEASE VISIT ANNUAL PCP TEAM CHRONIC DISEASE VISIT [facility] Start: 06-18-2021 BP CONTROLLED (<130/80) BP CONTROLLE D (<130/80) [facility] Start: 06-18-2021 SHINGRIX VACCINE (2 of 3) TAVARES GRIX VACCINE (2 of 3) [facility] Comment on above: Postponed from 05/15 (Declined at this time) Start: 06-18-[address] [facility] Comment on above: Postponed from 05/26 (Declined at this time) Start: 02-28-2021 ADVANCE DIRECTIVE DISCUSSION ADVANCE DIRECTIVE DISCUSSION [facility] Start: 09-04-2020 Hemoglobin A1c/Hemoglobin.total in Blood HBA1C [facility] Start: 08-06-2020 3 comp foot exam completed DIABETIC FOOT EXAM [facility] Start: 08-17-2018 FECAL OCCULT BLOOD FECAL OCCULT BLOO D [facility] Start: 08-16-2018 Hepatitis C antibody , confirmatory test DILATED RETINAL EXAM [facility] Start: 05-27-1945 COVID-19 VACCINE (1) COVID-19 VACCIN E (1) [facility] Immunizations Immunization Date Immunization Notes Care Provider Fa sunita 08-04-2017 pneumococcal conjuga te vaccine, 13 valent Osiel Tejeda MD Work Phone: [facility] 03-20-2013 zoster vaccine, live Osiel Tejeda MD Work Phone: [facility] 02-29-2008 pneumococcal polysaccharide vaccine, 23 valent Osiel Tejeda MD Work Phone: [facility] Payers Date Payer Category Payer Medicare [id number] 2024 Self-pay 2024 Unknown [id number] 2018 Medicare MEDICARE MEDICAR E A AND B [id number] 2018-Present [phone] [place] [address] Medicare [id number] 2018 Unknown [employer] BLUE CARD TRADITIONAL OOS [id number] 2018-Present [phone] [address] [place] [address] Indemnity [id number] Unknown [id number] Unknown [id number] Unknown [id number] Social History Date Type Detail [facility] End: 02-[facility] History of tobacco use Current smoker 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 Start: 1940 Sex Assigned At Not on file [facility] Tobacco smoking stat [facility] Unknown if ever smoked [facility] Work Phone: Sex Female [facility] Start: 1940 Sex Assigned At Female [facility] Medical Equipment Procedure Code Equipment Code [...] Letty Dale MA documented in this encounter [facility] Note 06-17-2021 Telephone Encounter - Keyla [...] Keyla Tate LPN documented in this encounter [facility] Note 06-17-2021 Telephone Encounter - Graciela [...] Letty Dale MA documented in this encounter [facility] History of Past illness Narrative 02-03-2017 Note Date & Type Note Facility 02-03-2017 History of Past i llness Narrative Problem Noted Date Resolved Date Abdominal pain 02/03/2017 08/04/2017 Nausea 02/03/2017 08/04/2017 documented as of this encounter (statuses as of 06/17/2021) [facility] History of Past illness Narrative 02-03-2017 Note Date & Type Note Facility 02-03-2017 History of Past i llness Narrative Problem Noted Date Resolved Date Abdominal pain 02/03/2017 08/04/2017 Nausea 02/03/2017 08/04/2017 documented as of this encounter (statuses as of 06/18/2021) [facility] History of Past illness Narrative 02-03-2017 Note Date & Type Note Facility 02-03-2017 History of Past i llness Narrative Problem Noted Date Resolved Date Abdominal pain 02/03/2017 08/04/2017 Nausea 02/03/2017 08/04/2017 documented as of this encounter (statuses as of 06/18/2021) [facility] Evaluation note Note Date & Type Note Facility Evaluation note Diagnosis Essential hypertension Unspecified essential hypertension documented in this encounter [facility] Evaluation note Note Date & Type Note Facility Evaluation note No assessment information availa ble [facility] Work Phone: Reason for referral (narrative) Note Date & Type Note Facility Reason for referral (narrative) No reason for referral information available [facility] Work Phone: Summary Purpose Family History No Family History Records FoundNo Family History Records FoundNo Family History Records FoundNo Family History Records Found Advance Directives No Advanced Directives Records FoundNo Advanced Directives Records FoundNo Advanced Directives Records FoundNo Advanced Directives Records Found Additional Source Comments INFORMATION SOURCE (unrecogn ized section and content) DATE CREATED AUTHOR 08/07/2019 [facility] DATE CREATED AUTHOR AUTHOR'S ORGANIZ ATION 08/24/2020 [facility] DATE CREATED AUTHOR AUTHOR'S ORGANIZ ATION 06/18/2021 [facility] DATE CREATED AUTHOR AUTHOR'S ORGANIZ ATION 01/10/2025 [facility] Source Comments (unrecognize d section and content) In the event this informatio n is protected by the Federal Confidentiality of Alcohol and Drug Abuse Patient Records regulations: The Federal rules restrict any use of the information to criminally investigate or prosecute any alcohol or drug abuse patient.[facility] the event this information is protected by the Federal Confidentiality of Alcohol and Drug Abuse Patient Records regulations: The Federal rules restrict any use of the information to criminally investigate or prosecute any alcohol or drug abuse patient.[facility] the event this information is protected by the Federal Confidentiality of Alcohol and Drug Abuse Patient Records regulations: The Federal rules restrict any use of the information to criminally investigate or prosecute any alcohol or drug abuse patient.[facility] Reason for Visit (unrecogniz ed section and content) Reason Comments ACO- A1C outreach First attempt Reason Comments Refill Request Care Teams (unrecognized sec tion and content) Probate Lawyer Relationship Specialty Start Date End Date Osiel Tejeda MD [address], [place] [phone] PCP - General Internal Medicine 04/12/17 Probate Lawyer Relationship Specialty Start Date End Date Osiel Tejeda MD [address], [place] [id number] PCP - General Internal Medicine 04/12/17 Team [...] BE BASED ON THE PRIMARY CLINICAL RECORDS. [facility] [employer] provides no warranty or guarantee of the accuracy or completeness of information in this document.
[2025-01-20 15:11] LABS: Hematocrit 29.1 % (37-47); Hemoglobin 10.0 g/dL (12.0-15.0); Immature Granulocytes Count 0.000 X10^3/uL (0.0-0.0); Mean Corp Hgb Conc 34.4 g/dL (32-36); Mean Corpuscular Volume 88.4 fL (81-99); Mean Platelet Vol. 11.2 fl (6.2-12.0); NRBC Flagged by Analyzer 0 % (0-5); POSITIVE COUNT YES; POSITIVE DIFFERENTIAL YES; RBC Distribution Width CV 13.8 % (11.6-14.6); RBC Distribution Width SD 44.6 fl (35.1-43.9); Red Blood Count 3.29 M/mm3 (4.2-5.4); White Blood Count 2.0 K/mm3 (4.4-11.0)
[2025-01-20 15:15] LABS: Differential Indicated SCAN CRITERIA MET; Platelet Count 49 K/mm3 (150-450)
[2025-01-20 15:27] LABS: AST(SGOT) 49 U/L (<=31); Alanine Aminotransfer ALT/SGPT 44 U/L (<=34); Albumin, Serum 3.4 g/dL (3.4-4.8); Alkaline Phosphatase 87 U/L (35-104); Anion Gap 9 (5-15); BUN 19 mg/dL (4-19); BUN/Creat Ratio 23.1 RATIO (10-20); Calcium,Total 9.3 mg/dL (7.6-11.0); Carbon Dioxide 21.8 mmol/L (21.0-32.0); Chloride 106 mmol/L (98-108); Estimated Creatinine Clearance 58.23 ml/min (50-250); Globulin 3.0 g/dL (2.2-4.2); Glucose 239 mg/dL (70-99); Potassium 4.3 mmol/L (3.3-5.1)
[2025-01-20 15:41] LABS: Troponin T High Sensitivity 12 ng/L (<=14)
--- NOTE | 2025-01-20 15:50 | RAD_ITS ---
PROCEDURE: CHEST PA AND LATERAL 01/20/2025 REASON FOR EXAM: NEAR SYNCOPE TECHNIQUE: Procedure Code: RADCXR Modality: DX Procedure: CHEST PA AND LATERAL FINDINGS: The heart is normal in size. Mild vascular indistinctness lung bases which may represent infection or edema. No acute osseous abnormalities. RAD/Chest PA and Lateral IMPRESSION: Pulmonary findings as above. Reading Location: [id number]
[2025-01-20 16:07] VITALS: BP 119/49; PULSE 86; RESP 19; O2SAT 93
[2025-01-20 16:53] VITALS: BP 111/48; BP 120/55; BP 129/71; PULSE 68; PULSE 73; PULSE 88
[2025-01-20] MEDS: 0.9% Normal Saline (1000mL) 1,000 ML 1000 ML IV (17:15)
[2025-01-20 17:16] LABS: Mucous, Urine 0 SEEN /hpf (<or=2+); Red Blood Cells-Urine 0 SEEN /hpf (0-5)
[2025-01-20 17:18] LABS: Color, Urine Yellow (Yellow); Glucose, Dipstick 250 mg/dl (Normal); Ketone-Dipstick Negative (Negative); Leukocyte Esterase-Dipstick 25 /ul (Negative); Nitrite-Dipstick Positive (Negative); Occult Blood-Urine Negative /ul (Negative); Protein-Dipstick 15 mg/dl (Negative); Specific Gravity, Urine 1.020 (1.002-1.030); Urine Bilirubin Dipstick Negative (Negative)
[2025-01-20 17:24] LABS: Pro- Brain NATRIURETIC PEPTIDE 39 pg/mL (<=1800)
[2025-01-20 17:27] LABS: Squamous Epithelial Cells - UA 0-5 SEEN /hpf (5-10)
[2025-01-20 17:36] LABS: Troponin T High Sens 2 HR 11 ng/L (<=14)
[2025-01-20 18:00] VITALS: BP 110/53; PULSE 75; RESP 18; O2SAT 100
[2025-01-20 18:37] VITALS: BP 120/68; PULSE 75; RESP 18; TEMP 35.9; O2SAT 100
== END 2025-01-20 19:05 | disposition home or self-care (01) ==
PROVIDERS: Surgery; Emergency Provider Emergency Medicine; PCP Nurse Practitioner Family; Visit Provider Emergency Medicine
DX: R42 Dizziness and giddiness (principal); D61.818 Other pancytopenia; E11.9 Type 2 diabetes mellitus without complications; Z87.891 Personal history of nicotine dependence; N39.0 Urinary tract infection, site not specified; D69.6 Thrombocytopenia, unspecified
CPT/HCPCS: 70450; 71046; 80053; 81001; 83880; 84484; 85025; 87086; 87088; 87186; 93005; 96360; 99284; A4216